=== PATIENT | female | born 1995 | race Caucasian/White ===

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

== ENCOUNTER 2018-08-04 12:29 | Emergency (ER) | payer SELFPAY ==
[2018-08-04] MEDS ORDERED: BENZONATATE 100 MG CAPSULE PO ONE (13:11)
[2018-08-04] MEDS: NORMAL SALINE 1000 ML 1,000 ML IV PRN ×2 (13:46→13:48)
--- NOTE | 2018-08-04 13:54 | ER Document Report ---
Entered by ADRIÁN KERN SCRIBE 08/04/18 1339 Acting as scribe for:JANICE CHU DO ED Medical Screen (RME) - General Chief Complaint: Cough Stated Complaint: DIFFICULTY BREATHING/COUGH/DIABETIC Time Seen by Provider: 08/04/18 13:06 Notes: 23-year-old female who is a type I diabetic that presents to the emergency department today with complaints of a cough with nasal congestion for approximately 1 month. Patient was seen at [facility] 3 weeks ago for this and was started on Zyrtec which she states has not helped her symptoms. Patient admits an occasionally productive cough without any blood in the sputum. Patient states her blood sugars have been reading "high" a lot of the time recently. Patient has been in DKA in the past and she states it feels "a little like that". Patient states with her cough she sometimes gets associated chest pain that radiates to her back and she feels "tired all the time". Patient denies any vomiting or fevers. Admits intermittent abdominal pain. Admits nausea. I have greeted and performed a rapid initial assessment of this patient. A comprehensive ED assessment and evaluation of the patient, analysis of test results, and completion of the medical decision making process will be conducted by additional ED providers. Review of systems: Constitutional: Denies fevers. EENT: Nasal congestion. Cardiovascular: No symptoms reported Respiratory: Cough. Chest wall pain. Gastrointestinal: Denies vomiting. Genitourinary: No symptoms reported Musculoskeletal: Back pain. Skin: No symptoms reported Hematologic/Lymphatic: No symptoms reported Neurological/Psychological: No symptoms reported Yes All other systems reviewed and negative PHYSICAL EXAM GENERAL: Alert, interacts well. Congested sounding voice. Appears fatigued. HEAD: Normocephalic, atraumatic. EYES: Pupils equal, round, and reactive to light. Extraocular movements intact. ENT: Oral mucosa dry, tongue midline. NECK: Full range of motion. Supple. Trachea midline. LUNGS: Clear to auscultation bilaterally, no wheezes, rales, or rhonchi. No respiratory distress. HEART: Tachycardic, regular rhythm. No murmurs, gallops, or rubs. EXTREMITIES: Moves all 4 extremities spontaneously. NEUROLOGICAL: Alert and oriented x3. Normal speech. PSYCH: Normal affect, normal mood. SKIN: Warm and dry. TRAVEL OUTSIDE OF THE [place] IN LAST 30 DAYS: No - Related Data Allergies/Adverse Reactions: tramadol Allergy (Verified 08/04/18 12:32) Past Medical History Renal/ Medical History: Denies: Hx Peritoneal Dialysis Psychiatric Medical History: Reports: Hx Depression - Immunizations Hx Diphtheria, Pertussis, Tetanus Vaccination: Yes Physical Exam - Vital signs Vitals: Temp Pulse Resp BP Pulse Ox 99.0 F 122 H 20 130/79 H 99 08/04/18 12:48 08/04/18 12:48 08/04/18 12:48 08/04/18 12:48 08/04/18 12:48 Course - Vital Signs Vital signs: Temp Pulse Resp BP Pulse Ox 99.0 F 122 H 20 130/79 H 99 08/04/18 12:48 08/04/18 12:48 08/04/18 12:48 08/04/18 12:48 08/04/18 12:48 I personally performed the services described in the documentation, reviewed and edited the documentation which was dictated to the scribe in my presence, and it accurately records my words and actions.
[2018-08-04 14:10] LABS: VENOUS BLOOD BASE EXCESS -15.7 mmol/L; VENOUS BLOOD HCO3 10.8 mmol/L (20-32); VENOUS BLOOD PCO2 28.3 mmHg (35-63); VENOUS BLOOD PH 7.2 (7.30-7.42)
[2018-08-04 14:12] LABS: APPEARANCE,URINE CLOUDY; BILIRUBIN,URINE NEGATIVE (NEGATIVE); COLOR,URINE STRAW; GLUCOSE, URINE >=500 mg/dL (NEGATIVE); KETONES,URINE 80 mg/dL (NEGATIVE); LEUKOCYTE ESTERASE,URINE TRACE (NEGATIVE); NITRITE,URINE NEGATIVE (NEGATIVE); PROTEIN,URINE NEGATIVE (NEGATIVE); URINE SPECIFIC GRAVITY 1.024; UROBILINOGEN,URINE NEGATIVE mg/dL (<2.0)
[2018-08-04 14:25] LABS: ABSOLUTE EOSINOPHILS # (AUTO) 0.1 10^3/uL (0.0-0.6); ABSOLUTE LYMPHOCYTES (AUTO) 1.4 10^3/uL (0.5-4.7); ABSOLUTE MONOCYTES (AUTO) 0.9 10^3/uL (0.1-1.4); ABSOLUTE NEUT (AUTO) 8.8 10^3/uL (1.7-8.2); BASOPHILS % (AUTO) 0.4 % (0-2); EOSINOPHILS % (AUTO) 0.9 % (0-6); HEMATOCRIT 42.1 % (36.0-47.0); HEMOGLOBIN 13.8 g/dL (12.0-15.5); LYMPHOCYTES % (AUTO) 12.3 % (13-45); MEAN CORPUSCULAR HEMOGLOBIN 33.2 pg (27.0-33.4); MEAN CORPUSCULAR HGB CONC 32.8 g/dL (32.0-36.0); MEAN CORPUSCULAR VOLUME 101 fl (80-97); MONOCYTES % (AUTO) 8.4 % (3-13); PLATELET COUNT 342 10^3/uL (150-450); RED BLOOD COUNT 4.16 10^6/uL (3.72-5.28); RED CELL DISTRIBUTION WIDTH 14.3 % (11.5-14.0); TOTAL CELLS COUNTED % (AUTO) 100 %; WHITE BLOOD COUNT 11.3 10^3/uL (4.0-10.5)
[2018-08-04 14:26] LABS: ALANINE AMINOTRANSFERASE 202 U/L (9-52); ALBUMIN 4.4 g/dL (3.5-5.0); ALKALINE PHOSPHATASE 100 U/L (38-126); ASPARTATE AMINO TRANSFERASE 124 U/L (14-36); BILIRUBIN,DIRECT 0.4 mg/dL (0.0-0.4); CALCIUM 9.5 mg/dL (8.4-10.2); CARBON DIOXIDE 11 mmol/L (22-30); GLUCOSE 352 mg/dL (75-110); POTASSIUM 4.2 mmol/L (3.6-5.0); TOTAL PROTEIN 6.9 g/dL (6.3-8.2)
[2018-08-04 14:28] LABS: BLOOD UREA NITROGEN 11 mg/dL (7-20)
[2018-08-04 14:31] LABS: CHLORIDE 95 mmol/L (98-107); SODIUM 133.5 mmol/L (137-145)
[2018-08-04 14:32] LABS: ANION GAP 28 (5-19)
[2018-08-04] MEDS ORDERED: NORMAL SALINE 1000 ML 1,000 ML IV ONE ×2 (14:33→14:38)
[2018-08-04] MEDS ORDERED: RINGERS SOLUTION,LACTATED 1,000 ML IV PRN (14:37)
--- NOTE | 2018-08-04 14:41 | RADIOLOGY REPORT (SQ) ---
EXAM DESCRIPTION: CHEST 2 VIEWS COMPLETED DATE/TIME: 08/04/2018 2:26 pm REASON FOR STUDY: cough, chest pain COMPARISON: None. EXAM PARAMETERS: NUMBER OF VIEWS: two views TECHNIQUE: Digital Frontal and Lateral radiographic views of the chest acquired. RADIATION DOSE: NA LIMITATIONS: none FINDINGS: LUNGS AND PLEURA: No opacities, masses or pneumothorax. No pleural effusion. MEDIASTINUM AND HILAR STRUCTURES: No masses or contour abnormalities. HEART AND VASCULAR STRUCTURES: Heart normal size. No evidence for failure. BONES: No acute findings. HARDWARE: None in the chest. OTHER: No other significant finding. IMPRESSION: NO ACUTE RADIOGRAPHIC FINDING IN THE CHEST. TECHNICAL DOCUMENTATION: JOB ID: [id number] [employer]- All Rights Reserved Reading location - IP/workstation name: [email or web address]
[2018-08-04] MEDS ORDERED: LIDOCAINE 2% INJ-PF (20 MG/ML) 10 ML AMPUL NEB ONE (14:53)
[2018-08-04] MEDS ORDERED: ACETAMINOPHEN 325 MG TABLET PO ONE (14:53)
[2018-08-04] MEDS ORDERED: INSULIN REG, HUMAN 100 UNIT/ML 3 ML VIAL (PYX) IV ONE (14:59)
--- NOTE | 2018-08-04 15:12 | ER Document Report ---
ED General - General Chief Complaint: Cough Stated Complaint: DIFFICULTY BREATHING/COUGH/DIABETIC Time Seen by Provider: 08/04/18 13:06 Notes: Patient is a 23-year-old female presents to the emergency department for generalized cough, congestion, body aches for the last 3 weeks. Patient states 3 weeks ago she was seen at the [facility] diagnosed with a sinus infection and told to take ymyd-ydh-ilczcaa Zyrtec. Patient states since then her generalized sinus pain and pressure has gotten worse. Patient states she took her blood sugar around noon today and it read high. Patient states she took 15 units of her NovoLog and then presented to the emergency room. Patient states she is a type I diabetic and has been in DKA before. States she was worried that she was in DKA again. Patient states she recently lost her insurance And has been trying to space out her insulin doses. patient is denying any nausea, vomiting, diarrhea, is afebrile. Past medical history: type I diabetic Medications: Lantus, NovoLog Allergies: Tramadol TRAVEL OUTSIDE OF THE [place] IN LAST 30 DAYS: No - Related Data Allergies/Adverse Reactions: tramadol Allergy (Verified 08/04/18 12:32) Past Medical History - General Information source: Patient - Social History Smoking Status: Current Every Day Smoker Family History: Reviewed & Not Pertinent Patient has suicidal ideation: No Patient has homicidal ideation: No Renal/ Medical History: Denies: Hx Peritoneal Dialysis Psychiatric Medical History: Reports: Hx Depression - Immunizations Hx Diphtheria, Pertussis, Tetanus Vaccination: Yes Review of Systems - Review of Systems Constitutional: See HPI EENT: See HPI Cardiovascular: No symptoms reported Respiratory: See HPI Gastrointestinal: See HPI Genitourinary: No symptoms reported Female Genitourinary: No symptoms reported Musculoskeletal: No symptoms reported Skin: No symptoms reported Hematologic/Lymphatic: No symptoms reported Neurological/Psychological: No symptoms reported Physical Exam - Vital signs Vitals: Temp Pulse Resp BP Pulse Ox 99.0 F 122 H 20 130/79 H 99 08/04/18 12:48 08/04/18 12:48 08/04/18 12:48 08/04/18 12:48 08/04/18 12:48 - Notes Notes: GENERAL: Alert, interacts well. Dry cough noted on examination HEAD: Normocephalic, atraumatic. No frontal or maxillary sinus tenderness noted on palpation EYES: Pupils equal, round, and reactive to light. Extraocular movements intact. ENT: Oral mucosa dry, tongue midline. Nares patent, TM's intact, nonerythematous, nonbulging bilaterally. Pharynx within normal limits no palatal petechiae or exudate noted NECK: Full range of motion. Supple. Trachea midline. LUNGS: Clear to auscultation bilaterally, no wheezes, rales, or rhonchi. No respiratory distress. HEART: Tachycardic rate and rhythm. No murmur ABDOMEN: Soft, non-tender. Non-distended. Bowel sounds present in all 4 quadrants. EXTREMITIES: Moves all 4 extremities spontaneously. No edema, normal radial and dorsalis pedis pulses bilaterally. No cyanosis. BACK: no cervical, thoracic, lumbar midline tenderness. No saddle anesthesia, normal distal neurovascular exam. NEUROLOGICAL: Alert and oriented x3. Normal speech. cranial nerves II through XII grossly intact. PSYCH: Normal affect, normal mood. SKIN: Warm, dry, normal turgor. No rashes or lesions noted. Course - Re-evaluation Re-evalutation: Patient's labs do show a leukocytosis of 11.3. Patient's VBG pH is 7.20 with an anion gap of 28 and a CO2 of 11. Patient's blood sugar is 352. And she has 80 ketones on her urine. Patient's chest x-ray is negative for pneumonia, pneumothorax, rib fracture. Discussed this case with Dr. Orta who agrees patient is in DKA, Insulin drip started and patient admitted to the hospitalist. Dr. Munoz agrees with admission, obs, medical floor. - Vital Signs Vital signs: Temp Pulse Resp BP Pulse Ox 99.0 F 122 H 20 130/79 H 99 08/04/18 12:48 08/04/18 12:48 08/04/18 12:48 08/04/18 12:48 08/04/18 12:48 - Laboratory Result Diagrams: 08/04/18 13:42 08/04/18 13:42 Laboratory results interpreted by me: 08/04/18 08/04/18 08/04/18 13:23 13:42 13:42 WBC 11.3 H MCV 101 H RDW 14.3 H Lymphocytes % 12.3 L Absolute Neutrophils 8.8 H VBG pH VBG pCO2 VBG HCO3 Sodium 133.5 L Chloride 95 L Carbon Dioxide 11 L Anion Gap 28 H Glucose 352 H AST 124 H ALT 202 H Urine Glucose (UA) >=500 H Urine Ketones 80 H Ur Leukocyte Esterase TRACE H 08/04/18 13:42 WBC MCV RDW Lymphocytes % Absolute Neutrophils VBG pH 7.20 L VBG pCO2 28.3 L VBG HCO3 10.8 L Sodium Chloride Carbon Dioxide Anion Gap Glucose AST ALT Urine Glucose (UA) Urine Ketones Ur Leukocyte Esterase Discharge - Discharge Clinical Impression: Diabetic keto-acidosis Qualifiers: Diabetes mellitus type: type 1 Diabetes mellitus complication detail: without coma Qualified Code(s): E10.10 - Type 1 diabetes mellitus with ketoacidosis without coma Condition: Stable Disposition: ADMITTED INPATIENT Admitting Provider: Hospitalist - Dr. Munoz Unit Admitted: Medical Floor
[2018-08-04] MEDS ORDERED: POTASSI CL 20 MEQ/NS 1L 1,000 ML IV PRN (16:00)
[2018-08-04] MEDS ORDERED: ACETAMINOPHEN 650 MG SUPP.RECT PR PRN (16:00)
[2018-08-04] MEDS ORDERED: ONDANSETRON HCL INJ/PF 4 MG/2 ML SDV IV PRN (16:00)
[2018-08-04] MEDS ORDERED: DEXTROSE 40% GEL 15 GM TUBE PO PRN ×4 (16:10→20:07)
[2018-08-04] MEDS ORDERED: DEXTROSE 50%-WATER 25 GM/50 ML DISP.SYRIN IV PRN ×4 (16:10→20:07)
[2018-08-04] MEDS ORDERED: NORMAL SALINE 100 ML with INSULIN REGULAR, HUMAN 100 UNIT IV PRN ×2 (16:10)
[2018-08-04] MEDS ORDERED: GLUCAGON,HUMAN RECOMB 1 MG INJ IM PRN ×2 (16:10→20:07)
[2018-08-04] MEDS ORDERED: DEXTROSE 5%-WATER 1000 ML 1,000 ML IV PRN (17:15)
[2018-08-04] MEDS ORDERED: GUAIFENESIN 600 MG TABLET.SA PO SCH ×2 (17:15→22:00)
[2018-08-04 17:44] LABS: ANION GAP 12 (5-19); BLOOD UREA NITROGEN 9 mg/dL (7-20); CALCIUM 8.8 mg/dL (8.4-10.2); CHLORIDE 102 mmol/L (98-107); GLUCOSE 120 mg/dL (75-110); POTASSIUM 3.9 mmol/L (3.6-5.0); SODIUM 134.8 mmol/L (137-145)
[2018-08-04 17:56] LABS: CARBON DIOXIDE 21 mmol/L (22-30)
[2018-08-04] MEDS ORDERED: AZITHROMYCIN 250 MG TABLET PO SCH (18:00)
[2018-08-04] MEDS ORDERED: ENOXAPARIN SODIUM INJ 40 MG/0.4 ML DISP.SYRIN SUBCUT SCH (18:00)
[2018-08-04] MEDS ORDERED: INSULIN GLARGINE,HUM.REC.ANLOG 300 UNIT/3 ML INSULN.PEN SUBCUT ONE (19:03)
[2018-08-04] MEDS ORDERED: GUAIFENESIN/D-METHORPHAN (200-20 MG) SYRUP 10 ML PO PRN (19:34)
--- NOTE | 2018-08-04 20:02 | PDOC H&P ---
History of Present Illness Admission Date/PCP: 08/04/18 16:13 History of Present Illness: AYAH CELAYA is a 23 year old female past medical history of type 1 diabetes presenting to ED complaining of persistent productive cough accompanied with generalized body aches and pleuritic chest pain for the last 3 weeks. Stating that she was seen at the [facility] 3 weeks ago and was diagnosed with sinus infection and was given [id number] Zyrtec but she did not improve and continued to have worsening productive cough with generalized body aches. She denies any fever, chills, shortness of breath, nausea, vomiting, abdominal pain, diarrhea, constipation or any urinary symptoms. Stating that she is compliant with her insulin. In ED she was found to have a blood sugar of 352 with anion gap of 28. On CBC mild leukocytosis with no bandemia. Hospitalist was consulted for DKA management. Past Medical History Psychiatric Medical History: Reports: Depression Social History Smoking Status: Current Every Day Smoker Family History Family History: Reviewed & Not Pertinent Parental Family History Reviewed: Yes Children Family History Reviewed: Yes Sibling(s) Family History Reviewed.: Yes Medication/Allergy Home Medications: Insulin Aspart [Novolog Flexpen] 0 unit SQ .SLIDING SCALE 11/10/16 Cetirizine HCl [Zyrtec 10 mg Tablet] 10 mg PO DAILY 08/04/18 Allergies/Adverse Reactions: tramadol Allergy (Verified 08/04/18 12:32) Review of Systems Review of Systems: As per HPI Physical Exam Vital Signs: Temp Pulse Resp BP Pulse Ox 99.0 F 122 H 16 124/79 100 08/04/18 12:48 08/04/18 12:48 08/04/18 18:01 08/04/18 18:01 08/04/18 18:01 Intake & Output 08/03/18 08/04/18 08/05/18 06:59 06:59 06:59 Intake Total 1999 Balance 1999 Weight 66.4 kg General appearance: PRESENT: no acute distress, well-developed, well-nourished Head exam: PRESENT: atraumatic, normocephalic Respiratory exam: PRESENT: clear to auscultation nahed. ABSENT: rales, rhonchi, wheezes Cardiovascular exam: PRESENT: RRR. ABSENT: diastolic murmur, rubs, systolic murmur GI/Abdominal exam: PRESENT: normal bowel sounds, soft. ABSENT: distended, guarding, mass, organolmegaly, rebound, tenderness Extremities exam: PRESENT: full ROM. ABSENT: calf tenderness, clubbing, pedal edema Neurological exam: PRESENT: alert, awake, oriented to person, oriented to place, oriented to time, oriented to situation, CN II-XII grossly intact. ABSENT: motor sensory deficit Skin exam: PRESENT: dry, intact, warm. ABSENT: cyanosis, rash Results Laboratory Results: 08/04/18 13:42 08/04/18 17:05 08/04/18 08/04/18 08/04/18 13:23 13:42 13:42 WBC 11.3 H RBC 4.16 Hgb 13.8 Hct 42.1 MCV 101 H MCH 33.2 MCHC 32.8 RDW 14.3 H Plt Count 342 Seg Neutrophils % 78.0 Lymphocytes % 12.3 L Monocytes % 8.4 Eosinophils % 0.9 Basophils % 0.4 Absolute Neutrophils 8.8 H Absolute Lymphocytes 1.4 Absolute Monocytes 0.9 Absolute Eosinophils 0.1 Absolute Basophils 0.0 VBG pH VBG pCO2 VBG HCO3 VBG Base Excess Sodium 133.5 L Potassium 4.2 Chloride 95 L Carbon Dioxide 11 L Anion Gap 28 H BUN 11 Creatinine 0.84 Est GFR ( Amer) > 60 Est GFR (Non-Af Amer) > 60 Glucose 352 H Calcium 9.5 Total Bilirubin 1.0 AST 124 H ALT 202 H Alkaline Phosphatase 100 Total Protein 6.9 Albumin 4.4 Serum HCG, Qual Urine Color STRAW Urine Appearance CLOUDY Urine pH 5.0 Ur Specific [place] 1.024 Urine Protein NEGATIVE Urine Glucose (UA) >=500 H Urine Ketones 80 H Urine Blood NEGATIVE Urine Nitrite NEGATIVE Ur Leukocyte Esterase TRACE H Urine WBC (Auto) 4 Urine RBC (Auto) 3 08/04/18 08/04/18 08/04/18 13:42 13:42 17:05 WBC RBC Hgb Hct MCV MCH MCHC RDW Plt Count Seg Neutrophils % Lymphocytes % Monocytes % Eosinophils % Basophils % Absolute Neutrophils Absolute Lymphocytes Absolute Monocytes Absolute Eosinophils Absolute Basophils VBG pH 7.20 L VBG pCO2 28.3 L VBG HCO3 10.8 L VBG Base Excess -15.7 Sodium 134.8 L Potassium 3.9 Chloride 102 Carbon Dioxide 21 L D Anion Gap 12 BUN 9 Creatinine 0.61 Est GFR ( Amer) > 60 Est GFR (Non-Af Amer) > 60 Glucose 120 H Calcium 8.8 Total Bilirubin AST ALT Alkaline Phosphatase Total Protein Albumin Serum HCG, Qual NEGATIVE Urine Color Urine Appearance Urine pH Ur Specific [place] Urine Protein Urine Glucose (UA) Urine Ketones Urine Blood Urine Nitrite Ur Leukocyte Esterase Urine WBC (Auto) Urine RBC (Auto) Impressions: Chest X-Ray 08/04/18 13:10 IMPRESSION: NO ACUTE RADIOGRAPHIC FINDING IN THE CHEST. Assessment & Plan - Diagnosis (1) Diabetic keto-acidosis Qualifiers: Diabetes mellitus type: type 1 Diabetes mellitus complication detail: without coma Qualified Code(s): E10.10 - Type 1 diabetes mellitus with ketoacidosis without coma Is this a current diagnosis for this admission?: Yes Plan: Started on DKA protocol. We will switch to subcutaneous insulin once anion gap is closed. (2) Bronchitis Is this a current diagnosis for this admission?: Yes Plan: Patient has chronic persistent bronchitis for the last 3 weeks which may have contributed to her DKA. She is also having mild leukocytosis. Will start empiric azithromycin for 4 days.
[2018-08-04] MEDS ORDERED: INSULIN REG, HUMAN 100 UNIT/ML 3 ML VIAL (PYX) SUBCUT PRN (20:07)
[2018-08-04 20:15] VITALS: BP 132/80
[2018-08-04 21:10] LABS: ANION GAP 10 (5-19); BLOOD UREA NITROGEN 7 mg/dL (7-20); CALCIUM 8.3 mg/dL (8.4-10.2); CARBON DIOXIDE 23 mmol/L (22-30); CHLORIDE 101 mmol/L (98-107); GLUCOSE 288 mg/dL (75-110); POTASSIUM 4.1 mmol/L (3.6-5.0); SODIUM 134.2 mmol/L (137-145)
[2018-08-04] MEDS ORDERED: FAMOTIDINE 20 MG TABLET PO SCH (22:00)
[2018-08-05] MEDS ORDERED: INSULIN GLARGINE,HUM.REC.ANLOG 300 UNIT/3 ML INSULN.PEN SUBCUT ONE (18:25)
== END 2018-08-04 21:34 | disposition other institution (70) ==
LOC: ER 12:29 → UNDOADMIN 16:13 → EH 16:13 → ER 21:34
DX: E10.10 Type 1 diabetes mellitus with ketoacidosis without coma (principal); R05 Cough; R09.81 Nasal congestion; M79.10 Myalgia, unspecified site; Z79.4 Long term (current) use of insulin; F17.200 Nicotine dependence, unspecified, uncomplicated
CPT/HCPCS: 94640; 99284; 96360; 96361; 36415; 82962; 84703; 85025; 80048; 80053; 81001; 82803; 71046; J1815; J7060; J7030; J3480; J3490

== ENCOUNTER 2018-08-06 12:56 | Inpatient (IN) | payer SELFPAY ==
[2018-08-06] MEDS ORDERED: NORMAL SALINE 1000 ML 1,000 ML IV ONE ×2 (13:12→14:07)
--- NOTE | 2018-08-06 13:14 | ER Document Report ---
ED Medical Screen (RME) - General Chief Complaint: High Blood Sugar Stated Complaint: COUGH Time Seen by Provider: 08/06/18 13:06 Notes: 23-year-old female patient with coughing, chest pain, blood sugars running high. She was admitted 2 days ago with same symptoms and DKA, she eloped later that evening. 2 days ago got admitted and she eloped after she got admitted I have greeted and performed a rapid initial assessment of this patient. A comprehensive ED assessment and evaluation of the patient, analysis of test results and completion of the medical decision making process will be conducted by additional ED providers. TRAVEL OUTSIDE OF THE [place] IN LAST 30 DAYS: No - Related Data Allergies/Adverse Reactions: tramadol Allergy (Verified 08/06/18 12:57) Past Medical History Renal/ Medical History: Denies: Hx Peritoneal Dialysis Psychiatric Medical History: Reports: Hx Depression - Immunizations Hx Diphtheria, Pertussis, Tetanus Vaccination: Yes Physical Exam - Vital signs Vitals: Temp Pulse Resp BP Pulse Ox 98.5 F 125 H 24 H 147/98 H 100 08/06/18 13:03 08/06/18 13:03 08/06/18 13:03 08/06/18 13:03 08/06/18 13:03 Course - Vital Signs Vital signs: Temp Pulse Resp BP Pulse Ox 98.5 F 125 H 24 H 147/98 H 100 08/06/18 13:03 08/06/18 13:03 08/06/18 13:03 08/06/18 13:03 08/06/18 13:03
[2018-08-06 13:43] LABS: ABSOLUTE BASOPHILS # (AUTO) 0.1 10^3/uL (0.0-0.2); ABSOLUTE EOSINOPHILS # (AUTO) 0.1 10^3/uL (0.0-0.6); ABSOLUTE LYMPHOCYTES (AUTO) 1.1 10^3/uL (0.5-4.7); ABSOLUTE MONOCYTES (AUTO) 0.8 10^3/uL (0.1-1.4); ABSOLUTE NEUT (AUTO) 4.6 10^3/uL (1.7-8.2); BASOPHILS % (AUTO) 0.8 % (0-2); EOSINOPHILS % (AUTO) 1.1 % (0-6); HEMATOCRIT 43.5 % (36.0-47.0); HEMOGLOBIN 14.4 g/dL (12.0-15.5); LYMPHOCYTES % (AUTO) 17.2 % (13-45); MEAN CORPUSCULAR HEMOGLOBIN 33.1 pg (27.0-33.4); MEAN CORPUSCULAR HGB CONC 33.2 g/dL (32.0-36.0); MEAN CORPUSCULAR VOLUME 100 fl (80-97); MONOCYTES % (AUTO) 11.5 % (3-13); PLATELET COUNT 352 10^3/uL (150-450); RED BLOOD COUNT 4.36 10^6/uL (3.72-5.28); RED CELL DISTRIBUTION WIDTH 13.8 % (11.5-14.0); SEGMENTED NEUTROPHILS % (AUTO) 69.4 % (42-78); TOTAL CELLS COUNTED % (AUTO) 100 %; WHITE BLOOD COUNT 6.7 10^3/uL (4.0-10.5)
[2018-08-06 13:47] LABS: APPEARANCE,URINE SLIGHTLY-CLOUDY; BILIRUBIN,URINE NEGATIVE (NEGATIVE); COLOR,URINE STRAW; GLUCOSE, URINE >=500 mg/dL (NEGATIVE); KETONES,URINE 80 mg/dL (NEGATIVE); LEUKOCYTE ESTERASE,URINE NEGATIVE (NEGATIVE); NITRITE,URINE NEGATIVE (NEGATIVE); PROTEIN,URINE NEGATIVE (NEGATIVE); UROBILINOGEN,URINE NEGATIVE mg/dL (<2.0)
[2018-08-06 14:02] LABS: BLOOD UREA NITROGEN 10 mg/dL (7-20); CALCIUM 9.4 mg/dL (8.4-10.2); GLUCOSE 394 mg/dL (75-110)
[2018-08-06 14:03] LABS: ALANINE AMINOTRANSFERASE 136 U/L (9-52); ALBUMIN 4.6 g/dL (3.5-5.0); ALKALINE PHOSPHATASE 121 U/L (38-126); ASPARTATE AMINO TRANSFERASE 102 U/L (14-36); BILIRUBIN,DIRECT 0.3 mg/dL (0.0-0.4); BILIRUBIN,TOTAL 0.8 mg/dL (0.2-1.3); POTASSIUM 4.3 mmol/L (3.6-5.0); TOTAL PROTEIN 7.1 g/dL (6.3-8.2)
--- NOTE | 2018-08-06 14:04 | ER Document Report ---
ED General - General Chief Complaint: High Blood Sugar Stated Complaint: COUGH Time Seen by Provider: 08/06/18 13:06 TRAVEL OUTSIDE OF THE [place] IN LAST 30 DAYS: No - HPI Notes: Patient is a 23-year-old female with a history of insulin-dependent diabetes who presents to the emergency department complaining of continued cough ejection, body aches which she has had for about 3 weeks. Patient was seen at [facility] and was given Zyrtec at that time. Patient states that she started having high sugars a couple days ago and was evaluated here in the emergency department. She was found to be in DKA and was admitted. Patient states that she did elope later that evening for unknown reasons, but wanted to leave. She was started on Zithromax at that time as well for bronchitis which she only got 1 dose of. Patient states that since she has left she has had continued high glucose readings, body aching, and cough. Patient states her symptoms are the same as when she was admitted previously. She is still able to eat and drink without difficulty. She is urinating normally and having normal bowel movements. Pt is on lantus/novolog with sliding scale and reports taking her insulin as prescribed. She does not have a PCM. Denies any headache, fever, neck pain, changes in vision/speech/mentation/hearing, sore throat, chest pain, palpitations, syncope, shortness of breath, wheeze, dyspnea, abdominal pain, nausea/vomiting/diarrhea, urinary retention, dysuria, hematuria, loss of control of bowel or bladder, numbness/tingling, saddle anesthesia, muscle paralysis/weakness, or rash. - Related Data Allergies/Adverse Reactions: tramadol Allergy (Verified 08/06/18 12:57) Past Medical History - Social History Smoking Status: Current Every Day Smoker Frequency of alcohol use: None Drug Abuse: None Family History: Reviewed & Not Pertinent Patient has suicidal ideation: No Patient has homicidal ideation: No Neurological Medical History: Reports: Hx Migraine Endocrine Medical History: Reports: Hx Diabetes Mellitus Type 1 Renal/ Medical History: Denies: Hx Peritoneal Dialysis Psychiatric Medical History: Reports: Hx Bipolar Disorder, Hx Depression - Immunizations Hx Diphtheria, Pertussis, Tetanus Vaccination: Yes Review of Systems - Review of Systems -: Yes All other systems reviewed and negative Physical Exam - Vital signs Vitals: Pulse 125 H 08/06/18 13:00 - Notes Notes: PHYSICAL EXAMINATION: GENERAL: no acute resp distress. Laying comfortably on the bed. HEAD: Atraumatic, normocephalic. EYES: Pupils equal round and reactive to light, extraocular movements intact, sclera anicteric, conjunctiva are normal. ENT: Nares patent and with clear discharge. oropharynx clear without exudates. No tonsilar hypertrophy or erythema. Moist mucous membranes. NECK: Normal range of motion, supple without lymphadenopathy LUNGS: Breath sounds clear to auscultation bilaterally and equal. No wheezes rales or rhonchi. HEART: Tachycardic otherwise Regular rate and rhythm without murmurs, rubs, gallops. ABDOMEN: Soft, nontender, nondistended abdomen. No guarding, no rebound. No masses appreciated. Normal bowel sounds present. No CVA tenderness bilaterally. Musculoskeletal: FROM to passive/active. Strength 5+/5. Extremities: No cyanosis, clubbing, or edema b/l. Peripheral pulses 2+. Capillary refill less than 3 seconds. NEUROLOGICAL: Cranial nerves grossly intact. Normal speech, normal gait. Normal sensory, motor exams PSYCH: flat SKIN: Warm, Dry, normal turgor, no rashes or lesions noted. Course - Re-evaluation Re-evalutation: 08/06/18 14:25 Patient is an afebrile, well-hydrated 23-year-old female who presents emergency department still in DKA from when she eloped 2 days ago. Vitals are currently acceptable. Patient will be admitted for DKA to the hospital. Insulin infusion order set ordered as well as an amp of bicarb. Patient has been receiving fluids. She is not having any episodes of emesis. Call placed to the hospitalist who will call me back. 08/06/18 14:39 Dr. Mullins called me back and would like Dr. Munoz to admit as he admitted her [address] Munoz accepted pt for admit. - Vital Signs Vital signs: Temp Pulse Resp BP Pulse Ox 98.5 F 125 H 24 H 147/98 H 100 08/06/18 13:03 08/06/18 13:03 08/06/18 13:03 08/06/18 13:03 08/06/18 13:03 - Laboratory Result Diagrams: 08/06/18 13:26 08/06/18 13:26 Laboratory results interpreted by me: 08/06/18 08/06/18 08/06/18 13:26 13:26 13:26 MCV 100 H VBG pH VBG pCO2 VBG HCO3 Sodium 132.3 L Chloride 95 L Carbon Dioxide 13 L Anion Gap 24 H Glucose 394 H POC Glucose AST 102 H ALT 136 H Urine Glucose (UA) >=500 H Urine Ketones 80 H 08/06/18 08/06/18 13:26 13:37 MCV VBG pH 7.26 L VBG pCO2 21.3 L VBG HCO3 9.4 L Sodium Chloride Carbon Dioxide Anion Gap Glucose POC Glucose 337 H AST ALT Urine Glucose (UA) Urine Ketones Critical Care Note - Critical Care Note Total time excluding time spent on procedures (mins): 35 Discharge - Discharge Clinical Impression: DKA (diabetic ketoacidoses) Condition: Stable Disposition: ADMITTED INPATIENT Admitting Provider: Hospitalist Unit Admitted: [facility]
[2018-08-06 14:08] LABS: CARBON DIOXIDE 13 mmol/L (22-30); CHLORIDE 95 mmol/L (98-107); SODIUM 132.3 mmol/L (137-145)
[2018-08-06 14:10] LABS: ANION GAP 24 (5-19)
[2018-08-06 14:14] LABS: VENOUS BLOOD BASE EXCESS -15.2 mmol/L; VENOUS BLOOD HCO3 9.4 mmol/L (20-32); VENOUS BLOOD PCO2 21.3 mmHg (35-63); VENOUS BLOOD PH 7.26 (7.30-7.42)
[2018-08-06] MEDS ORDERED: DEXTROSE 50%-WATER 25 GM/50 ML DISP.SYRIN IV PRN ×4 (14:24→15:07)
[2018-08-06] MEDS ORDERED: NORMAL SALINE 100 ML with INSULIN REGULAR, HUMAN 100 UNIT IV PRN ×2 (14:24)
[2018-08-06] MEDS ORDERED: DEXTROSE 40% GEL 15 GM TUBE PO PRN ×4 (14:24→15:07)
[2018-08-06] MEDS ORDERED: GLUCAGON,HUMAN RECOMB 1 MG INJ IM PRN ×2 (14:24→15:07)
[2018-08-06] MEDS ORDERED: SODIUM BICARBONATE 8.4% INJ 50 MEQ/50 ML DISP.SYRIN IV ONE (14:25)
--- NOTE | 2018-08-06 14:44 | RADIOLOGY REPORT (SQ) ---
EXAM DESCRIPTION: CHEST SINGLE VIEW COMPLETED DATE/TIME: 08/06/2018 2:29 pm REASON FOR STUDY: cough COMPARISON: AP chest 08/04/2018 EXAM PARAMETERS: NUMBER OF VIEWS: One view. TECHNIQUE: Single frontal radiographic view of the chest acquired. RADIATION DOSE: NA LIMITATIONS: None. FINDINGS: LUNGS AND PLEURA: No opacities, masses or pneumothorax. No pleural effusion. MEDIASTINUM AND HILAR STRUCTURES: No masses. Contour normal. HEART AND VASCULAR STRUCTURES: Heart normal in size. Normal vasculature. BONES: No acute findings. HARDWARE: None in the chest. OTHER: No other significant finding. IMPRESSION: NO ACUTE RADIOGRAPHIC FINDING IN THE CHEST. TECHNICAL DOCUMENTATION: JOB ID: [id number] [email or web address] All Rights Reserved Reading location - IP/workstation name: [email or web address]
[2018-08-06] MEDS ORDERED: INSULIN REG, HUMAN 100 UNIT/ML 3 ML VIAL (PYX) ONE (14:45)
[2018-08-06] MEDS ORDERED: POTASSI CL 20 MEQ/D5NS 1L 20 MEQ/1,000 ML RTUINJ IV PRN (15:07)
[2018-08-06] MEDS: GUAIFENESIN/CODEINE PHOS 100-10 MG/ 5 ML UDC PO SCH (16:07)
[2018-08-06] MEDS ORDERED: AZITHROMYCIN 250 MG TABLET PO ONE (16:30)
[2018-08-06] MEDS ORDERED: ACETAMINOPHEN 325 MG TABLET PO PRN (16:31)
[2018-08-06] MEDS ORDERED: IPRATROPIUM/ALBUTEROL 0.5-2.5 MG/3 ML AMPUL NEB PRN (16:31)
[2018-08-06] MEDS ORDERED: ONDANSETRON HCL INJ/PF 4 MG/2 ML SDV IV PRN (16:31)
--- NOTE | 2018-08-06 16:41 | PDOC H&P ---
History of Present Illness Admission Date/PCP: 08/06/18 15:17 History of Present Illness: AYAH CELAYA is a 23 year old female past medical history of type 1 diabetes presenting to ED complaining of persistent productive cough accompanied with generalized body aches and pleuritic chest pain for the last 3 weeks. Stating that she was seen at the [facility] 3 weeks ago and was diagnosed with sinus infection and was given inqo-rrv-asmesct Zyrtec but she did not improve and continued to have worsening productive cough with generalized body aches. On 08/04/2018 she was admitted for DKA and anion gap of of 28, CBC mild leukocytosis with no bandemia. Patient was admited for DKA management unfortunately she eloped hospital without finishing her treatment. She was started on Zithromax at that time as well for bronchitis which she only got 1 dose of. Since she has left she has had continued high glucose readings, body aching, and cough. She is having same symptoms like when she was admitted previously. She is PO tolerant and having normal bowel and bladder movements. Denies any headache, fever, neck pain, changes in vision/speech/mentation/hearing, sore throat, chest pain, palpitations, syncope, shortness of breath, wheeze, dyspnea, abdominal pain, nausea/vomiting/diarrhea, urinary retention, dysuria, hematuria Past Medical History Neurological Medical History: Reports: Migraine Endocrine Medical History: Reports: Diabetes Mellitus Type 1 Psychiatric Medical History: Reports: Bipolar Disorder, Depression Social History Smoking Status: Current Every Day Smoker Family History Family History: Reviewed & Not Pertinent Parental Family History Reviewed: Yes Children Family History Reviewed: Yes Sibling(s) Family History Reviewed.: Yes Medication/Allergy Home Medications: Insulin Aspart [Novolog Flexpen] 0 unit SQ .SLIDING SCALE 11/10/16 Cetirizine HCl [Zyrtec 10 mg Tablet] 10 mg PO DAILY 08/04/18 Azithromycin [Zithromax 250 mg Tablet] 250 mg PO DAILY 3 Days #3 tablet 08/07/18 Guaifenesin/D-Methorphan Hb [Robitussin-Dm Syrup 10 Ml Udcup] 10 ml PO QID 4 Days #14 syrup 08/07/18 Insulin Aspart [Novolog Flexpen] 5 unit SUBCUT AC 30 Days #3 pen 08/07/18 Insulin Glargine,Hum.rec.anlog [Lantus Insulin 100 Unit/mL] 18 unit SUBCUT QHS 30 Days #3 insuln.pen 08/07/18 Allergies/Adverse Reactions: tramadol Allergy (Verified 08/06/18 12:57) Review of Systems Review of Systems: As per HPI. Physical Exam Vital Signs: Temp Pulse Resp BP Pulse Ox 98.5 F 125 H 24 H 147/98 H 100 08/06/18 13:03 08/06/18 13:03 08/06/18 13:03 08/06/18 13:03 08/06/18 13:03 Intake & Output 08/05/18 08/06/18 08/07/18 06:59 06:59 06:59 Intake Total 1000 Balance 1000 Weight 65 kg General appearance: PRESENT: mild distress Head exam: PRESENT: atraumatic, normocephalic Throat exam: ABSENT: post pharyngeal erythema, tonsillar erythema, tonsillar exudate, tonsillogmegaly, other Neck exam: ABSENT: carotid bruit, JVD, lymphadenopathy, thyromegaly Respiratory exam: PRESENT: clear to auscultation nahed. ABSENT: rales, rhonchi, wheezes Cardiovascular exam: PRESENT: RRR. ABSENT: diastolic murmur, rubs, systolic murmur GI/Abdominal exam: PRESENT: normal bowel sounds, soft. ABSENT: distended, guarding, mass, organolmegaly, rebound, tenderness Neurological exam: PRESENT: alert, awake, oriented to person, oriented to place, oriented to time, oriented to situation, CN II-XII grossly intact. ABSENT: motor sensory deficit Results Laboratory Results: 08/06/18 13:26 08/06/18 13:26 08/06/18 08/06/18 08/06/18 13:26 13:26 13:26 WBC 6.7 RBC 4.36 Hgb 14.4 Hct 43.5 MCV 100 H MCH 33.1 MCHC 33.2 RDW 13.8 Plt Count 352 Seg Neutrophils % 69.4 Lymphocytes % 17.2 Monocytes % 11.5 Eosinophils % 1.1 Basophils % 0.8 Absolute Neutrophils 4.6 Absolute Lymphocytes 1.1 Absolute Monocytes 0.8 Absolute Eosinophils 0.1 Absolute Basophils 0.1 VBG pH VBG pCO2 VBG HCO3 VBG Base Excess Sodium 132.3 L Potassium 4.3 Chloride 95 L Carbon Dioxide 13 L Anion Gap 24 H BUN 10 Creatinine 0.77 Est GFR ( Amer) > 60 Est GFR (Non-Af Amer) > 60 Glucose 394 H Calcium 9.4 Magnesium 1.8 Total Bilirubin 0.8 AST 102 H ALT 136 H Alkaline Phosphatase 121 Total Protein 7.1 Albumin 4.6 Urine Color STRAW Urine Appearance SLIGHTLY-CLOUDY Urine pH 5.0 Ur Specific [place] 1.020 Urine Protein NEGATIVE Urine Glucose (UA) >=500 H Urine Ketones 80 H Urine Blood NEGATIVE Urine Nitrite NEGATIVE Ur Leukocyte Esterase NEGATIVE Urine WBC (Auto) 2 Urine RBC (Auto) 1 08/06/18 13:26 WBC RBC Hgb Hct MCV MCH MCHC RDW Plt Count Seg Neutrophils % Lymphocytes % Monocytes % Eosinophils % Basophils % Absolute Neutrophils Absolute Lymphocytes Absolute Monocytes Absolute Eosinophils Absolute Basophils VBG pH 7.26 L VBG pCO2 21.3 L VBG HCO3 9.4 L VBG Base Excess -15.2 Sodium Potassium Chloride Carbon Dioxide Anion Gap BUN Creatinine Est GFR ( Amer) Est GFR (Non-Af Amer) Glucose Calcium Magnesium Total Bilirubin AST ALT Alkaline Phosphatase Total Protein Albumin Urine Color Urine Appearance Urine pH Ur Specific [place] Urine Protein Urine Glucose (UA) Urine Ketones Urine Blood Urine Nitrite Ur Leukocyte Esterase Urine WBC (Auto) Urine RBC (Auto) Impressions: Chest X-Ray 08/06/18 14:00 IMPRESSION: NO ACUTE RADIOGRAPHIC FINDING IN THE CHEST. Assessment & Plan - Diagnosis (1) Diabetic keto-acidosis Qualifiers: Diabetes mellitus type: type 1 Diabetes mellitus complication detail: without coma Qualified Code(s): E10.10 - Type 1 diabetes mellitus with ke toacidosis without coma Is this a current diagnosis for this admission?: Yes Plan: Started on DKA protocol. (2) Bronchitis Is this a current diagnosis for this admission?: Yes Plan: Will start on azithromycin. Sputum culture.
[2018-08-07 01:03] LABS: ANION GAP 10 (5-19); BLOOD UREA NITROGEN 9 mg/dL (7-20); CALCIUM 8.1 mg/dL (8.4-10.2); CARBON DIOXIDE 20 mmol/L (22-30); CHLORIDE 107 mmol/L (98-107); GLUCOSE 274 mg/dL (75-110); POTASSIUM 4.6 mmol/L (3.6-5.0); SODIUM 137.2 mmol/L (137-145)
[2018-08-07] MEDS: FAMOTIDINE 20 MG TABLET PO SCH ×2 (02:40→10:45)
[2018-08-07] MEDS: HEPARIN SOD (PORCINE) 5,000 UNIT/ML 1 ML SYRINGE SUBCUT SCH ×3 (02:40→14:31)
[2018-08-07] MEDS: GUAIFENESIN/CODEINE PHOS 100-10 MG/ 5 ML UDC PO SCH ×3 (02:40→14:23)
[2018-08-07] MEDS ORDERED: INSULIN GLARGINE,HUM.REC.ANLOG 300 UNIT/3 ML INSULN.PEN SUBCUT ONE (03:29)
[2018-08-07] MEDS: INSULIN REG, HUMAN 100 UNIT/ML 3 ML VIAL (PYX) SUBCUT PRN ×2 (04:16→08:03)
[2018-08-07 07:00] LABS: ABSOLUTE EOSINOPHILS # (AUTO) 0.2 10^3/uL (0.0-0.6); ABSOLUTE LYMPHOCYTES (AUTO) 2.2 10^3/uL (0.5-4.7); ABSOLUTE MONOCYTES (AUTO) 0.6 10^3/uL (0.1-1.4); ABSOLUTE NEUT (AUTO) 1.6 10^3/uL (1.7-8.2); BASOPHILS % (AUTO) 1.1 % (0-2); EOSINOPHILS % (AUTO) 3.8 % (0-6); LYMPHOCYTES % (AUTO) 47.2 % (13-45); MEAN CORPUSCULAR HEMOGLOBIN 33.5 pg (27.0-33.4); MEAN CORPUSCULAR HGB CONC 34.1 g/dL (32.0-36.0); MEAN CORPUSCULAR VOLUME 98 fl (80-97); MONOCYTES % (AUTO) 14.1 % (3-13); PLATELET COUNT 265 10^3/uL (150-450); RED BLOOD COUNT 3.56 10^6/uL (3.72-5.28); SEGMENTED NEUTROPHILS % (AUTO) 33.8 % (42-78); TOTAL CELLS COUNTED % (AUTO) 100 %; WHITE BLOOD COUNT 4.6 10^3/uL (4.0-10.5)
[2018-08-07 07:10] LABS: ANION GAP 15 (5-19); BLOOD UREA NITROGEN 13 mg/dL (7-20); CALCIUM 8.1 mg/dL (8.4-10.2); CARBON DIOXIDE 18 mmol/L (22-30); CHLORIDE 104 mmol/L (98-107); GLUCOSE 281 mg/dL (75-110); POTASSIUM 4.3 mmol/L (3.6-5.0); SODIUM 136.8 mmol/L (137-145)
[2018-08-07 07:11] LABS: HEMOGLOBIN 11.9 g/dL (12.0-15.5)
[2018-08-07] MEDS ORDERED: AZITHROMYCIN 250 MG TABLET PO SCH (10:00)
[2018-08-07 12:41] LABS: ANION GAP 5 (5-19); BLOOD UREA NITROGEN 11 mg/dL (7-20); CALCIUM 8.6 mg/dL (8.4-10.2); CARBON DIOXIDE 24 mmol/L (22-30); CHLORIDE 104 mmol/L (98-107); GLUCOSE 377 mg/dL (75-110); POTASSIUM 4.6 mmol/L (3.6-5.0); SODIUM 133.1 mmol/L (137-145)
[2018-08-07] MEDS ORDERED: GLUCAGON,HUMAN RECOMB 1 MG INJ IM PRN ×2 (13:59→14:06)
[2018-08-07] MEDS ORDERED: DEXTROSE 40% GEL 15 GM TUBE PO PRN ×4 (13:59→14:06)
[2018-08-07] MEDS ORDERED: DEXTROSE 50%-WATER 25 GM/50 ML DISP.SYRIN IV PRN ×4 (13:59→14:06)
[2018-08-07] MEDS ORDERED: INSULIN LISPRO 100 UNIT/ML 3 ML VIAL SUBCUT PRN (14:06)
[2018-08-07] MEDS: INSULIN LISPRO 100 UNIT/ML 3 ML VIAL SUBCUT PRN ×2 (14:25→16:19)
[2018-08-07 18:00] VITALS: BP 136/96
[2018-08-07] MEDS ORDERED: INSULIN GLARGINE,HUM.REC.ANLOG 300 UNIT/3 ML INSULN.PEN SUBCUT SCH (22:00)
--- NOTE | 2018-08-12 13:10 | PDOC DISCHARGE SUMMARY ---
General - Admit/Disc Date/PCP Admission Date/Primary Care Provider: 08/06/18 15:17 Discharge Date: 08/07/18 - Discharge Diagnosis (1) Diabetic keto-acidosis Is this a current diagnosis for this admission?: Yes (2) Bronchitis Is this a current diagnosis for this admission?: Yes - Additional Information Discharge Diet: As Tolerated Discharge Activity: Activity As Tolerated Prescriptions: Azithromycin [Zithromax 250 mg Tablet] 250 mg PO DAILY 3 Days #3 tablet Guaifenesin/D-Methorphan Hb [Robitussin-Dm Syrup 10 Ml Udcup] 10 ml PO QID 4 Days #14 syrup Insulin Glargine,Hum.rec.anlog [Lantus Insulin 100 Unit/mL] 18 unit SUBCUT QHS 30 Days #3 insuln.pen Insulin Aspart [Novolog Flexpen] 5 unit SUBCUT AC 30 Days #3 pen Home Medications: Insulin Aspart [Novolog Flexpen] 0 unit SQ .SLIDING SCALE 11/10/16 Cetirizine HCl [Zyrtec 10 mg Tablet] 10 mg PO DAILY 08/04/18 Azithromycin [Zithromax 250 mg Tablet] 250 mg PO DAILY 3 Days #3 tablet 08/07/18 Guaifenesin/D-Methorphan Hb [Robitussin-Dm Syrup 10 Ml Udcup] 10 ml PO QID 4 Days #14 syrup 08/07/18 Insulin Aspart [Novolog Flexpen] 5 unit SUBCUT AC 30 Days #3 pen 08/07/18 Insulin Glargine,Hum.rec.anlog [Lantus Insulin 100 Unit/mL] 18 unit SUBCUT QHS 30 Days #3 insuln.pen 08/07/18 History of Present Illness History of Present Illness: AYAH CELAYA is a 23 year old female past medical history of type 1 diabetes presenting to ED complaining of persistent productive cough accompanied with generalized body aches and pleuritic chest pain for the last 3 weeks. Stating that she was seen at the [facility] 3 weeks ago and was diagnosed wi th sinus infection and was given [id number] Zyrtec but she did not improve and continued to have worsening productive cough with generalized body aches. On 08/04/2018 she was admitted for DKA and anion gap of of 28, CBC mild leukocytosis with no bandemia. Patient was admited for DKA management unfortunately she eloped hospital without finishing her treatment. She was started on Zithromax at that time as well for bronchitis which she only got 1 dose of. Since she has left she has had continued high glucose readings, body aching, and cough. She is having same symptoms like when she was admitted previously. She is PO tolerant and having normal bowel and bladder movements. Denies any headache, fever, neck pain, changes in vision/speech/mentation/hearing, sore throat, chest pain, palpitations, syncope, shortness of breath, wheeze, dyspnea, abdominal pain, nausea/vomiting/diarrhea, urinary retention, dysuria, hematuria. Hospital Course Hospital Course: (1) Diabetic keto-acidosis Started on DKA protocol. AG closed , switched to SC insulin and pt was discharged to follow up at the [facility] on Tuesday. (2) Bronchitis Improved. Started on on azithromycin to complete 4 days. Physical Exam Vital Signs: Temp Pulse Resp BP Pulse Ox 98.1 F 110 H 15 136/96 H 100 08/07/18 17:59 08/07/18 16:48 08/07/18 18:00 08/07/18 18:00 08/07/18 18:00 General appearance: PRESENT: no acute distress, well-developed, well-nourished Head exam: PRESENT: atraumatic, normocephalic Eye exam: PRESENT: conjunctiva pink, EOMI, PERRLA. ABSENT: scleral icterus Ear exam: PRESENT: normal external ear exam Mouth exam: PRESENT: moist, tongue midline Neck exam: ABSENT: carotid bruit, JVD, lymphadenopathy, thyromegaly Respiratory exam: PRESENT: clear to auscultation nahed. ABSENT: rales, rhonchi, wheezes Cardiovascular exam: PRESENT: RRR. ABSENT: diastolic murmur, rubs, systolic murmur Pulses: PRESENT: normal dorsalis pedis pul Vascular exam: PRESENT: normal capillary refill GI/Abdominal exam: PRESENT: normal bowel sounds, soft. ABSENT: distended, guarding, mass, organolmegaly, rebound, tenderness Rectal exam: PRESENT: deferred Extremities exam: PRESENT: full ROM. ABSENT: calf tenderness, clubbing, pedal e ki Neurological exam: PRESENT: alert, awake, oriented to person, oriented to place, oriented to time, oriented to situation, CN II-XII grossly intact. ABSENT: motor sensory deficit Psychiatric exam: PRESENT: appropriate affect, normal mood. ABSENT: homicidal ideation, suicidal ideation Skin exam: PRESENT: dry, intact, warm. ABSENT: cyanosis, rash Results Laboratory Results: 08/07/18 06:19 08/07/18 12:07 Impressions: Chest X-Ray 08/06/18 14:00 IMPRESSION: NO ACUTE RADIOGRAPHIC FINDING IN THE CHEST. Qualifiers - * PATIENT BEING DISCHARGED WITH ANY OF THE FOLLOWING DIAGNOSIS: No VTE patient discharged on overlapping Therapy?: Yes
== END 2018-08-07 18:21 | disposition home or self-care (01) | DRG 639 ==
LOC: ER 12:56 → EH 15:17
PROVIDERS: ADMIT Family Medicine; ATTEND Family Medicine
DX: E10.10 Type 1 diabetes mellitus with ketoacidosis without coma (principal); Z79.4 Long term (current) use of insulin; J40 Bronchitis, not specified as acute or chronic; F31.9 Bipolar disorder, unspecified; Z79.899 Other long term (current) drug therapy; F17.200 Nicotine dependence, unspecified, uncomplicated; Z88.8 Allergy status to other drugs, medicaments and biological substances
CPT/HCPCS: 36415; 71045; 80048; 80053; 81001; 81025; 82803; 82962; 83735; 85025; 96360; 96361; 99291; J1644; J1815; J3480; J3490; J7030

== ENCOUNTER 2018-08-20 12:15 | Observation (INO) | payer SELFPAY ==
[2018-08-20] MEDS ORDERED: NORMAL SALINE 1000 ML 1,000 ML IV ONE ×2 (12:37→12:38)
[2018-08-20 13:28] LABS: VENOUS BLOOD HCO3 8.5 mmol/L (20-32); VENOUS BLOOD PCO2 21.1 mmHg (35-63); VENOUS BLOOD PH 7.22 (7.30-7.42)
--- NOTE | 2018-08-20 13:29 | RADIOLOGY REPORT (SQ) ---
EXAM DESCRIPTION: CHEST SINGLE VIEW COMPLETED DATE/TIME: 08/20/2018 1:12 pm REASON FOR STUDY: shortness of breath COMPARISON: 08/06/2018 TECHNIQUE: Single frontal radiographic view of the chest acquired. NUMBER OF VIEWS: One view. LIMITATIONS: None. FINDINGS: LUNGS AND PLEURA: No pneumothorax. No consolidation or pleural effusion. MEDIASTINUM AND HILAR STRUCTURES: Stable. HEART AND VASCULAR STRUCTURES: Stable. BONES: No acute findings. HARDWARE: None in the chest. OTHER: No other significant finding. IMPRESSION: NO ACUTE FINDINGS. TECHNICAL DOCUMENTATION: JOB ID: [id number] [id number] [employer]- All Rights Reserved Reading location - IP/workstation name: [email or web address]
[2018-08-20 13:33] LABS: ABSOLUTE BASOPHILS # (AUTO) 0.1 10^3/uL (0.0-0.2); ABSOLUTE LYMPHOCYTES (AUTO) 1.3 10^3/uL (0.5-4.7); ABSOLUTE MONOCYTES (AUTO) 0.5 10^3/uL (0.1-1.4); ABSOLUTE NEUT (AUTO) 6.5 10^3/uL (1.7-8.2); BASOPHILS % (AUTO) 0.6 % (0-2); EOSINOPHILS % (AUTO) 0.5 % (0-6); HEMATOCRIT 41.2 % (36.0-47.0); HEMOGLOBIN 13.9 g/dL (12.0-15.5); LYMPHOCYTES % (AUTO) 15.9 % (13-45); MEAN CORPUSCULAR HEMOGLOBIN 33.8 pg (27.0-33.4); MEAN CORPUSCULAR HGB CONC 33.7 g/dL (32.0-36.0); MEAN CORPUSCULAR VOLUME 100 fl (80-97); MONOCYTES % (AUTO) 5.7 % (3-13); PLATELET COUNT 405 10^3/uL (150-450); RED BLOOD COUNT 4.11 10^6/uL (3.72-5.28); RED CELL DISTRIBUTION WIDTH 14.2 % (11.5-14.0); SEGMENTED NEUTROPHILS % (AUTO) 77.3 % (42-78); TOTAL CELLS COUNTED % (AUTO) 100 %; WHITE BLOOD COUNT 8.5 10^3/uL (4.0-10.5)
[2018-08-20 13:43] LABS: APPEARANCE,URINE SLIGHTLY-CLOUDY; BILIRUBIN,URINE NEGATIVE (NEGATIVE); COLOR,URINE STRAW; GLUCOSE, URINE >=500 mg/dL (NEGATIVE); KETONES,URINE 80 mg/dL (NEGATIVE); LEUKOCYTE ESTERASE,URINE LARGE (NEGATIVE); NITRITE,URINE NEGATIVE (NEGATIVE); PROTEIN,URINE NEGATIVE (NEGATIVE); URINE SPECIFIC GRAVITY 1.021; UROBILINOGEN,URINE NEGATIVE mg/dL (<2.0)
[2018-08-20 13:46] LABS: ALANINE AMINOTRANSFERASE 60 U/L (9-52); ALBUMIN 4.6 g/dL (3.5-5.0); ALKALINE PHOSPHATASE 90 U/L (38-126); ASPARTATE AMINO TRANSFERASE 140 U/L (14-36); BILIRUBIN,DIRECT 0.5 mg/dL (0.0-0.4); BILIRUBIN,TOTAL 0.8 mg/dL (0.2-1.3); BLOOD UREA NITROGEN 10 mg/dL (7-20); CALCIUM 9.7 mg/dL (8.4-10.2); CARBON DIOXIDE 11 mmol/L (22-30); CHLORIDE 99 mmol/L (98-107); POTASSIUM 4.1 mmol/L (3.6-5.0); SODIUM 138.2 mmol/L (137-145); TOTAL PROTEIN 7.3 g/dL (6.3-8.2)
[2018-08-20 13:54] LABS: ANION GAP 28 (5-19); GLUCOSE 403 mg/dL (75-110)
[2018-08-20] MEDS ORDERED: GLUCAGON,HUMAN RECOMB 1 MG INJ IM PRN ×3 (14:00→15:43)
[2018-08-20] MEDS ORDERED: DEXTROSE 40% GEL 15 GM TUBE PO PRN ×6 (14:00→15:43)
[2018-08-20] MEDS ORDERED: NORMAL SALINE 100 ML with INSULIN REGULAR, HUMAN 100 UNIT IV PRN ×4 (14:00→15:25)
[2018-08-20] MEDS ORDERED: DEXTROSE 50%-WATER 25 GM/50 ML DISP.SYRIN IV PRN ×6 (14:00→15:43)
--- NOTE | 2018-08-20 14:12 | ER Document Report ---
ED General - General Chief Complaint: High Blood Sugar Stated Complaint: ELEVATED BLOOD SUGAR, BODY PAIN Time Seen by Provider: 08/20/18 12:37 Notes: Patient is a 23-year-old female with type 1 diabetes mellitus that presents to the emergency department for chief complaint of nausea, vomiting and abdominal pain. Patient states she has not been feeling well the last several days, and her blood glucose levels have been reading high over the past 3 days. She has had cough, congestion, nausea and vomiting, she only had one episode of vomiting today. She states she was around a friend that had the flu and is concerned that that is possible for her as well. She also frequently goes into DKA, she has not been as compliant with her insulin most recently either. She is been admitted several times for DKA and has been leaving AMA at times as well. She denies any any fevers, chills, night sweats, chest pain, shortness of breath or difficulty breathing, she denies having any dysuria or hematuria, but does admit to having urinary frequency. Past Medical History: Type 1 diabetes mellitus, migraines Past Surgical History: Pilonidal cyst removal Social History: Admits to smoking cigarettes, and rare alcohol use, denies illicit drug use. Family History: Reviewed and noncontributory for presenting illness Allergies: Reviewed, see documented allergy list. REVIEW OF SYSTEMS: Other than noted above, the 12 point review of systems was reviewed with the patient and were negative, all pertinent findings are included in the HPI. PHYSICAL EXAMINATION: Vital signs reviewed, nursing noted reviewed. GENERAL: Ill-appearing female, but in no immediate or acute distress HEAD: Atraumatic, normocephalic. EYES: Eyes appear normal, extraocular movements intact, sclera anicteric, conjunctiva are normal. ENT: nares patent, oropharynx clear without exudates. Moist mucous membranes. NECK: Normal range of motion, supple without lymphadenopathy LUNGS: Breath sounds clear to auscultation bilaterally and equal. No wheezes rales or rhonchi. HEART: Heart rate tachycardic, regular rhythm ABDOMEN: Soft, nontender, normoactive bowel sounds. No rebound, guarding, or rigidity. No masses appreciated. EXTREMITIES: Nontender, good range of motion, no pitting or edema. NEUROLOGICAL: No focal neurological deficits. Moves all extremities spontaneously Motor and sensory grossly intact on exam. PSYCH: Normal mood, normal affect. SKIN: Warm, Dry, normal turgor, no rashes or lesions noted on exposed skin TRAVEL OUTSIDE OF THE [place] IN LAST 30 DAYS: No - Related Data Allergies/Adverse Reactions: tramadol Allergy (Verified 08/20/18 12:16) Past Medical History - Social History Smoking Status: Current Every Day Smoker Chew tobacco use (# tins/day): No Frequency of alcohol use: Rare Drug Abuse: None Family History: Reviewed & Not Pertinent Patient has suicidal ideation: No Patient has homicidal ideation: No - Past Medical History Cardiac Medical History: Denies: Hx Atrial Fibrillation, Hx Congestive Heart Failure, Hx Heart Attack, Hx Hypercholesterolemia, Hx Hypertension Pulmonary Medical History: Denies: Hx Asthma, Hx Bronchitis, Hx COPD, Hx Pneumonia, Hx Tuberculosis Neurological Medical History: Reports: Hx Migraine. Denies: Hx Seizures Endocrine Medical History: Reports: Hx Diabetes Mellitus Type 1, Hx Diabetes Mellitus Type 2 Renal/ Medical History: Denies: Hx End Stage Renal Disease, Hx Kidney Stones, Hx Peritoneal Dialysis GI Medical History: Denies: Hx Gastroesophageal Reflux Disease, Hx Hiatal Hernia, Hx Ulcer Musculoskeletal Medical History: Denies Hx Arthritis Psychiatric Medical History: Reports: Hx Bipolar Disorder, Hx Depression Denies: Hx Attention Deficit Hyperactivity Disorder, Hx Schizophrenia - Immunizations Hx Diphtheria, Pertussis, Tetanus Vaccination: Yes Physical Exam - Vital signs Vitals: Temp 97.8 F 08/20/18 12:18 Course - Re-evaluation Re-evalutation: Patient seen and examined vital signs reviewed. Laboratory data and imaging were ordered as appropriate for the patient's presenting symptoms and complaint, with consideration of any critical or life threatening conditions that may be associated with their obtained history and exam as noted above. Patient was treated with IV fluid bolusing and resuscitation, and started on insulin infusion Results were reviewed when available and demonstrated anion gap of 28, consistent with diabetic ketoacidosis, her blood glucose was greater than 400, patient's UA was positive for leukocyte esterase, bacteria and white blood cells, will treat for urinary tract infection as well with a dose of IV Rocephin 1 g. The patient was re-evaluated and was improving symptomatically, heart rate was coming down Evaluation was most consistent with diabetic ketoacidosis, UTI, hyperglycemia Results were discussed with the patient at this point after careful consideration I feel that that patient should be admitted to the hospital. This was discussed with the patient that it is in the best interest for their care to be admitted for further evaluation and management. Patient agreed with this plan of care. A call was placed to the admitted physician, Dr. Dr. Munoz who graciously accepted the patient onto their service. *Note is created using voice recognition software and may contain spelling, syntax or grammatical errors. Laboratory 08/20/18 08/20/18 08/20/18 12:40 12:40 12:40 WBC 8.5 RBC 4.11 Hgb 13.9 Hct 41.2 MCV 100 H MCH 33.8 H MCHC 33.7 RDW 14.2 H Plt Count 405 Seg Neutrophils % 77.3 Lymphocytes % 15.9 Monocytes % 5.7 Eosinophils % 0.5 Basophils % 0.6 Absolute Neutrophils 6.5 Absolute Lymphocytes 1.3 Absolute Monocytes 0.5 Absolute Eosinophils 0.0 Absolute Basophils 0.1 VBG pH 7.22 L VBG pCO2 21.1 L VBG HCO3 8.5 L VBG Base Excess -17.0 Sodium 138.2 Potassium 4.1 Chloride 99 Carbon Dioxide 11 L Anion Gap 28 H BUN 10 Creatinine 0.91 Est GFR ( Amer) > 60 Est GFR (Non-Af Amer) > 60 Glucose 403 H* Lactic Acid Calcium 9.7 Total Bilirubin 0.8 Direct Bilirubin 0.5 H Neonat Total Bilirubin Not Reportable Neonat Direct Bilirubin Not Reportable Neonat Indirect Bili Not Reportable AST 140 H ALT 60 H Alkaline Phosphatase 90 Total Protein 7.3 Albumin 4.6 Urine Color Urine Appearance Urine pH Ur Specific Post Urine Protein Urine Glucose (UA) Urine Ketones Urine Blood Urine Nitrite Urine Bilirubin Urine Urobilinogen Ur Leukocyte Esterase Urine WBC (Auto) Urine RBC (Auto) Urine Bacteria (Auto) Squamous Epi Cells Auto Urine Mucus (Auto) Urine Ascorbic Acid 08/20/18 08/20/18 13:14 13:14 WBC RBC Hgb Hct MCV MCH MCHC RDW Plt Count Seg Neutrophils % Lymphocytes % Monocytes % Eosinophils % Basophils % Absolute Neutrophils Absolute Lymphocytes Absolute Monocytes Absolute Eosinophils Absolute Basophils VBG pH VBG pCO2 VBG HCO3 VBG Base Excess Sodium Potassium Chloride Carbon Dioxide Anion Gap BUN Creatinine Est GFR ( Amer) Est GFR (Non-Af Amer) Glucose Lactic Acid 10.1 H Calcium Total Bilirubin Direct Bilirubin Neonat Total Bilirubin Neonat Direct Bilirubin Neonat Indirect Bili AST ALT Alkaline Phosphatase Total Protein Albumin Urine Color STRAW Urine Appearance SLIGHTLY-CLOUDY Urine pH 5.0 Ur Specific [place] 1.021 Urine Protein NEGATIVE Urine Glucose (UA) >=500 H Urine Ketones 80 H Urine Blood SMALL H Urine Nitrite NEGATIVE Urine Bilirubin NEGATIVE Urine Urobilinogen NEGATIVE Ur Leukocyte Esterase LARGE H Urine WBC (Auto) 13 Urine RBC (Auto) 5 Urine Bacteria (Auto) TRACE Squamous Epi Cells Auto 4 Urine Mucus (Auto) OCC Urine Ascorbic Acid NEGATIVE Chest X-Ray 08/20/18 12:38 IMPRESSION: NO ACUTE FINDINGS. - Vital Signs Vital signs: Temp Pulse Resp BP Pulse Ox 97.8 F 110 H 20 120/99 H 100 08/20/18 12:26 08/20/18 14:33 08/20/18 14:01 08/20/18 14:33 08/20/18 14:01 - Laboratory Result Diagrams: 08/20/18 12:40 08/20/18 12:40 Laboratory results interpreted by me: 08/20/18 08/20/18 08/20/18 12:40 12:40 12:40 MCV 100 H MCH 33.8 H RDW 14.2 H VBG pH 7.22 L VBG pCO2 21.1 L VBG HCO3 8.5 L Carbon Dioxide 11 L Anion Gap 28 H Glucose 403 H* Lactic Acid Direct Bilirubin 0.5 H AST 140 H ALT 60 H Urine Glucose (UA) Urine Ketones Urine Blood Ur Leukocyte Esterase 08/20/18 08/20/18 13:14 13:14 MCV MCH RDW VBG pH VBG pCO2 VBG HCO3 Carbon Dioxide Anion Gap Glucose Lactic Acid 10.1 H Direct Bilirubin AST ALT Urine Glucose (UA) >=500 H Urine Ketones 80 H Urine Blood SMALL H Ur Leukocyte Esterase LARGE H - EKG Interpretation by Me Additional EKG results interpreted by me: EKG demonstrates sinus tachycardia with a ventricular rate of 103 bpm, borderline right axis deviation, normal intervals, no evidence of acute ischemia in this EKG, compared to prior EKG from 11/10/2016, no significant change with exception of tachycardia on today's EKG. Critical Care Note - Critical Care Note Total time excluding time spent on procedures (mins): 35 Comments: Critical care time 35 minutes exclusive from separate billable procedures for a patient requiring complex medical decision making, and high potential for c linical deterioration. In a patient with diabetic ketoacidosis, requiring admission to the hospital, close monitoring, and IV insulin infusion. Time spent obtaining history from patient or surrogate, discussions with consultants, development of treatment plan with patient or surrogate, evaluation of patient's response to treatment, examination of patient, ordering and performing treatments and interventions, ordering and review of laboratory studies, re- evaluation of patient's condition, ordering and review of radiographic studies and review of old charts Discharge - Discharge Clinical Impression: Lactic acid acidosis DKA (diabetic ketoacidoses) Qualifiers: Diabetes mellitus type: type 1 Diabetes mellitus complication detail: without coma Qualified Code(s): E10.10 - Type 1 diabetes mellitus with ketoacidosis without coma UTI (urinary tract infection) Qualifiers: Urinary tract infection type: site unspecified Hematuria presence: without he maturia Qualified Code(s): N39.0 - Urinary tract infection, site not specified Disposition: ADMITTED INPATIENT Admitting Provider: Hospitalist - Dr. Munoz Unit Admitted: [facility]
[2018-08-20] MEDS ORDERED: INSULIN REG, HUMAN 100 UNIT/ML 3 ML VIAL (PYX) ONE (14:20)
[2018-08-20] MEDS ORDERED: ACETAMINOPHEN 325 MG TABLET PO PRN (15:20)
[2018-08-20] MEDS ORDERED: IPRATROPIUM/ALBUTEROL 0.5-2.5 MG/3 ML AMPUL NEB PRN (15:20)
[2018-08-20] MEDS ORDERED: ONDANSETRON HCL INJ/PF 4 MG/2 ML SDV IV PRN (15:23)
[2018-08-20] MEDS ORDERED: OXYCODONE-ACETAMINOPHEN 5-325 MG TABLET PO PRN (15:24)
[2018-08-20] MEDS ORDERED: POTASSI CL 20 MEQ/1/2NS 1L 20 MEQ/1,000 ML RTUINJ IV PRN (15:25)
[2018-08-20] MEDS ORDERED: CEFTRIAXONE 1 GM/D5W RTU 1 GM/50 ML RTUPB IV ONE (15:30)
--- NOTE | 2018-08-20 15:43 | PDOC H&P ---
History of Present Illness Admission Date/PCP: 08/20/18 14:15 History of Present Illness: AYAH CELAYA is a 23 year old female with type 1 diabetes mellitus that presents to the emergency department for chief complaint of nausea, anorexia, odynophagia, generalized fatigue, dysuria for the last 6 days. She stating that she may have caught the flu because everybody in the family has it. Also also has noticed that she is having high blood glucose reading at home monitoring. S he stating that she has been compliant with her insulin regimen. Her cough and congestion has improved since last admission. She is been admitted several times for DKA and has been leaving AMA at times as well. She denies any any fevers, chills, night sweats, chest pain, shortness of breath or difficulty breathing, Past Medical History Cardiac Medical History: Denies: Atrial Fibrillation, Congestive Heart Failure, Myocardial Infarction, Hyperlipidema, Hypertension Pulmonary Medical History: Denies: Asthma, Bronchitis, Chronic Obstructive Pulmonary Disease (COPD), Pneumonia, Tuberculosis Neurological Medical History: Reports: Migraine Denies: Seizures Endocrine Medical History: Reports: Diabetes Mellitus Type 1, Diabetes Mellitus Type 2 Renal/ Medical History: Denies: End Stage Renal Disease GI Medical History: Denies: Gastroesophageal Reflux Disease, Hiatal Hernia Musculoskeltal Medical History: Denies: Arthritis Psychiatric Medical History: Reports: Bipolar Disorder, Depression Denies: Attention Deficit Hyperactivity Disorder Hematology: Denies: Anemia, Sickle Cell Disease Social History Smoking Status: Current Every Day Smoker Family History Family History: Reviewed & Not Pertinent Parental Family History Reviewed: Yes Children Family History Reviewed: Yes Sibling(s) Family History Reviewed.: Yes Medication/Allergy Home Medications: Insulin Aspart [Novolog Flexpen] 0 unit SQ .SLIDING SCALE 11/10/16 Insulin Glargine,Hum.rec.anlog [Lantus Insulin 100 Unit/mL] 18 unit SUBCUT QHS 30 Days #3 insuln.pen 08/07/18 Allergies/Adverse Reactions: tramadol Allergy (Verified 08/20/18 12:16) Review of Systems Review of Systems: Per HPI Constitutional: PRESENT: anorexia, fatigue, weakness Cardiovascular: ABSENT: chest pain, dyspnea on exertion, edema, orthropnea, palpitations Respiratory: ABSENT: cough, hemoptysis Genitourinary: PRESENT: dysuria. ABSENT: hematuria Musculoskeletal: ABSENT: joint swelling Integumentary: ABSENT: rash, wounds Neurological: ABSENT: abnormal gait, abnormal speech, confusion, dizziness, focal weakness, syncope Psychiatric: ABSENT: anxiety, depression, homidical ideation, suicidal ideation Hematologic/Lymphatic: ABSENT: easy bleeding, easy bruising Physical Exam Vital Signs: Temp Pulse Resp BP Pulse Ox 97.8 F 110 H 20 120/99 H 100 08/20/18 12:26 08/20/18 14:33 08/20/18 14:01 08/20/18 14:33 08/20/18 14:01 Intake & Output 08/19/18 08/20/18 08/21/18 06:59 06:59 06:59 Intake Total 2000 Balance 2000 Weight 61.4 kg General appearance: PRESENT: no acute distress, well-developed, well-nourished Head exam: PRESENT: atraumatic, normocephalic Eye exam: PRESENT: conjunctiva pink, EOMI, PERRLA. ABSENT: scleral icterus Mouth exam: PRESENT: moist, tongue midline Throat exam: ABSENT: post pharyngeal erythema, tonsillar erythema, tonsillar exudate, tonsillogmegaly, other Respiratory exam: PRESENT: clear to auscultation nahed. ABSENT: rales, rhonchi, wheezes Cardiovascular exam: PRESENT: RRR. ABSENT: diastolic murmur, rubs, systolic murmur GI/Abdominal exam: PRESENT: normal bowel sounds, soft. ABSENT: distended, guarding, mass, organolmegaly, rebound, tenderness Extremities exam: PRESENT: full ROM. ABSENT: calf tenderness, clubbing, pedal edema Neurological exam: PRESENT: alert, awake, oriented to person, oriented to place, oriented to time, oriented to situation, CN II-XII grossly intact. ABSENT: motor sensory deficit Skin exam: PRESENT: dry, intact, warm. ABSENT: cyanosis, rash Results Laboratory Results: 08/20/18 12:40 08/20/18 12:40 08/20/18 08/20/18 08/20/18 12:40 12:40 12:40 WBC 8.5 RBC 4.11 Hgb 13.9 Hct 41.2 MCV 100 H MCH 33.8 H MCHC 33.7 RDW 14.2 H Plt Count 405 Seg Neutrophils % 77.3 Lymphocytes % 15.9 Monocytes % 5.7 Eosinophils % 0.5 Basophils % 0.6 Absolute Neutrophils 6.5 Absolute Lymphocytes 1.3 Absolute Monocytes 0.5 Absolute Eosinophils 0.0 Absolute Basophils 0.1 VBG pH 7.22 L VBG pCO2 21.1 L VBG HCO3 8.5 L VBG Base Excess -17.0 Sodium 138.2 Potassium 4.1 Chloride 99 Carbon Dioxide 11 L Anion Gap 28 H BUN 10 Creatinine 0.91 Est GFR ( Amer) > 60 Est GFR (Non-Af Amer) > 60 Glucose 403 H* Lactic Acid Calcium 9.7 Total Bilirubin 0.8 AST 140 H ALT 60 H Alkaline Phosphatase 90 Total Protein 7.3 Albumin 4.6 Urine Color Urine Appearance Urine pH Ur Specific [place] Urine Protein Urine Glucose (UA) Urine Ketones Urine Blood Urine Nitrite Ur Leukocyte Esterase Urine WBC (Auto) Urine RBC (Auto) 08/20/18 08/20/18 13:14 13:14 WBC RBC Hgb Hct MCV MCH MCHC RDW Plt Count Seg Neutrophils % Lymphocytes % Monocytes % Eosinophils % Basophils % Absolute Neutrophils Absolute Lymphocytes Absolute Monocytes Absolute Eosinophils Absolute Basophils VBG pH VBG pCO2 VBG HCO3 VBG Base Excess Sodium Potassium Chloride Carbon Dioxide Anion Gap BUN Creatinine Est GFR ( Amer) Est GFR (Non-Af Amer) Glucose Lactic Acid 10.1 H Calcium Total Bilirubin AST ALT Alkaline Phosphatase Total Protein Albumin Urine Color STRAW Urine Appearance SLIGHTLY-CLOUDY Urine pH 5.0 Ur Specific [place] 1.021 Urine Protein NEGATIVE Urine Glucose (UA) >=500 H Urine Ketones 80 H Urine Blood SMALL H Urine Nitrite NEGATIVE Ur Leukocyte Esterase LARGE H Urine WBC (Auto) 13 Urine RBC (Auto) 5 Impressions: Chest X-Ray 08/20/18 12:38 IMPRESSION: NO ACUTE FINDINGS. Assessment & Plan - Diagnosis (1) Diabetic keto-acidosis Qualifiers: Diabetes mellitus type: type 1 Diabetes mellitus complication detail: without coma Qualified Code(s): E10.10 - Type 1 diabetes mellitus with ketoacidosis without coma Is this a current diagnosis for this admission?: Yes Plan: Start on DKA protocol. Switch to subcutaneous insulin once anion gap is close. BMP every 4 hours. Replace electrolytes as needed. (2) Odynophagia Is this a current diagnosis for this admission?: Yes Plan: Likely candidal esophagitis. Patient endorses recurrent history of oral candidiasis. At high risk for candidiasis due to underlying uncontrolled diabetes. Unknown HIV status. Will check for HIV Unfortunately started switch and swallow unavailable due to nationwide shortage at this point. Will use clotrimazole instead. Follow-up with PCP. It does not affect the patient could be considered for fluconazole oral therapy. (3) UTI (urinary tract infection) Qualifiers: Urinary tract infection type: site unspecified Hematuria presence: without hematuria Qualified Code(s): N39.0 - Urinary tract infection, site not specified Is this a current diagnosis for this admission?: Yes Plan: Likely E. coli. Patient was given 1 dose of ceftriaxone in ED. Follow-up urine culture. Continue empiric antibiotics.
[2018-08-20] MEDS ORDERED: POTASSI CL 20 MEQ/D5-1/2NS 1L 1,000 ML IV ONE (15:50)
[2018-08-20] MEDS: POTASSI CL 20 MEQ/D5-1/2NS 1L 1,000 ML IV PRN (17:00)
[2018-08-20] MEDS ORDERED: LEVOFLOXACIN 500 MG TABLET PO SCH (18:00)
[2018-08-20] MEDS ORDERED: NYSTATIN 500000 UNIT/5 ML UDCUP PO SCH (18:00)
[2018-08-20] MEDS: LANSOPRAZOLE 30 MG TAB.RAP.DR PO SCH (18:18)
[2018-08-20] MEDS: GUAIFENESIN 600 MG TABLET.SA PO SCH (21:29)
[2018-08-20] MEDS ORDERED: CLOTRIMAZOLE 10 MG TROCHE ONE (21:31)
[2018-08-20] MEDS: CLOTRIMAZOLE 10 MG TROCHE PO SCH ×2 (21:41→22:18)
--- NOTE | 2018-08-20 23:58 | EKG REPORT ---
SEVERITY:- OTHERWISE NORMAL ECG - SINUS TACHYCARDIA BORDERLINE RIGHT AXIS DEVIATION : Confirmed by: Guillaume Valentine 20-Aug-2018 23:57:14
[2018-08-21] MEDS: POTASSI CL 20 MEQ/D5-1/2NS 1L 1,000 ML IV PRN (05:13)
[2018-08-21] MEDS: LANSOPRAZOLE 30 MG TAB.RAP.DR PO SCH (05:16)
[2018-08-21 05:55] LABS: ANION GAP 10 (5-19); BLOOD UREA NITROGEN 12 mg/dL (7-20); CALCIUM 8.5 mg/dL (8.4-10.2); CARBON DIOXIDE 20 mmol/L (22-30); CHLORIDE 107 mmol/L (98-107); POTASSIUM 4.9 mmol/L (3.6-5.0); SODIUM 136.6 mmol/L (137-145)
[2018-08-21] MEDS: CLOTRIMAZOLE 10 MG TROCHE PO SCH ×2 (06:02→10:05)
[2018-08-21 06:07] LABS: GLUCOSE 403 mg/dL (75-110)
[2018-08-21] MEDS ORDERED: INSULIN GLARGINE,HUM.REC.ANLOG 1,000 UNIT/10 ML UNIT SUBCUT ONE (09:00)
[2018-08-21] MEDS: GUAIFENESIN 600 MG TABLET.SA PO SCH (09:05)
[2018-08-21] MEDS ORDERED: ENOXAPARIN SODIUM INJ 40 MG/0.4 ML DISP.SYRIN SUBCUT SCH (10:00)
[2018-08-21 11:17] LABS: ANION GAP 14 (5-19); BLOOD UREA NITROGEN 9 mg/dL (7-20); CALCIUM 9.1 mg/dL (8.4-10.2); CARBON DIOXIDE 19 mmol/L (22-30); CHLORIDE 105 mmol/L (98-107); GLUCOSE 127 mg/dL (75-110); SODIUM 138.2 mmol/L (137-145)
[2018-08-21 11:22] LABS: POTASSIUM 3.7 mmol/L (3.6-5.0)
[2018-08-21 12:04] VITALS: BP 150/83
--- NOTE | 2018-08-21 12:46 | PDOC DISCHARGE SUMMARY ---
General - Admit/Disc Date/PCP Admission Date/Primary Care Provider: 08/20/18 14:15 Discharge Date: 08/21/18 - Discharge Diagnosis (1) Diabetic keto-acidosis Is this a current diagnosis for this admission?: Yes (2) Odynophagia Is this a current diagnosis for this admission?: Yes (3) UTI (urinary tract infection) Is this a current diagnosis for this admission?: Yes - Additional Information Resuscitation Status: Full Code Discharge Diet: As Tolerated Discharge Activity: Activity As Tolerated Prescriptions: Clotrimazole [Mycelex 10 mg Carlene] 10 mg PO 5XDA 7 Days #35 carlene Levofloxacin [Levaquin 500 mg Tablet] 500 mg PO QPM 3 Days #3 tablet Home Medications: Insulin Aspart [Novolog Flexpen] 0 unit SQ .SLIDING SCALE 11/10/16 Insulin Glargine,Hum.rec.anlog [Lantus Insulin 100 Unit/mL] 18 unit SUBCUT QHS 30 Days #3 insuln.pen 08/07/18 Clotrimazole [Mycelex 10 mg Carlene] 10 mg PO 5XDA 7 Days #35 carlene 08/21/18 Levofloxacin [Levaquin 500 mg Tablet] 500 mg PO QPM 3 Days #3 tablet 08/21/18 History of Present Illness History of Present Illness: AYAH CELAYA is a 23 year old female with type 1 diabetes mellitus that presents to the emergency department for chief complaint of nausea, anorexia, odynophagia, generalized fatigue, dysuria for the last 6 days. She stating that she may have caught the flu because everybody in the family has it. Also also has noticed that she is having high blood glucose reading at home monitoring. She stating that she has been compliant with her insulin regimen. Her cough and congestion has improved since last admission. She is been admitted several times for DKA and has been leaving AMA at times as well. She denies any any fevers, chills, night sweats, chest pain, shortness of breath or difficulty breathing, Hospital Course Hospital Course: (1) Diabetic keto-acidosis Start on DKA protocol. And switched to switch to subcutaneous insulin once anion gap closed. BMP every 4 hours. Patient was restarted on her home insulin regimen and a follow-up appointment with her PCP Dr. Mehta on 08/28/2018. (2) Odynophagia Likely candidal esophagitis. Patient endorses recurrent history of oral candidiasis. At high risk for candidiasis due to underlying uncontrolled diabetes. HIV negative. Unfortunately started switch and swallow unavailable due to nationwide shortage at this point. Started on clotrimazole adjust 5 times a day for 7 days. Follow-up with PCP. It does not affect the patient could be considered for fluconazole oral therapy. (3) UTI (urinary tract infection) Likely E. coli. Given 1 dose of ceftriaxone IV in ED switch to p.o. levo floxacin to complete 4 days. Physical Exam Vital Signs: Temp Pulse Resp BP Pulse Ox 98.8 F 108 H 16 150/83 H 97 08/21/18 11:48 08/21/18 11:48 08/21/18 11:48 08/21/18 11:48 08/21/18 11:48 Intake & Output 08/20/18 08/21/18 08/22/18 06:59 06:59 06:59 Intake Total 3052 427 Balance 3052 427 Weight 64.9 kg General appearance: PRESENT: no acute distress, well-developed, well-nourished Head exam: PRESENT: atraumatic, normocephalic Eye exam: PRESENT: conjunctiva pink, EOMI, PERRLA. ABSENT: scleral icterus Ear exam: PRESENT: normal external ear exam Mouth exam: PRESENT: moist, tongue midline Neck exam: ABSENT: carotid bruit, JVD, lymphadenopathy, thyromegaly Respiratory exam: PRESENT: clear to auscultation nahed. ABSENT: rales, rhonchi, wheezes Cardiovascular exam: PRESENT: RRR. ABSENT: diastolic murmur, rubs, systolic murmur Pulses: PRESENT: normal dorsalis pedis pul Vascular exam: PRESENT: normal capillary refill GI/Abdominal exam: PRESENT: normal bowel sounds, soft. ABSENT: distended, guarding, mass, organolmegaly, rebound, tenderness Rectal exam: PRESENT: deferred Extremities exam: PRESENT: full ROM. ABSENT: calf tenderness, clubbing, pedal edema Neurological exam: PRESENT: alert, awake, oriented to person, oriented to place, oriented to time, oriented to situation, CN II-XII grossly intact. ABSENT: motor sensory deficit Psychiatric exam: PRESENT: appropriate affect, normal mood. ABSENT: homicidal ideation, suicidal ideation Skin exam: PRESENT: dry, intact, warm. ABSENT: cyanosis, rash Results Laboratory Results: 08/20/18 12:40 08/21/18 10:36 08/20/18 08/20/18 08/20/18 12:40 12:40 12:40 WBC 8.5 RBC 4.11 Hgb 13.9 Hct 41.2 MCV 100 H MCH 33.8 H MCHC 33.7 RDW 14.2 H Plt Count 405 Seg Neutrophils % 77.3 Lymphocytes % 15.9 Monocytes % 5.7 Eosinophils % 0.5 Basophils % 0.6 Absolute Neutrophils 6.5 Absolute Lymphocytes 1.3 Absolute Monocytes 0.5 Absolute Eosinophils 0.0 Absolute Basophils 0.1 VBG pH 7.22 L VBG pCO2 21.1 L VBG HCO3 8.5 L VBG Base Excess -17.0 Sodium 138.2 Potassium 4.1 Chloride 99 Carbon Dioxide 11 L Anion Gap 28 H BUN 10 Creatinine 0.91 Est GFR ( Amer) > 60 Est GFR (Non-Af Amer) > 60 Glucose 403 H* Lactic Acid Calcium 9.7 Total Bilirubin 0.8 AST 140 H ALT 60 H Alkaline Phosphatase 90 Total Protein 7.3 Albumin 4.6 Urine Color Urine Appearance Urine pH Ur Specific [place] Urine Protein Urine Glucose (UA) Urine Ketones Urine Blood Urine Nitrite Ur Leukocyte Esterase Urine WBC (Auto) Urine RBC (Auto) 08/20/18 08/20/18 08/20/18 13:14 13:14 17:05 WBC RBC Hgb Hct MCV MCH MCHC RDW Plt Count Seg Neutrophils % Lymphocytes % Monocytes % Eosinophils % Basophils % Absolute Neutrophils Absolute Lymphocytes Absolute Monocytes Absolute Eosinophils Absolute Basophils VBG pH VBG pCO2 VBG HCO3 VBG Base Excess Sodium Potassium Chloride Carbon Dioxide Anion Gap BUN Creatinine Est GFR ( Amer) Est GFR (Non-Af Amer) Glucose Lactic Acid 10.1 H 1.8 Calcium Total Bilirubin AST ALT Alkaline Phosphatase Total Protein Albumin Urine Color STRAW Urine Appearance SLIGHTLY-CLOUDY Urine pH 5.0 Ur Specific [place] 1.021 Urine Protein NEGATIVE Urine Glucose (UA) >=500 H Urine Ketones 80 H Urine Blood SMALL H Urine Nitrite NEGATIVE Ur Leukocyte Esterase LARGE H Urine WBC (Auto) 13 Urine RBC (Auto) 5 08/21/18 08/21/18 05:02 10:36 WBC RBC Hgb Hct MCV MCH MCHC RDW Plt Count Seg Neutrophils % Lymphocytes % Monocytes % Eosinophils % Basophils % Absolute Neutrophils Absolute Lymphocytes Absolute Monocytes Absolute Eosinophils Absolute Basophils VBG pH VBG pCO2 VBG HCO3 VBG Base Excess Sodium 136.6 L 138.2 Potassium 4.9 3.7 D Chloride 107 105 Carbon Dioxide 20 L 19 L Anion Gap 10 14 BUN 12 9 Creatinine 0.75 0.68 Est GFR ( Amer) > 60 > 60 Est GFR (Non-Af Amer) > 60 > 60 Glucose 403 H* 127 H Lactic Acid Calcium 8.5 9.1 Total Bilirubin AST ALT Alkaline Phosphatase Total Protein Albumin Urine Color Urine Appearance Urine pH Ur Specific [place] Urine Protein Urine Glucose (UA) Urine Ketones Urine Blood Urine Nitrite Ur Leukocyte Esterase Urine WBC (Auto) Urine RBC (Auto) 08/20/18 13:14 Clean Catch Midstream Urine Culture - Final Group B Beta Streptococcus Impressions: Chest X-Ray 08/20/18 12:38 IMPRESSION: NO ACUTE FINDINGS. Qualifiers - * PATIENT BEING DISCHARGED WITH ANY OF THE FOLLOWING DIAGNOSIS: No VTE patient discharged on overlapping Therapy?: Yes
== END 2018-08-21 13:00 | disposition home or self-care (01) ==
LOC: ER 12:15 → INTOOBSV 14:15 → EH 14:15 → 3S 19:20
PROVIDERS: ADMIT Internal Medicine; ATTEND Internal Medicine
DX: E10.10 Type 1 diabetes mellitus with ketoacidosis without coma (principal); R13.10 Dysphagia, unspecified; N39.0 Urinary tract infection, site not specified; R05 Cough; F17.210 Nicotine dependence, cigarettes, uncomplicated; R63.0 Anorexia; R00.0 Tachycardia, unspecified; Z79.899 Other long term (current) drug therapy; Z86.19 Personal history of other infectious and parasitic diseases
CPT/HCPCS: 93005; 99291; 96360; 36415 ×2; 87086; 82962 ×2; 84702; 85025; 87088; 80048; 80053; 81001; 86701; 82803; 83605; 71045; 93010; J1815 ×2; J3490 ×2; J1650; J3480 ×2; J7030; J0696; G0378

== ENCOUNTER 2018-08-26 04:17 | Inpatient (IN) | payer SELFPAY ==
[2018-08-26] MEDS ORDERED: NORMAL SALINE 1000 ML 1,000 ML IV ONE ×2 (04:34→04:42)
[2018-08-26] MEDS ORDERED: ONDANSETRON HCL INJ/PF 4 MG/2 ML SDV IV ONE (04:35)
[2018-08-26 05:02] LABS: VENOUS BLOOD BASE EXCESS -19.3 mmol/L; VENOUS BLOOD PH 7.2 (7.30-7.42)
[2018-08-26 05:05] LABS: VENOUS BLOOD PCO2 15.6 mmHg (35-63)
[2018-08-26 05:10] LABS: HEMATOCRIT 46.5 % (36.0-47.0); MEAN CORPUSCULAR HEMOGLOBIN 33.4 pg (27.0-33.4); MEAN CORPUSCULAR HGB CONC 32.4 g/dL (32.0-36.0); MEAN CORPUSCULAR VOLUME 103 fl (80-97); PLATELET COUNT 360 10^3/uL (150-450); RED CELL DISTRIBUTION WIDTH 14.6 % (11.5-14.0)
[2018-08-26] MEDS ORDERED: FENTANYL CITRATE INJ/PF 100 MCG/2 ML AMPUL IV ONE (05:27)
[2018-08-26 05:30] LABS: ABSOLUTE LYMPHOCYTES# (MANUAL) 0.6 10^3/uL (0.5-4.7); ABSOLUTE MONOCYTES # (MANUAL) 0.7 10^3/uL (0.1-1.4); ABSOLUTE NEUTROPHILS# (MANUAL) 5.7 10^3/uL (1.7-8.2); BASOPHILS % (MANUAL) 0 % (0-2); EOSINOPHILS % (MANUAL) 0 % (0-6); LYMPHOCYTES % (MANUAL) 9 % (13-45); MONOCYTES % (MANUAL) 10 % (3-13); PLATELET COMMENT ADEQUATE; RBC MORPHOLOGY COMMENT NORMO-CYTIC/CHROMIC; SEGMENTED NEUTROPHILS % (MAN) 81 % (42-78); TOTAL CELLS COUNTED 100
[2018-08-26 05:31] LABS: APPEARANCE,URINE CLEAR; BILIRUBIN,URINE NEGATIVE (NEGATIVE); COLOR,URINE STRAW; GLUCOSE, URINE >=500 mg/dL (NEGATIVE); KETONES,URINE 80 mg/dL (NEGATIVE); LEUKOCYTE ESTERASE,URINE NEGATIVE (NEGATIVE); NITRITE,URINE NEGATIVE (NEGATIVE); PROTEIN,URINE NEGATIVE (NEGATIVE); URINE SPECIFIC GRAVITY 1.021; UROBILINOGEN,URINE NEGATIVE mg/dL (<2.0)
[2018-08-26 05:42] LABS: ALANINE AMINOTRANSFERASE 110 U/L (9-52); ALBUMIN 4.4 g/dL (3.5-5.0); ALKALINE PHOSPHATASE 116 U/L (38-126); ASPARTATE AMINO TRANSFERASE 102 U/L (14-36); BILIRUBIN,DIRECT 0.3 mg/dL (0.0-0.4); BILIRUBIN,TOTAL 0.6 mg/dL (0.2-1.3); BLOOD UREA NITROGEN 15 mg/dL (7-20); CALCIUM 9.2 mg/dL (8.4-10.2); POTASSIUM 4.2 mmol/L (3.6-5.0); TOTAL PROTEIN 7.1 g/dL (6.3-8.2)
[2018-08-26 05:47] LABS: CHLORIDE 95 mmol/L (98-107); SODIUM 135.7 mmol/L (137-145)
[2018-08-26 06:01] LABS: ANION GAP 35 (5-19)
[2018-08-26 06:03] LABS: CARBON DIOXIDE 6 mmol/L (22-30); GLUCOSE 578 mg/dL (75-110)
[2018-08-26] MEDS ORDERED: GLUCAGON,HUMAN RECOMB 1 MG INJ IM PRN ×2 (06:11→14:22)
[2018-08-26] MEDS ORDERED: DEXTROSE 40% GEL 15 GM TUBE PO PRN ×6 (06:11→14:22)
[2018-08-26] MEDS ORDERED: NORMAL SALINE 100 ML with INSULIN REGULAR, HUMAN 100 UNIT IV PRN ×4 (06:11→08:09)
[2018-08-26] MEDS ORDERED: DEXTROSE 50%-WATER 25 GM/50 ML DISP.SYRIN IV PRN ×6 (06:11→14:22)
[2018-08-26] MEDS ORDERED: RINGERS SOLUTION,LACTATED 1,000 ML IV ONE (06:15)
[2018-08-26] MEDS ORDERED: INSULIN REG, HUMAN 100 UNIT/ML 3 ML VIAL (PYX) ONE (06:20)
--- NOTE | 2018-08-26 06:27 | ER Document Report ---
ED Blood Sugar Problem - General Chief Complaint: High Blood Sugar Stated Complaint: SUGAR LEVELS Time Seen by Provider: 08/26/18 04:33 Notes: Patient is a 23-year-old female presents to the emergency department for generalized nausea, vomiting, diarrhea for the last 24 hours. Patient states she took her at home blood sugar and it read high. States she did take 20 units of NovoLog prior to arrival to the emergency room. Patient states she has been taking her NovoLog and Lantus as prescribed. Patient has been admitted to this facility multiple times recently for DKA. Patient states she has generalized body pain more so in her lower back. Patient is denying any blood in her vomit or diarrhea Past medical history: Type I diabetic Medications: Lantus, NovoLog Allergies: Tramadol TRAVEL OUTSIDE OF THE [place] IN LAST 30 DAYS: No - Related Data Allergies/Adverse Reactions: tramadol Allergy (Verified 08/20/18 12:16) Past Medical History - General Information source: Patient - Social History Smoking Status: Current Every Day Smoker Family History: Reviewed & Not Pertinent Patient has suicidal ideation: No Patient has homicidal ideation: No - Past Medical History Cardiac Medical History: Denies: Hx Atrial Fibrillation, Hx Congestive Heart Failure, Hx Heart Attack, Hx Hypercholesterolemia, Hx Hypertension Pulmonary Medical History: Denies: Hx Asthma, Hx Bronchitis, Hx COPD, Hx Pneumonia, Hx Tuberculosis Neurological Medical History: Reports: Hx Migraine. Denies: Hx Seizures Endocrine Medical History: Reports: Hx Diabetes Mellitus Type 1, Hx Diabetes Me llitus Type 2 Renal/ Medical History: Denies: Hx End Stage Renal Disease, Hx Kidney Stones, Hx Peritoneal Dialysis GI Medical History: Denies: Hx Gastroesophageal Reflux Disease, Hx Hiatal Hernia, Hx Ulcer Musculoskeletal Medical History: Denies Hx Arthritis Psychiatric Medical History: Reports: Hx Bipolar Disorder, Hx Depression Denies: Hx Attention Deficit Hyperactivity Disorder, Hx Schizophrenia - Immunizations Hx Diphtheria, Pertussis, Tetanus Vaccination: Yes Review of Systems - Review of Systems Constitutional: Weakness. denies: Fever EENT: No symptoms reported Cardiovascular: No symptoms reported Respiratory: No symptoms reported Gastrointestinal: See HPI Genitourinary: denies: Burning, Dysuria Female Genitourinary: No symptoms reported Musculoskeletal: No symptoms reported Skin: No symptoms reported Hematologic/Lymphatic: No symptoms reported Neurological/Psychological: Anxiety, Weakness Physical Exam - Vital signs Vitals: Temp Pulse Resp BP Pulse Ox 99.4 F 133 H 26 H 140/84 H 99 08/26/18 04:23 08/26/18 04:23 08/26/18 04:23 08/26/18 04:23 08/26/18 04:23 - Notes Notes: GENERAL: Alert, tachycardic and tachypneic HEAD: Normocephalic, atraumatic. EYES: Pupils equal, round, and reactive to light. Extraocular movements intact. ENT: Oral mucosa dry, tongue midline. NECK: Full range of motion. Supple. Trachea midline. LUNGS: Clear to auscultation bilaterally, no wheezes, rales, or rhonchi. No respiratory distress. Tachypneic HEART: Regular rate and rhythm. No murmur ABDOMEN: Soft, non-tender. Non-distended. Bowel sounds present in all 4 quadrants. No McBurney's point tenderness, no Gross sign noted. EXTREMITIES: Moves all 4 extremities spontaneously. No edema, normal radial and dorsalis pedis pulses bilaterally. No cyanosis. BACK: no cervical, thoracic, lumbar midline tenderness. No saddle anesthesia, normal distal neurovascular exam. NEUROLOGICAL: Alert and oriented x3. Normal speech. cranial nerves II through XII grossly intact. PSYCH: Normal affect, normal mood. SKIN: Warm, dry, normal turgor. No rashes or lesions noted. Course - Re-evaluation Re-evalutation: 08/26/18 06:25 Patient's labs showed no signs of leukocytosis, no signs of anemia. Patient's initial blood sugar glucose was 578. With 2 L of IV fluids and the 20 units of NovoLog the patient took prior to arrival to the emergency room her sugar is now 275. Patient's pH is 7.20 with an anion gap of 35, potassium 4.2. Patient's urine shows no signs of infection but is positive for glucose and ketones. Patient was started on insulin drip and maintenance fluids, will call hospitalist for admission. 08/26/18 06:53 Discussed case with hospitalist Dr. Aquino who will admit the patient to the ICU. Patient's heart rate is 112, blood pressure 119/73, pulse ox 99% with no respiratory distress at this time respiratory rate of 18 - Vital Signs Vital signs: Temp Pulse Resp BP Pulse Ox 99.4 F 133 H 17 119/73 100 08/26/18 04:23 08/26/18 04:23 08/26/18 06:01 08/26/18 06:01 08/26/18 06:01 - Laboratory Result Diagrams: 08/26/18 04:45 08/26/18 04:45 Laboratory results interpreted by me: 08/26/18 08/26/18 08/26/18 04:45 04:45 04:45 MCV 103 H RDW 14.6 H Seg Neuts % (Manual) 81 H Lymphocytes % (Manual) 9 L VBG pH 7.20 L VBG pCO2 15.6 L* VBG HCO3 6.0 L Sodium 135.7 L Chloride 95 L Carbon Dioxide 6 L* Anion Gap 35 H Est GFR (Non-Af Amer) 55 L Glucose 578 H* POC Glucose AST 102 H ALT 110 H Urine Glucose (UA) Urine Ketones Urine Blood 08/26/18 08/26/18 05:14 05:46 MCV RDW Seg Neuts % (Manual) Lymphocytes % (Manual) VBG pH VBG pCO2 VBG HCO3 Sodium Chloride Carbon Dioxide Anion Gap Est GFR (Non-Af Amer) Glucose POC Glucose 275 H AST ALT Urine Glucose (UA) >=500 H Urine Ketones 80 H Urine Blood SMALL H Discharge - Discharge Clinical Impression: Diabetic keto-acidosis Qualifiers: Diabetes mellitus type: type 1 Diabetes mellitus complication detail: without coma Qualified Code(s): E10.10 - Type 1 diabetes mellitus with ketoacidosis without coma Condition: Fair Disposition: ADMITTED OBSERVATION Admitting Provider: Hospitalist - Dr. Aquino Unit Admitted: ICU
[2018-08-26] MEDS ORDERED: GLUCAGON,HUMAN RECOMB 1 MG INJ SUBCUT PRN (08:00)
[2018-08-26] MEDS ORDERED: ACETAMINOPHEN 325 MG TABLET PO PRN (08:00)
[2018-08-26] MEDS ORDERED: DEXTROSE 5%-NORMAL SALINE 1,000 ML IV PRN ×2 (08:00→11:24)
[2018-08-26] MEDS ORDERED: PROMETHAZINE HCL INJ 25 MG/1 ML VIAL IV PRN (08:00)
[2018-08-26] MEDS ORDERED: ACETAMINOPHEN 650 MG SUPP.RECT PR PRN (08:00)
[2018-08-26] MEDS ORDERED: IPRATROPIUM/ALBUTEROL 0.5-2.5 MG/3 ML AMPUL NEB PRN (08:00)
[2018-08-26] MEDS ORDERED: ONDANSETRON HCL INJ/PF 4 MG/2 ML SDV IV PRN (08:00)
[2018-08-26] MEDS ORDERED: KETOROLAC TROMETHAMINE INJ/PF 30 MG/1 ML SDV IV PRN (08:09)
--- NOTE | 2018-08-26 08:37 | EKG REPORT ---
SEVERITY:- ABNORMAL ECG - SINUS TACHYCARDIA LILY, CONSIDER BIATRIAL ABNORMALITIES BORDERLINE T ABNORMALITIES, DIFFUSE LEADS : Confirmed by: Pina Snider MD 26-Aug-2018 08:37:14
[2018-08-26 08:59] LABS: URINE AMPHETAMINES SCREEN NEGATIVE; URINE BARBITURATES SCREEN NEGATIVE; URINE BENZODIAZEPINES SCREEN NEGATIVE; URINE COCAINE SCREEN UNCONFIRMED POSITIVE; URINE MARIJUANA (THC) SCREEN NEGATIVE; URINE METHADONE SCREEN NEGATIVE; URINE PHENCYCLIDINE SCREEN NEGATIVE
[2018-08-26 10:04] LABS: ANION GAP 14 (5-19); BLOOD UREA NITROGEN 10 mg/dL (7-20); CALCIUM 7.6 mg/dL (8.4-10.2); CHLORIDE 106 mmol/L (98-107); GLUCOSE 118 mg/dL (75-110); SODIUM 135.7 mmol/L (137-145)
[2018-08-26 10:14] LABS: CARBON DIOXIDE 16 mmol/L (22-30)
[2018-08-26] MEDS: FAMOTIDINE INJ/PF 20 MG/2 ML SDV IV SCH ×2 (10:14→22:26)
--- NOTE | 2018-08-26 13:01 | PDOC H&P ---
History of Present Illness Admission Date/PCP: 08/26/18 08:00 Patient complains of: high blood sugar History of Present Illness: AYAH CELAYA is a 23 year old female with a past medical history significant for insulin-dependent diabetes, bipolar disorder with depression, and tobacco dependence. She presents to the emergency department today with complaints of high blood sugar, fatigue, body aches, nausea and vomiting that have progressively worsened times 2 days. She reports compliance with diet and medication regiment. She is unable to identify any precipitating events leading to her DKA. Evaluation in the emergency department revealed unremarkable CBC, DKA with associated derangements (mild hyponatremia, bicarb of 6, anion gap 35, glucose 5 78), and EKG demonstrating sinus tachycardia. She was provided an insulin bolus, placed on aggressive IV fluids, and started on an insulin drip. She has been referred to the hospitalist service for admission and management of DKA. Past Medical History Cardiac Medical History: Reports: None Pulmonary Medical History: Reports: None EENT Medical History: Reports: None Neurological Medical History: Reports: Migraine Denies: Seizures Endocrine Medical History: Reports: Diabetes Mellitus Type 1 Renal/ Medical History: Reports: None Malignancy Medical History: Reports: None GI Medical History: Reports: None Musculoskeltal Medical History: Reports: None Psychiatric Medical History: Reports: Bipolar Disorder, Depression Denies: Attention Deficit Hyperactivity Disorder Traumatic Medical History: Reports: None Hematology: Reports: None Infectious Medical History: Reports: None Past Surgical History Past Surgical History: Reports: None Social History Information Source: Patient Smoking Status: Current Every Day Smoker Cigarettes Packs Per Day: 0.5 Frequency of Alcohol Use: Social Hx Recreational Drug Use: No Drugs: None Hx Prescription Drug Abuse: No - Advance Directive Resuscitation Status: Full Code Surrogate healthcare decision maker:: The patient's mother, Misty Levin Family History Family History: Reviewed & Not Pertinent Parental Family History Reviewed: Yes Children Family History Reviewed: Yes Sibling(s) Family History Reviewed.: Yes Medication/Allergy Home Medications: Insulin Aspart [Novolog Insulin 100 Unit/1 ml 10 ml] 0 unit SUBCUT .SLD SCALE 08/26/18 Insulin Glargine,Hum.rec.anlog [Lantus Insulin 100 Unit/1 ml 10 ml] 18 unit SUBCUT QHS 08/26/18 Allergies/Adverse Reactions: tramadol Allergy (Verified 08/20/18 12:16) Review of Systems Constitutional: PRESENT: fatigue. ABSENT: chills, fever(s), headache(s), weight gain, weight loss Eyes: ABSENT: visual disturbances Ears: ABSENT: hearing changes Cardiovascular: ABSENT: chest pain, dyspnea on exertion, edema, orthropnea, palpitations Respiratory: ABSENT: cough, hemoptysis Gastrointestinal: PRESENT: nausea, vomiting. ABSENT: abdominal pain, constipation, diarrhea, hematemesis, hematochezia Genitourinary: ABSENT: dysuria, hematuria Musculoskeletal: ABSENT: joint swelling Integumentary: ABSENT: rash, wounds Neurological: ABSENT: abnormal gait, abnormal speech, confusion, dizziness, focal weakness, syncope Psychiatric: ABSENT: anxiety, depression, homidical ideation, suicidal ideation Endocrine: PRESENT: polydipsia, polyuria. ABSENT: cold intolerance, heat i ntolerance Hematologic/Lymphatic: ABSENT: easy bleeding, easy bruising Physical Exam Vital Signs: Temp Pulse Resp BP Pulse Ox 98.3 F 133 H 16 113/63 98 08/26/18 08:28 08/26/18 04:23 08/26/18 09:00 08/26/18 09:00 08/26/18 09:00 Intake & Output 08/25/18 08/26/18 08/27/18 06:59 06:59 06:59 Intake Total 1999 Balance 1999 Weight 60.9 kg General appearance: PRESENT: no acute distress, disheveled, well-developed, well-nourished - Overweight Head exam: PRESENT: atraumatic, normocephalic Eye exam: PRESENT: conjunctiva pink, EOMI, PERRLA. ABSENT: scleral icterus Ear exam: PRESENT: normal external ear exam Mouth exam: PRESENT: dry mucosa, tongue midline Neck exam: ABSENT: carotid bruit, JVD, lymphadenopathy, thyromegaly Respiratory exam: PRESENT: clear to auscultation nahed, symmetrical, unlabored. ABSENT: rales, rhonchi, wheezes Cardiovascular exam: PRESENT: +S1, +S2, tachycardia. ABSENT: diastolic murmur, rubs, systolic murmur Pulses: PRESENT: normal dorsalis pedis pul Vascular exam: PRESENT: normal capillary refill GI/Abdominal exam: PRESENT: normal bowel sounds, soft. ABSENT: distended, guarding, mass, organolmegaly, rebound, tenderness Rectal exam: PRESENT: deferred Extremities exam: PRESENT: full ROM. ABSENT: calf tenderness, clubbing, pedal edema Neurological exam: PRESENT: alert, awake, oriented to person, oriented to place, oriented to time, oriented to situation, CN II-XII grossly intact. ABSENT: motor sensory deficit Psychiatric exam: PRESENT: agitated, appropriate affect. ABSENT: homicidal ideation, suicidal ideation Skin exam: PRESENT: dry, intact, warm. ABSENT: cyanosis, rash Results Laboratory Results: 08/26/18 04:45 08/26/18 09:10 08/26/18 08/26/18 08/26/18 04:45 04:45 04:45 WBC 7.0 RBC 4.50 Hgb 15.0 Hct 46.5 MCV 103 H MCH 33.4 MCHC 32.4 RDW 14.6 H Plt Count 360 Seg Neutrophils % Not Reportable Lymphocytes % Not Reportable Monocytes % Not Reportable Eosinophils % Not Reportable Basophils % Not Reportable Absolute Neutrophils Not Reportable Absolute Lymphocytes Not Reportable Absolute Monocytes Not Reportable Absolute Eosinophils Not Reportable Absolute Basophils Not Reportable VBG pH 7.20 L VBG pCO2 15.6 L* VBG HCO3 6.0 L VBG Base Excess -19.3 Sodium Cancelled Potassium Cancelled Chloride Cancelled Carbon Dioxide Cancelled Anion Gap Cancelled BUN Cancelled Creatinine Cancelled Est GFR ( Amer) Cancelled Est GFR (Non-Af Amer) Cancelled Glucose Cancelled Calcium Cancelled Total Bilirubin Cancelled AST Cancelled ALT Cancelled Alkaline Phosphatase Cancelled Total Protein Cancelled Albumin Cancelled TSH Urine Color Urine Appearance Urine pH Ur Specific [place] Urine Protein Urine Glucose (UA) Urine Ketones Urine Blood Urine Nitrite Ur Leukocyte Esterase Urine WBC (Auto) Urine RBC (Auto) 08/26/18 08/26/18 08/26/18 04:45 04:45 05:14 WBC RBC Hgb Hct MCV MCH MCHC RDW Plt Count Seg Neutrophils % Lymphocytes % Monocytes % Eosinophils % Basophils % Absolute Neutrophils Absolute Lymphocytes Absolute Monocytes Absolute Eosinophils Absolute Basophils VBG pH VBG pCO2 VBG HCO3 VBG Base Excess Sodium 135.7 L Potassium 4.2 Chloride 95 L Carbon Dioxide 6 L* Anion Gap 35 H BUN 15 Creatinine 1.23 Est GFR ( Amer) > 60 Est GFR (Non-Af Amer) 55 L Glucose 578 H* Calcium 9.2 Total Bilirubin 0.6 AST 102 H ALT 110 H Alkaline Phosphatase 116 Total Protein 7.1 Albumin 4.4 TSH 0.63 Urine Color STRAW Urine Appearance CLEAR Urine pH 5.0 Ur Specific [place] 1.021 Urine Protein NEGATIVE Urine Glucose (UA) >=500 H Urine Ketones 80 H Urine Blood SMALL H Urine Nitrite NEGATIVE Ur Leukocyte Esterase NEGATIVE Urine WBC (Auto) 1 Urine RBC (Auto) 0 08/26/18 09:10 WBC RBC Hgb Hct MCV MCH MCHC RDW Plt Count Seg Neutrophils % Lymphocytes % Monocytes % Eosinophils % Basophils % Absolute Neutrophils Absolute Lymphocytes Absolute Monocytes Absolute Eosinophils Absolute Basophils VBG pH VBG pCO2 VBG HCO3 VBG Base Excess Sodium 135.7 L Potassium 4.0 Chloride 106 Carbon Dioxide 16 L D Anion Gap 14 BUN 10 Creatinine 0.69 Est GFR ( Amer) > 60 Est GFR (Non-Af Amer) > 60 Glucose 118 H Calcium 7.6 L Total Bilirubin AST ALT Alkaline Phosphatase Total Protein Albumin TSH Urine Color Urine Appearance Urine pH Ur Specific [place] Urine Protein Urine Glucose (UA) Urine Ketones Urine Blood Urine Nitrite Ur Leukocyte Esterase Urine WBC (Auto) Urine RBC (Auto) Assessment & Plan - Diagnosis (1) Diabetic keto-acidosis Qualifiers: Diabetes mellitus type: type 1 Diabetes mellitus complication detail: without coma Qualified Code(s): E10.10 - Type 1 diabetes mellitus with ketoacidosis without coma Is this a current diagnosis for this admission?: Yes Plan: Patient was admitted with DKA; reported 2 days of progressively worsening nausea and vomiting without precipitating illness. Patient reports compliance with dietary medication recommendations. A1c 9.7%. Urinalysis negative for UTI, UDS is positive for cocaine. Patient is admitted to [facility] on continuous cardiac telemetry. We will continue aggressive IV fluid resuscitation. Insulin drip; titrate per protocol. N.p.o.; will advance to clears/consistent carb once gap is closed. The registered dietitian, breastfeeding educator, and order planner are consulted. (2) Nausea & vomiting Qualifiers: Vomiting Intractability: non-intractable Is this a current diagnosis for this admission?: Yes Plan: Secondary to DKA. IV fluids as above. Antiemetics as needed. N.p.o.; cautiously advance to clears once gap is closed. (3) Cocaine abuse Is this a current diagnosis for this admission?: Yes Plan: UDS is positive for cocaine (unconfirmed). Movements discussed with patient the risks of continued illicit drug use (4) Tobacco use Is this a current diagnosis for this admission?: Yes Plan: Smoking cessation is encouraged, nicotine replacement therapies are provided. - Time Time Spent: 50 to 70 Minutes Medications reviewed and adjusted accordingly: Yes Anticipated discharge: Home Within: within 48 hours - Inpatient Certification Based on my medical assessment, after consideration of the patient's comorbidities, presenting symptoms, or acuity I expect that the services needed warrant INPATIENT care.: Yes I certify that my determination is in accordance with my understanding of Medicare's requirements for reasonable and necessary INPATIENT services [42 CFR 412.3e].: Yes Medical Necessity: Need Close Monitoring Due to Risk of Patient Decompensation, Need For IV Fluids, Risk of Complication if Not Cared For in Hospital
[2018-08-26] MEDS: NICOTINE 14 MG/24 HR PATCH.TD24 TD SCH (13:34)
[2018-08-26] MEDS: HEPARIN SOD (PORCINE) 5,000 UNIT/ML 1 ML SYRINGE SUBCUT SCH ×2 (13:35→22:25)
[2018-08-26 14:13] LABS: ANION GAP 6 (5-19); BLOOD UREA NITROGEN 8 mg/dL (7-20); CALCIUM 7.5 mg/dL (8.4-10.2); CARBON DIOXIDE 22 mmol/L (22-30); CHLORIDE 109 mmol/L (98-107); GLUCOSE 77 mg/dL (75-110); POTASSIUM 3.5 mmol/L (3.6-5.0); SODIUM 136.8 mmol/L (137-145)
[2018-08-26] MEDS ORDERED: INSULIN GLARGINE,HUM.REC.ANLOG 1,000 UNIT/10 ML UNIT SUBCUT ONE ×2 (15:37→15:45)
[2018-08-26] MEDS: INSULIN LISPRO 100 UNIT/ML 3 ML VIAL SUBCUT SCH ×2 (17:21→22:26)
[2018-08-26] MEDS: NORMAL SALINE 1000 ML 1,000 ML IV PRN (17:47)
[2018-08-26 18:57] LABS: ANION GAP 15 (5-19); BLOOD UREA NITROGEN 8 mg/dL (7-20); CARBON DIOXIDE 14 mmol/L (22-30); CHLORIDE 106 mmol/L (98-107); GLUCOSE 253 mg/dL (75-110); POTASSIUM 3.9 mmol/L (3.6-5.0); SODIUM 134.9 mmol/L (137-145)
[2018-08-26 20:34] LABS: ANION GAP 13 (5-19); BLOOD UREA NITROGEN 7 mg/dL (7-20); CALCIUM 7.8 mg/dL (8.4-10.2); CARBON DIOXIDE 15 mmol/L (22-30); CHLORIDE 107 mmol/L (98-107); GLUCOSE 133 mg/dL (75-110); SODIUM 134.5 mmol/L (137-145)
[2018-08-27 00:41] LABS: ANION GAP 13 (5-19); BLOOD UREA NITROGEN 7 mg/dL (7-20); CALCIUM 8.1 mg/dL (8.4-10.2); CARBON DIOXIDE 14 mmol/L (22-30); CHLORIDE 108 mmol/L (98-107); GLUCOSE 155 mg/dL (75-110); SODIUM 135.1 mmol/L (137-145)
[2018-08-27] MEDS: NORMAL SALINE 1000 ML 1,000 ML IV PRN (04:26)
[2018-08-27 05:21] LABS: ANION GAP 12 (5-19); BLOOD UREA NITROGEN 7 mg/dL (7-20); CALCIUM 7.9 mg/dL (8.4-10.2); CARBON DIOXIDE 15 mmol/L (22-30); CHLORIDE 109 mmol/L (98-107); GLUCOSE 202 mg/dL (75-110); HEMATOCRIT 31.9 % (36.0-47.0); MEAN CORPUSCULAR HEMOGLOBIN 33.8 pg (27.0-33.4); MEAN CORPUSCULAR HGB CONC 34.5 g/dL (32.0-36.0); PLATELET COUNT 251 10^3/uL (150-450); POTASSIUM 3.6 mmol/L (3.6-5.0); RED BLOOD COUNT 3.26 10^6/uL (3.72-5.28); RED CELL DISTRIBUTION WIDTH 13.7 % (11.5-14.0); SODIUM 136.2 mmol/L (137-145)
[2018-08-27 05:29] LABS: MEAN CORPUSCULAR VOLUME 98 fl (80-97)
[2018-08-27] MEDS: HEPARIN SOD (PORCINE) 5,000 UNIT/ML 1 ML SYRINGE SUBCUT SCH (06:27)
[2018-08-27] MEDS: INSULIN LISPRO 100 UNIT/ML 3 ML VIAL SUBCUT SCH ×2 (07:59→11:40)
[2018-08-27 09:08] LABS: ANION GAP 8 (5-19); BLOOD UREA NITROGEN 7 mg/dL (7-20); CALCIUM 8.5 mg/dL (8.4-10.2); CARBON DIOXIDE 22 mmol/L (22-30); CHLORIDE 109 mmol/L (98-107); GLUCOSE 76 mg/dL (75-110); POTASSIUM 4.2 mmol/L (3.6-5.0); SODIUM 138.9 mmol/L (137-145)
[2018-08-27] MEDS: NICOTINE 14 MG/24 HR PATCH.TD24 TD SCH (09:29)
[2018-08-27] MEDS: FAMOTIDINE INJ/PF 20 MG/2 ML SDV IV SCH (09:29)
--- NOTE | 2018-08-27 11:33 | PDOC DISCHARGE SUMMARY ---
General - Admit/Disc Date/PCP Admission Date/Primary Care Provider: 08/26/18 08:00 Discharge Date: 08/27/18 - Discharge Diagnosis (1) Diabetic keto-acidosis Is this a current diagnosis for this admission?: Yes Summary: Resolved. Patient is discharged on her home medication regiment; she declines the need for prescription refills. She is encouraged to drink plenty of water and follow a consistent carb diet. (2) Nausea & vomiting Is this a current diagnosis for this admission?: Yes Summary: Resolved; secondary to DKA. (3) Cocaine abuse Is this a current diagnosis for this admission?: Yes Summary: Unconfirmed positive; patient denies use. She is encouraged to avoid illicit drug use. (4) Tobacco use Is this a current diagnosis for this admission?: Yes Summary: Smoking cessation is encouraged; prescription for NicoDerm patches is provided. - Additional Information Resuscitation Status: Full Code Discharge Diet: Diabetic Discharge Activity: Activity As Tolerated, Balance Activity w/Rest Prescriptions: Nicotine [Nicoderm 14 mg/24 Hr Transdermal Patch] 1 each TD DAILY #30 patch.td24 Home Medications: Insulin Aspart [Novolog Insulin (Aspart) 100 unit/mL] 0 unit SUBCUT .SLD SCALE 08/26/18 Insulin Glargine,Hum.rec.anlog [Lantus Insulin 100 Unit/1 ml 10 ml] 18 unit SUBCUT QHS 08/26/18 Acetaminophen [Tylenol 325 mg Tablet] 650 mg PO Q4HP PRN tablet 08/27/18 Famotidine/Pf [Pepcid Inj/Pf 20 mg/2 ml Sdv] 20 mg IV Q12 vial 08/27/18 Nicotine [Nicoderm 14 mg/24 Hr Transdermal Patch] 1 each TD DAILY #30 patch.td24 08/27/18 History of Present Illness History of Present Illness: AYAH CELAYA is a 23 year old female with a past medical history significant for insulin-dependent diabetes, bipolar disorder with depression, and tobacco dependence. She presents to the emergency department today with complaints of high blood sugar, fatigue, body aches, nausea and vomiting that have progressively worsened times 2 days. She reports compliance with diet and medication regiment. She is unable to identify any precipitating events leading to her DKA. Evaluation in the emergency department revealed unremarkable CBC, DKA with associated derangements (mild hyponatremia, bicarb of 6, anion gap 35, glucose 578), and EKG demonstrating sinus tachycardia. She was provided an insulin bolus, placed on aggressive IV fluids, and started on an insulin drip. She has been referred to the hospitalist service for admission and management of DKA. Hospital Course Hospital Course: The patient was admitted to [facility] on continuous cardiac telemetry. She was provided aggressive IV fluid resuscitation and initially placed on an insulin dr ip. Her anion gap closed quickly; she remained on insulin drip until she was tolerating a clear liquid diet. At that time she was transitioned to subcutaneous Lantus and Humalog for sliding scale coverage. IV fluids were continued until her bicarb was greater than 18. Her diet was advanced and at time of discharge she is tolerating a consistent carb diet without nausea or vomiting with adequately controlled blood sugars. She is discharged home in stable conditions and advised to follow-up with her primary care provider within 1 week. Physical Exam Vital Signs: Temp Pulse Resp BP Pulse Ox 97.8 F 92 18 121/81 100 08/27/18 07:56 08/27/18 07:56 08/27/18 07:56 08/27/18 07:56 08/27/18 07:56 Intake & Output 08/26/18 08/27/18 08/28/18 06:59 06:59 06:59 Intake Total 1999 4123 Output Total 0 Balance 1999 4123 Weight 60.9 kg 65 kg General appearance: PRESENT: no acute distress, disheveled, well-developed, well-nourished - Overweight Head exam: PRESENT: atraumatic, normocephalic Eye exam: PRESENT: conjunctiva pink, EOMI, PERRLA. ABSENT: scleral icterus Ear exam: PRESENT: normal external ear exam Mouth exam: PRESENT: moist, tongue midline Neck exam: ABSENT: carotid bruit, JVD, lymphadenopathy, thyromegaly Respiratory exam: PRESENT: clear to auscultation nahed, symmetrical, unlabored. ABSENT: rales, rhonchi, wheezes Cardiovascular exam: PRESENT: RRR. ABSENT: diastolic murmur, rubs, systolic murmur Pulses: PRESENT: normal dorsalis pedis pul Vascular exam: PRESENT: normal capillary refill GI/Abdominal exam: PRESENT: normal bowel sounds, soft. ABSENT: distended, guarding, mass, organolmegaly, rebound, tenderness Rectal exam: PRESENT: deferred Extremities exam: PRESENT: full ROM. ABSENT: calf tenderness, clubbing, pedal edema Neurological exam: PRESENT: alert, awake, oriented to person, oriented to place, oriented to time, oriented to situation, CN II-XII grossly intact. ABSENT: motor sensory deficit Psychiatric exam: PRESENT: appropriate affect, normal mood. ABSENT: homicidal ideation, suicidal ideation Skin exam: PRESENT: dry, intact, warm. ABSENT: cyanosis, rash Results Laboratory Results: 08/27/18 04:02 08/27/18 08:27 08/26/18 08/26/18 08/26/18 13:07 14:15 20:00 WBC RBC Hgb Hct MCV MCH MCHC RDW Plt Count Sodium 136.8 L 134.9 L 134.5 L Potassium 3.5 L 3.9 4.0 Chloride 109 H 106 107 Carbon Dioxide 22 14 L 15 L Anion Gap 6 15 13 BUN 8 8 7 Creatinine 0.64 0.68 0.65 Est GFR ( Amer) > 60 > 60 > 60 Est GFR (Non-Af Amer) > 60 > 60 > 60 Glucose 77 253 H 133 H Calcium 7.5 L 8.0 L 7.8 L 08/27/18 08/27/18 08/27/18 00:15 04:02 04:02 WBC 4.0 RBC 3.26 L Hgb 11.0 L D Hct 31.9 L MCV 98 H D MCH 33.8 H MCHC 34.5 RDW 13.7 Plt Count 251 Sodium 135.1 L 136.2 L Potassium 4.0 3.6 Chloride 108 H 109 H Carbon Dioxide 14 L 15 L Anion Gap 13 12 BUN 7 7 Creatinine 0.61 0.63 Est GFR ( Amer) > 60 > 60 Est GFR (Non-Af Amer) > 60 > 60 Glucose 155 H 202 H Calcium 8.1 L 7.9 L 08/27/18 08:27 WBC RBC Hgb Hct MCV MCH MCHC RDW Plt Count Sodium 138.9 Potassium 4.2 Chloride 109 H Carbon Dioxide 22 Anion Gap 8 BUN 7 Creatinine 0.73 Est GFR ( Amer) > 60 Est GFR (Non-Af Amer) > 60 Glucose 76 Calcium 8.5 Qualifiers - * PATIENT BEING DISCHARGED WITH ANY OF THE FOLLOWING DIAGNOSIS: No Plan Discharge Plan: Discharge to home with self care. Follow up with Primary Care Provider within 1 week. Drink plenty of water, eat a consistent carb diet. Take insulin as prescribed. Return to the Emergency Room as needed for concerning symptoms. Time Spent: Less than 30 Minutes
[2018-08-27 11:50] VITALS: BP 140/84
[2018-08-27 12:45] LABS: ANION GAP 9 (5-19); BLOOD UREA NITROGEN 7 mg/dL (7-20); CALCIUM 8.4 mg/dL (8.4-10.2); CARBON DIOXIDE 20 mmol/L (22-30); CHLORIDE 106 mmol/L (98-107); GLUCOSE 317 mg/dL (75-110); POTASSIUM 4.8 mmol/L (3.6-5.0); SODIUM 134.8 mmol/L (137-145)
[2018-08-27] MEDS ORDERED: INSULIN GLARGINE,HUM.REC.ANLOG 300 UNIT/3 ML INSULN.PEN SUBCUT ONE (14:22)
== END 2018-08-27 12:15 | disposition home or self-care (01) | DRG 638 ==
LOC: ER 04:17 → EH 07:01 → OBSVTOIN 08:00 → 3S 09:29
PROVIDERS: ADMIT Internal Medicine; ATTEND Internal Medicine
DX: E10.10 Type 1 diabetes mellitus with ketoacidosis without coma (principal); E87.1 Hypo-osmolality and hyponatremia; F31.9 Bipolar disorder, unspecified; F14.10 Cocaine abuse, uncomplicated; Z79.4 Long term (current) use of insulin; F17.210 Nicotine dependence, cigarettes, uncomplicated; Z88.8 Allergy status to other drugs, medicaments and biological substances; G43.909 Migraine, unspecified, not intractable, without status migrainosus
CPT/HCPCS: 36415; 80048; 80053; 80307; 81001; 81025; 82803; 82962; 83036; 84443; 85025; 85027; 93005; 93010; 96361; 96374; 96375; 99285; J1644; J1815; J1885; J2405; J3010; J3490; J7030; J7120; S0028

== ENCOUNTER 2018-11-16 23:40 | Inpatient (IN) | payer OTHER ==
[2018-11-17] MEDS ORDERED: RINGERS SOLUTION,LACTATED 2,000 ML IV ONE (00:23)
[2018-11-17 00:33] LABS: VENOUS BLOOD BASE EXCESS -16.1 mmol/L; VENOUS BLOOD HCO3 9.2 mmol/L (20-32); VENOUS BLOOD PCO2 22.4 mmHg (35-63); VENOUS BLOOD PH 7.23 (7.30-7.42)
[2018-11-17 00:37] LABS: APPEARANCE,URINE SLIGHTLY-CLOUDY; BILIRUBIN,URINE NEGATIVE (NEGATIVE); COLOR,URINE STRAW; GLUCOSE, URINE >=500 mg/dL (NEGATIVE); KETONES,URINE 80 mg/dL (NEGATIVE); LEUKOCYTE ESTERASE,URINE NEGATIVE (NEGATIVE); NITRITE,URINE NEGATIVE (NEGATIVE); PROTEIN,URINE NEGATIVE (NEGATIVE); UROBILINOGEN,URINE NEGATIVE mg/dL (<2.0)
[2018-11-17 00:38] LABS: ABSOLUTE EOSINOPHILS # (AUTO) 0.1 10^3/uL (0.0-0.6); ABSOLUTE LYMPHOCYTES (AUTO) 1.3 10^3/uL (0.5-4.7); ABSOLUTE MONOCYTES (AUTO) 0.4 10^3/uL (0.1-1.4); ABSOLUTE NEUT (AUTO) 2.5 10^3/uL (1.7-8.2); BASOPHILS % (AUTO) 0.8 % (0-2); EOSINOPHILS % (AUTO) 1.7 % (0-6); HEMATOCRIT 44.5 % (36.0-47.0); HEMOGLOBIN 14.9 g/dL (12.0-15.5); MEAN CORPUSCULAR HEMOGLOBIN 32.3 pg (27.0-33.4); MEAN CORPUSCULAR HGB CONC 33.5 g/dL (32.0-36.0); MEAN CORPUSCULAR VOLUME 96 fl (80-97); MONOCYTES % (AUTO) 9.1 % (3-13); PLATELET COUNT 389 10^3/uL (150-450); RED BLOOD COUNT 4.62 10^6/uL (3.72-5.28); RED CELL DISTRIBUTION WIDTH 13.1 % (11.5-14.0); SEGMENTED NEUTROPHILS % (AUTO) 57.4 % (42-78); TOTAL CELLS COUNTED % (AUTO) 100 %; WHITE BLOOD COUNT 4.3 10^3/uL (4.0-10.5)
[2018-11-17 00:57] LABS: ALANINE AMINOTRANSFERASE 65 U/L (9-52); ALBUMIN 4.7 g/dL (3.5-5.0); ALKALINE PHOSPHATASE 92 U/L (38-126); ASPARTATE AMINO TRANSFERASE 108 U/L (14-36); BILIRUBIN,DIRECT 0.4 mg/dL (0.0-0.4); BILIRUBIN,TOTAL 0.6 mg/dL (0.2-1.3); BLOOD UREA NITROGEN 7 mg/dL (7-20); CALCIUM 10.1 mg/dL (8.4-10.2); GLUCOSE 339 mg/dL (75-110); POTASSIUM 3.6 mmol/L (3.6-5.0); SODIUM 137.4 mmol/L (137-145)
[2018-11-17 01:02] LABS: CHLORIDE 96 mmol/L (98-107)
[2018-11-17 01:08] LABS: ANION GAP 30 (5-19); CARBON DIOXIDE 11 mmol/L (22-30)
[2018-11-17] MEDS ORDERED: INSULIN REG, HUMAN 100 UNIT/ML 3 ML VIAL (PYX) IV ONE (01:20)
--- NOTE | 2018-11-17 01:36 | ER Document Report ---
ED General - General Chief Complaint: High Blood Sugar Stated Complaint: BLOOD SUGAR ISSUE Time Seen by Provider: 11/17/18 00:23 Notes: Patient is a 23-year-old female history of insulin-dependent type 1 diabetes with a history of noncompliance, has had 3 hospitalizations for diabetic ketoacidosis in 2019, presents today with concerns of feeling generally unwell. States that she has felt fatigued, overall poor for the last 36 hours. Symptoms started gradually, are regarded as being moderate in nature, constant since onset. Nothing improves or worsens her symptoms. States that she has been checking her blood sugars at home and that they have been very elevated and she is concerned that she may be back in DKA. She also notes that she is had some generalized abdominal cramping with associated nausea. Has not seen her primary care physician regarding today's concerns. States her symptoms do feel very similar to when she is had DKA in the past. TRAVEL OUTSIDE OF THE [place] IN LAST 30 DAYS: No - Related Data Allergies/Adverse Reactions: tramadol Allergy (Verified 08/20/18 12:16) Past Medical History - General Information source: Patient - Social History Smoking Status: Never Smoker Frequency of alcohol use: None Drug Abuse: Cocaine Family History: Reviewed & Not Pertinent - Past Medical History Cardiac Medical History: Denies: Hx Atrial Fibrillation, Hx Congestive Heart Failure, Hx Heart Attack, Hx Hypercholesterolemia, Hx Hypertension Pulmonary Medical History: Denies: Hx Asthma, Hx Bronchitis, Hx COPD, Hx Pneumonia, Hx Tuberculosis Neurological Medical History: Reports: Hx Migraine. Denies: Hx Seizures Endocrine Medical History: Reports: Hx Diabetes Mellitus Type 1, Hx Diabetes Mellitus Type 2 Renal/ Medical History: Denies: Hx End Stage Renal Disease, Hx Kidney Stones, Hx Peritoneal Dialysis GI Medical History: Denies: Hx Gastroesophageal Reflux Disease, Hx Hiatal Hernia, Hx Ulcer Musculoskeletal Medical History: Denies Hx Arthritis Psychiatric Medical History: Reports: Hx Bipolar Disorder, Hx Depression Denies: Hx Attention Deficit Hyperactivity Disorder, Hx Schizophrenia - Immunizations Hx Diphtheria, Pertussis, Tetanus Vaccination: Yes Review of Systems - Review of Systems Notes: Constitutional: Negative for fever. Positive for fatigue HENT: Negative for sore throat. Eyes: Negative for visual changes. Cardiovascular: Negative for chest pain. Respiratory: Negative for shortness of breath. Gastrointestinal: Positive for abdominal pain and nausea Genitourinary: Negative for dysuria. Musculoskeletal: Negative for back pain. Skin: Negative for rash. Neurological: Negative for headaches, weakness or numbness. 10 point ROS negative except as marked above and in HPI. Physical Exam - Vital signs Vitals: Temp Pulse Resp BP Pulse Ox 98.1 F 131 H 18 149/107 H 100 11/16/18 23:43 11/16/18 23:43 11/16/18 23:43 11/16/18 23:43 11/16/18 23:43 Interpretation: Hypertensive, Tachycardic Notes: PHYSICAL EXAMINATION: GENERAL: Appears moderately unwell but in no acute distress HEAD: Atraumatic, normocephalic. EYES: Pupils equal round and reactive to light, extraocular movements intact, sclera anicteric, conjunctiva are normal. ENT: nares patent, oropharynx clear without exudates. Moderately dry mucous membranes. NECK: Normal range of motion, supple without lymphadenopathy LUNGS: Breath sounds clear to auscultation bilaterally and equal. No wheezes rales or rhonchi. HEART: Regular rate and rhythm without murmurs ABDOMEN: Soft, nontender, normoactive bowel sounds. No guarding, no rebound. No masses appreciated. EXTREMITIES: Normal range of motion, no pitting or edema. No cyanosis. NEUROLOGICAL: No focal neurological deficits. Moves all extremities spontan eously and on command. PSYCH: Normal mood, normal affect. SKIN: Warm, Dry, normal turgor, no rashes or lesions noted. Course - Re-evaluation Re-evalutation: 11/17/18 01:34 Patient presents in mild diabetic ketoacidosis with hyperglycemia, pH at 7.23 anion gap expansion and bicarb at 11 with ketones in the urine. Patient has a h istory of noncompliance, frequent visits for DKA and hospitalizations. She is awake, alert, oriented no focal findings or symptoms on exam. Did complain of some generalized abdominal cramping but has no focal tenderness on exam itself. Patient was given 2 L of lactated Ringer's, third liter has been ordered. 2 points of IV access established. Patient has been placed on insulin infusion at 0.12 units per kilo per hour. I discussed with Dr. Aquino who has accepted the patient for admission. 11/17/18 02:55 - Vital Signs Vital signs: Temp Pulse Resp BP Pulse Ox 98.1 F 131 H 19 150/98 H 99 11/16/18 23:43 11/16/18 23:43 11/17/18 02:00 11/17/18 02:33 11/17/18 02:00 - Laboratory Result Diagrams: 11/17/18 00:22 11/17/18 00:22 Laboratory results interpreted by me: 11/17/18 11/17/18 11/17/18 00:22 00:22 00:22 VBG pH 7.23 L VBG pCO2 22.4 L VBG HCO3 9.2 L Chloride 96 L Carbon Dioxide 11 L Anion Gap 30 H Glucose 339 H POC Glucose AST 108 H ALT 65 H Urine Glucose (UA) >=500 H Urine Ketones 80 H Urine Blood LARGE H 11/17/18 00:22 VBG pH VBG pCO2 VBG HCO3 Chloride Carbon Dioxide Anion Gap Glucose POC Glucose 308 H AST ALT Urine Glucose (UA) Urine Ketones Urine Blood Discharge - Discharge Clinical Impression: Dehydration Diabetic keto-acidosis Qualifiers: Diabetes mellitus type: type 1 Diabetes mellitus complication detail: without coma Qualified Code(s): E10.10 - Type 1 diabetes mellitus with ketoacidosis without coma Condition: Fair Disposition: ADMITTED INPATIENT Admitting Provider: Miles (Hospitalist) Unit Admitted: [facility]
[2018-11-17] MEDS ORDERED: POTASSI CL 20 MEQ/50 ML RIDER 20 MEQ/50 ML RTUPB IV ONE (01:45)
[2018-11-17] MEDS ORDERED: DEXTROSE 40% GEL 15 GM TUBE PO PRN ×5 (02:13→16:41)
[2018-11-17] MEDS ORDERED: DEXTROSE 50%-WATER 25 GM/50 ML DISP.SYRIN IV PRN ×4 (02:13→16:41)
[2018-11-17] MEDS ORDERED: GLUCAGON,HUMAN RECOMB 1 MG INJ IM PRN ×3 (02:13→16:41)
[2018-11-17] MEDS ORDERED: MAG HYDROX/AL HYDROX/SIMETH SUSP 30 ML UDCUP PO PRN (02:14)
[2018-11-17] MEDS ORDERED: IPRATROPIUM/ALBUTEROL 0.5-2.5 MG/3 ML AMPUL NEB PRN (02:14)
[2018-11-17] MEDS ORDERED: MAGNESIUM HYDROXIDE SUSP 30 ML UDCUP PO PRN (02:14)
[2018-11-17] MEDS ORDERED: POTASSI CL 20 MEQ/D5-1/2NS 1L 1,000 ML IV PRN (02:15)
[2018-11-17 03:01] LABS: URINE AMPHETAMINES SCREEN NEGATIVE; URINE BARBITURATES SCREEN NEGATIVE; URINE BENZODIAZEPINES SCREEN NEGATIVE; URINE COCAINE SCREEN UNCONFIRMED POSITIVE; URINE MARIJUANA (THC) SCREEN NEGATIVE; URINE METHADONE SCREEN NEGATIVE; URINE PHENCYCLIDINE SCREEN NEGATIVE
[2018-11-17 03:12] LABS: ANION GAP 17 (5-19); BLOOD UREA NITROGEN 5 mg/dL (7-20); CALCIUM 9.2 mg/dL (8.4-10.2); CARBON DIOXIDE 15 mmol/L (22-30); CHLORIDE 104 mmol/L (98-107); GLUCOSE 126 mg/dL (75-110); POTASSIUM 4.1 mmol/L (3.6-5.0); SODIUM 135.9 mmol/L (137-145)
[2018-11-17] MEDS: ACETAMINOPHEN 325 MG TABLET PO PRN ×2 (03:18→17:46)
--- NOTE | 2018-11-17 04:21 | RADIOLOGY REPORT (SQ) ---
EXAM DESCRIPTION: US RETROPERITONEUM LIMITED COMPLETED DATE/TME: 11/17/2018 01:44 CLINICAL HISTORY: 23 years, Female, flank pain COMPARISON: None. TECHNIQUE: Grayscale and color images of the retroperitoneum. LIMITATIONS: None. FINDINGS: The visualized portions of the abdominal aorta appear unremarkable. Both kidneys appear normal in size, shape, and echotexture. There is no evidence of hydronephrosis bilaterally. The right kidney measures 10.5 x 6.7 x 4.0 cm the left kidney measures 11.3 x 5.4 x 5.5 cm. There is mild thickening of the daniel of the urinary bladder. No intraluminal filling defect is identified. IMPRESSION: No hydronephrosis. Mild thickening of the urinary bladder, which may be due to cystitis. copyright 2010 [employer]- All Rights Reserved
[2018-11-17] MEDS: HEPARIN SOD (PORCINE) 5,000 UNIT/ML 1 ML SYRINGE SUBCUT SCH ×3 (05:00→21:22)
--- NOTE | 2018-11-17 05:03 | PDOC H&P ---
History of Present Illness Admission Date/PCP: 11/17/18 01:43 Patient complains of: Abdominal pain History of Present Illness: AYAH CELAYA is a 23 year old female with a past medical history of insulin-dependent diabetes, nephrolithiasis and cocaine abuse who presents with 24 hours of abdominal pain nausea polyuria polydipsia and uncontrolled blood sug ar. Recognizing the symptoms she is prompted to seek evaluation emergency room where she is found to be in diabetic keto acidosis. She started on IV insulin, saline and referred to the hospitalist for admission. Patient complains of left-sided flank pain and ultrasound is negative for hydronephrosis. Rocephin is added. Past Medical History Cardiac Medical History: Denies: Atrial Fibrillation, Congestive Heart Failure, Myocardial Infarction, Hyperlipidema, Hypertension Pulmonary Medical History: Denies: Asthma, Bronchitis, Chronic Obstructive Pulmonary Disease (COPD), Pneumonia, Tuberculosis Neurological Medical History: Reports: Migraine Denies: Seizures Endocrine Medical History: Reports: Diabetes Mellitus Type 1, Diabetes Mellitus Type 2 Renal/ Medical History: Denies: End Stage Renal Disease GI Medical History: Denies: Gastroesophageal Reflux Disease, Hiatal Hernia Musculoskeltal Medical History: Denies: Arthritis Psychiatric Medical History: Reports: Bipolar Disorder, Depression Denies: Attention Deficit Hyperactivity Disorder Hematology: Denies: Anemia, Sickle Cell Disease Social History Information Source: Patient Smoking Status: Unknown if Ever Smoked Frequency of Alcohol Use: Social Hx Recreational Drug Use: No Drugs: Cocaine Hx Prescription Drug Abuse: No - Advance Directive Resuscitation Status: Full Code Family History Family History: Hypertension Parental Family History Reviewed: Yes Children Family History Reviewed: Yes Sibling(s) Family History Reviewed.: Yes Medication/Allergy Home Medications: Insulin Aspart [Novolog Insulin (Aspart) 100 unit/mL] 0 unit SUBCUT .SLD SCALE 08/26/18 Insulin Glargine,Hum.rec.anlog [Lantus (Pyxis) Insulin 100 Unit/1 ml 10 ml] 18 unit SUBCUT QHS 08/26/18 Acetaminophen [Tylenol 325 mg Tablet] 650 mg PO Q4HP PRN tablet 08/27/18 Famotidine/Pf [Pepcid Inj/Pf 20 mg/2 ml Sdv] 20 mg IV Q12 vial 08/27/18 Nicotine [Nicoderm 14 mg/24 Hr Transdermal Patch] 1 each TD DAILY #30 patch.td24 08/27/18 Allergies/Adverse Reactions: tramadol Allergy (Verified 08/20/18 12:16) Review of Systems Constitutional: PRESENT: as per HPI, anorexia, fatigue. ABSENT: chills, fever(s) Eyes: ABSENT: visual disturbances Ears: ABSENT: hearing changes Cardiovascular: ABSENT: chest pain, dyspnea on exertion, edema, orthropnea, palpitations Respiratory: ABSENT: cough, hemoptysis Gastrointestinal: PRESENT: as per HPI, abdominal pain, bloating, nausea, vomiting. ABSENT: constipation, diarrhea, hematemesis, hematochezia Genitourinary: ABSENT: dysuria, hematuria Musculoskeletal: ABSENT: joint swelling Integumentary: ABSENT: rash, wounds Neurological: ABSENT: abnormal gait, abnormal speech, confusion, dizziness, focal weakness, syncope Psychiatric: ABSENT: anxiety, depression, homidical ideation, suicidal ideation Endocrine: ABSENT: cold intolerance, heat intolerance, polydipsia, polyuria Physical Exam Vital Signs: Temp Pulse Resp BP Pulse Ox 97.4 F 118 H 16 149/90 H 99 11/17/18 04:41 11/17/18 04:41 11/17/18 04:41 11/17/18 04:41 11/17/18 04:41 Intake & Output 11/15/18 11/16/18 11/17/18 11:59 11:59 11:59 Intake Total 1999 Balance 1999 Weight 63.5 kg General appearance: PRESENT: cooperative, mild distress. ABSENT: hard of he aring Head exam: PRESENT: atraumatic, normocephalic Eye exam: PRESENT: conjunctiva pink, EOMI, PERRLA. ABSENT: scleral icterus Ear exam: PRESENT: normal external ear exam Mouth exam: PRESENT: dry mucosa. ABSENT: laceration, moist Neck exam: ABSENT: carotid bruit, JVD, lymphadenopathy, thyromegaly Respiratory exam: PRESENT: clear to auscultation nahed, tachypnea. ABSENT: rales, rhonchi, wheezes Cardiovascular exam: PRESENT: tachycardia. ABSENT: diastolic murmur, rubs, systolic murmur Pulses: PRESENT: normal dorsalis pedis pul Vascular exam: PRESENT: normal capillary refill GI/Abdominal exam: PRESENT: normal bowel sounds, soft, tenderness - Left-sided flank pain to percussion, other. ABSENT: distended, guarding, mass, organolmegaly, rebound Rectal exam: PRESENT: deferred Extremities exam: PRESENT: full ROM. ABSENT: calf tenderness, clubbing, pedal edema Neurological exam: PRESENT: alert, awake, oriented to person, oriented to place, oriented to time, oriented to situation, CN II-XII grossly intact. ABSENT: motor sensory deficit Psychiatric exam: PRESENT: appropriate affect, normal mood. ABSENT: homicidal ideation, suicidal ideation Skin exam: PRESENT: dry, intact, warm. ABSENT: cyanosis, rash Results Laboratory Results: 11/17/18 00:22 11/17/18 02:25 11/17/18 11/17/18 11/17/18 00:22 00:22 00:22 WBC 4.3 RBC 4.62 Hgb 14.9 Hct 44.5 MCV 96 MCH 32.3 MCHC 33.5 RDW 13.1 Plt Count 389 Seg Neutrophils % 57.4 Lymphocytes % 31.0 Monocytes % 9.1 Eosinophils % 1.7 Basophils % 0.8 Absolute Neutrophils 2.5 Absolute Lymphocytes 1.3 Absolute Monocytes 0.4 Absolute Eosinophils 0.1 Absolute Basophils 0.0 VBG pH 7.23 L VBG pCO2 22.4 L VBG HCO3 9.2 L VBG Base Excess -16.1 Sodium 137.4 Potassium 3.6 Chloride 96 L Carbon Dioxide 11 L Anion Gap 30 H BUN 7 Creatinine 0.88 Est GFR ( Amer) > 60 Est GFR (Non-Af Amer) > 60 Glucose 339 H Calcium 10.1 Total Bilirubin 0.6 AST 108 H ALT 65 H Alkaline Phosphatase 92 Total Protein 8.0 Albumin 4.7 Urine Color Urine Appearance Urine pH Ur Specific [place] Urine Protein Urine Glucose (UA) Urine Ketones Urine Blood Urine Nitrite Ur Leukocyte Esterase Urine WBC (Auto) Urine RBC (Auto) 11/17/18 11/17/18 00:22 02:25 WBC RBC Hgb Hct MCV MCH MCHC RDW Plt Count Seg Neutrophils % Lymphocytes % Monocytes % Eosinophils % Basophils % Absolute Neutrophils Absolute Lymphocytes Absolute Monocytes Absolute Eosinophils Absolute Basophils VBG pH VBG pCO2 VBG HCO3 VBG Base Excess Sodium 135.9 L Potassium 4.1 Chloride 104 Carbon Dioxide 15 L Anion Gap 17 BUN 5 L Creatinine 0.60 Est GFR ( Amer) > 60 Est GFR (Non-Af Amer) > 60 Glucose 126 H Calcium 9.2 Total Bilirubin AST ALT Alkaline Phosphatase Total Protein Albumin Urine Color STRAW Urine Appearance SLIGHTLY-CLOUDY Urine pH 6.0 Ur Specific [place] 1.020 Urine Protein NEGATIVE Urine Glucose (UA) >=500 H Urine Ketones 80 H Urine Blood LARGE H Urine Nitrite NEGATIVE Ur Leukocyte Esterase NEGATIVE Urine WBC (Auto) 1 Urine RBC (Auto) 27 Impressions: Renal Ultrasound 11/17/18 01:44 IMPRESSION: No hydronephrosis. Mild thickening of the urinary bladder, which may be due to cystitis. copyright 2010 [employer]- All Rights Reserved Assessment and Plan - Diagnosis (1) Diabetic keto-acidosis Qualifiers: Diabetes mellitus type: type 1 Diabetes mellitus complication detail: without coma Qualified Code(s): E10.10 - Type 1 diabetes mellitus with ketoacidosis without coma Is this a current diagnosis for this admission?: Yes Plan: Diabetic ketoacidosis patient has had some degree of polyuria polydipsia with nausea and uncontrolled hyperglycemia with supporting labs. Patient will receive IV fluids IV insulin serial chemistries every 6 hours for evaluation for electrolyte repletion. Continued evaluation for underlying cause if not found Patient will require diabetic education and consideration of mental health evaluation. (2) Cocaine abuse Is this a current diagnosis for this admission?: Yes Plan: Valium as needed, consider mental health consult (3) UTI (urinary tract infection) Qualifiers: Is this a current diagnosis for this admission?: Yes Plan: Cystitis complicated by nephrolithiasis, suggested by ultrasound. No hydronephrosis, Rocephin follow-up blood and urine culture - Time Time Spent with patient: 35 or more minutes - Inpatient Certification Medical Necessity: Need Close Monitoring Due to Risk of Patient Decompensation
[2018-11-17] MEDS ORDERED: INSULIN, REGULAR 100 UNIT/100 ML NORMAL SALINE IV PRN ×4 (07:30→14:00)
[2018-11-17] MEDS ORDERED: DEXTROSE 50%-WATER SYRINGE 25 GM/50 ML DOSE IV PRN (07:30)
[2018-11-17] MEDS ORDERED: DEXTROSE 40% GEL 15 GM TUBE X 2 PO PRN (07:30)
[2018-11-17] MEDS ORDERED: DEXTROSE 50%-WATER SYRINGE 12.5 GM/25 ML DOSE IV PRN (07:30)
[2018-11-17 07:35] LABS: BLOOD UREA NITROGEN 5 mg/dL (7-20); CALCIUM 9.1 mg/dL (8.4-10.2); GLUCOSE 387 mg/dL (75-110); POTASSIUM 4.1 mmol/L (3.6-5.0)
[2018-11-17 07:40] LABS: CHLORIDE 102 mmol/L (98-107); SODIUM 135.6 mmol/L (137-145)
[2018-11-17 07:44] LABS: ANION GAP 24 (5-19)
[2018-11-17 07:47] LABS: CARBON DIOXIDE 10 mmol/L (22-30)
[2018-11-17] MEDS ORDERED: POTASSI CL 20 MEQ/NS 1L 1,000 ML IV PRN (09:30)
[2018-11-17] MEDS: DOCUSATE SODIUM 100 MG CAPSULE PO SCH ×2 (09:40→17:47)
[2018-11-17] MEDS ORDERED: POTASSI CL 20 MEQ/D5-1/2NS 1L 1,000 ML IV ONE (11:14)
[2018-11-17 11:46] LABS: ANION GAP 14 (5-19); BLOOD UREA NITROGEN 4 mg/dL (7-20); CALCIUM 8.5 mg/dL (8.4-10.2); CARBON DIOXIDE 17 mmol/L (22-30); CHLORIDE 105 mmol/L (98-107); GLUCOSE 155 mg/dL (75-110); POTASSIUM 4.2 mmol/L (3.6-5.0); SODIUM 136.3 mmol/L (137-145)
[2018-11-17] MEDS ORDERED: POTASSI CL 20 MEQ/D5-1/2NS 1L 1000 ML IV PRN (11:53)
--- NOTE | 2018-11-17 12:47 | RADIOLOGY REPORT (SQ) ---
EXAM DESCRIPTION: CT ABD/PELVIS NO ORAL OR IV COMPLETED DATE/TIME: 11/17/2018 12:29 pm REASON FOR STUDY: persistent LLQ pain and tenderness COMPARISON: Bilateral renal ultrasound 11/17/2018 TECHNIQUE: CT scan of the abdomen and pelvis performed without intravenous or oral contrast. Images reviewed with lung, soft tissue, and bone windows. Reconstructed coronal and sagittal MPR images revi ewed. All images stored on PACS. All CT scanners at this facility use dose modulation, iterative reconstruction, and/or weight based d osing when appropriate to reduce radiation dose to as low as reasonably achievable (ALARA). [facility]: Dose Right [facility]: CareDose [facility]: Dose Right [facility]: Teradose 4D [facility]: Smart TOSA (Tests On Software Applications) RADIATION DOSE: CT Rad equipment meets quality standard of care and radiation dose reduction techniq ues were employed. CTDIvol: 3.7 mGy. DLP: 207 mGy-cm.mGy. LIMITATIONS: None. FINDINGS: LOWER CHEST: No significant findings. No nodules or infiltrates. NON-CONTRASTED LIVER, SPLEEN, ADRENALS: Evaluation limited by lack of IV contrast. No identified sign ificant masses. PANCREAS: No masses. No peripancreatic inflammatory changes. GALLBLADDER: No identified stones by CT criteria. No inflammatory changes to suggest cholecystitis. RIGHT KIDNEY AND URETER: No suspicious masses. Assessment limited by lack of IV contrast. On bocanegra l reconstruction image 51, a 2 mm upper pole intrarenal calculus is present. No right ureteral stone s are identified. No hydronephrosis or hydroureter. LEFT KIDNEY AND URETER: No suspicious masses. Assessment limited by lack of IV contrast. No signifi cant calcifications. No hydronephrosis or hydroureter. AORTA AND RETROPERITONEUM: No aneurysm. No retroperitoneal masses or adenopathy. BOWEL AND PERITONEAL CAVITY: No obvious masses or inflammatory changes. No free fluid. APPENDIX: Normal. PELVIS, BLADDER, AND ABDOMINAL WALL:No abnormal masses. No free fluid. Bladder normal. BONES: No significant findings. OTHER: No other significant finding. IMPRESSION: NO SIGNIFICANT OR ACUTE PROCESS IN THE ABDOMEN OR PELVIS. COMMENT: Quality ID # [id number]: Final reports with documentation of one or more dose reduction techniques (e.g., Automated exposure control, adjustment of the mA and/or kV according to patient size, use of iterative reconstruction technique) TECHNICAL DOCUMENTATION: JOB ID: [id number] [employer]- All Rights Reserved Reading location - IP/workstation name: [email or web address]
--- NOTE | 2018-11-17 13:46 | PDOC PROGRESS REPORT ---
Subjective Progress Note for:: 11/17/18 Subjective:: This is a 23 year old female with a past medical history of insulin-dependent diabetes, nephrolithiasis and cocaine abuse who presents with 24 hours of abdominal pain nausea polyuria polydipsia and uncontrolled blood sugar. She was noted to be in DKA. This morning, she says she feels better but still has some nausea and LLQ pain. She had one hypoglycemic episode last night and insulin drip was held. Reason For Visit: DKA LEFT FLANK PAIN Physical Exam Vital Signs: Temp Pulse Resp BP Pulse Ox 97.9 F 122 H 16 157/75 H 98 11/17/18 11:10 11/17/18 11:10 11/17/18 11:10 11/17/18 11:10 11/17/18 11:10 Intake & Output 11/16/18 11/17/18 11/18/18 06:59 06:59 06:59 Intake Total 2240 Output Total 800 Balance 1440 Weight 139 lb 15.896 oz General appearance: PRESENT: no acute distress, well-developed, well-nourished Head exam: PRESENT: atraumatic, normocephalic Eye exam: PRESENT: conjunctiva pink, EOMI, PERRLA. ABSENT: scleral icterus Ear exam: PRESENT: normal external ear exam Mouth exam: PRESENT: moist, tongue midline Neck exam: ABSENT: carotid bruit, JVD, lymphadenopathy, thyromegaly Respiratory exam: PRESENT: clear to auscultation nahed. ABSENT: rales, rhonchi, wheezes Cardiovascular exam: PRESENT: RRR. ABSENT: diastolic murmur, rubs, systolic murmur Pulses: PRESENT: normal dorsalis pedis pul GI/Abdominal exam: PRESENT: normal bowel sounds, soft. ABSENT: distended, guarding, mass, organolmegaly, rebound, tenderness Rectal exam: PRESENT: deferred Neurological exam: PRESENT: alert, awake, oriented to person, oriented to place, oriented to time, oriented to situation, CN II-XII grossly intact. ABSENT: motor sensory deficit Results Laboratory Results: 11/17/18 00:22 11/17/18 10:58 11/17/18 11/17/18 11/17/18 00:22 00:22 00:22 WBC 4.3 RBC 4.62 Hgb 14.9 Hct 44.5 MCV 96 MCH 32.3 MCHC 33.5 RDW 13.1 Plt Count 389 Seg Neutrophils % 57.4 Lymphocytes % 31.0 Monocytes % 9.1 Eosinophils % 1.7 Basophils % 0.8 Absolute Neutrophils 2.5 Absolute Lymphocytes 1.3 Absolute Monocytes 0.4 Absolute Eosinophils 0.1 Absolute Basophils 0.0 VBG pH 7.23 L VBG pCO2 22.4 L VBG HCO3 9.2 L VBG Base Excess -16.1 Sodium 137.4 Potassium 3.6 Chloride 96 L Carbon Dioxide 11 L Anion Gap 30 H BUN 7 Creatinine 0.88 Est GFR ( Amer) > 60 Est GFR (Non-Af Amer) > 60 Glucose 339 H Calcium 10.1 Total Bilirubin 0.6 AST 108 H ALT 65 H Alkaline Phosphatase 92 Total Protein 8.0 Albumin 4.7 Urine Color Urine Appearance Urine pH Ur Specific [place] Urine Protein Urine Glucose (UA) Urine Ketones Urine Blood Urine Nitrite Ur Leukocyte Esterase Urine WBC (Auto) Urine RBC (Auto) 11/17/18 11/17/18 11/17/18 00:22 02:25 06:20 WBC RBC Hgb Hct MCV MCH MCHC RDW Plt Count Seg Neutrophils % Lymphocytes % Monocytes % Eosinophils % Basophils % Absolute Neutrophils Absolute Lymphocytes Absolute Monocytes Absolute Eosinophils Absolute Basophils VBG pH VBG pCO2 VBG HCO3 VBG Base Excess Sodium 135.9 L 135.6 L Potassium 4.1 4.1 Chloride 104 102 Carbon Dioxide 15 L 10 L* Anion Gap 17 24 H BUN 5 L 5 L Creatinine 0.60 0.61 Est GFR ( Amer) > 60 > 60 Est GFR (Non-Af Amer) > 60 > 60 Glucose 126 H 387 H Calcium 9.2 9.1 Total Bilirubin AST ALT Alkaline Phosphatase Total Protein Albumin Urine Color STRAW Urine Appearance SLIGHTLY-CLOUDY Urine pH 6.0 Ur Specific [place] 1.020 Urine Protein NEGATIVE Urine Glucose (UA) >=500 H Urine Ketones 80 H Urine Blood LARGE H Urine Nitrite NEGATIVE Ur Leukocyte Esterase NEGATIVE Urine WBC (Auto) 1 Urine RBC (Auto) 27 11/17/18 10:58 WBC RBC Hgb Hct MCV MCH MCHC RDW Plt Count Seg Neutrophils % Lymphocytes % Monocytes % Eosinophils % Basophils % Absolute Neutrophils Absolute Lymphocytes Absolute Monocytes Absolute Eosinophils Absolute Basophils VBG pH VBG pCO2 VBG HCO3 VBG Base Excess Sodium 136.3 L Potassium 4.2 Chloride 105 Carbon Dioxide 17 L Anion Gap 14 BUN 4 L Creatinine 0.45 L Est GFR ( Amer) > 60 Est GFR (Non-Af Amer) > 60 Glucose 155 H Calcium 8.5 Total Bilirubin AST ALT Alkaline Phosphatase Total Protein Albumin Urine Color Urine Appearance Urine pH Ur Specific [place] Urine Protein Urine Glucose (UA) Urine Ketones Urine Blood Urine Nitrite Ur Leukocyte Esterase Urine WBC (Auto) Urine RBC (Auto) Impressions: Abdomen/Pelvis CT 11/17/18 00:00 IMPRESSION: NO SIGNIFICANT OR ACUTE PROCESS IN THE ABDOMEN OR PELVIS. Renal Ultrasound 11/17/18 01:44 IMPRESSION: No hydronephrosis. Mild thickening of the urinary bladder, which may be due to cystitis. copyright 2010 [employer]- All Rights Reserved Assessment and Plan - Diagnosis (1) Diabetic keto-acidosis Qualifiers: Diabetes mellitus type: type 1 Diabetes mellitus complication detail: without coma Qualified Code(s): E10.10 - Type 1 diabetes mellitus with ketoacidosis without coma Is this a current diagnosis for this admission?: Yes Plan: Repeat BMP. Resumed on insulin drip at 2 units/hr and D5 0.45 NS. Repeat BMP. (2) Cocaine abuse Is this a current diagnosis for this admission?: Yes Plan: Counseled on substance abuse cessation. - Time Time Spent with patient: 15-24 minutes
[2018-11-17 15:29] LABS: ANION GAP 10 (5-19); BLOOD UREA NITROGEN 4 mg/dL (7-20); CALCIUM 8.8 mg/dL (8.4-10.2); CARBON DIOXIDE 21 mmol/L (22-30); CHLORIDE 104 mmol/L (98-107); GLUCOSE 134 mg/dL (75-110); POTASSIUM 4.2 mmol/L (3.6-5.0); SODIUM 135.3 mmol/L (137-145)
[2018-11-17] MEDS ORDERED: PROMETHAZINE HCL INJ 25 MG/1 ML VIAL ONE (17:28)
[2018-11-17] MEDS ORDERED: NORMAL SALINE 1000 ML 1,000 ML IV PRN (17:37)
[2018-11-17] MEDS ORDERED: INSULIN GLARGINE,HUM.REC.ANLOG 1,000 UNIT/10 ML VIAL SUBCUT SCH ×2 (18:00→22:00)
[2018-11-17] MEDS ORDERED: INSULIN REG, HUMAN 100 UNIT/ML 3 ML VIAL (PYX) ONE (18:08)
[2018-11-17 19:43] LABS: ANION GAP 9 (5-19); BLOOD UREA NITROGEN 6 mg/dL (7-20); CALCIUM 8.7 mg/dL (8.4-10.2); CARBON DIOXIDE 27 mmol/L (22-30); CHLORIDE 107 mmol/L (98-107); GLUCOSE 90 mg/dL (75-110); POTASSIUM 3.7 mmol/L (3.6-5.0); SODIUM 142.6 mmol/L (137-145)
[2018-11-17] MEDS: INSULIN LISPRO 100 UNIT/ML 3 ML VIAL SUBCUT SCH (21:24)
--- NOTE | 2018-11-17 22:35 | EKG REPORT ---
SEVERITY:- OTHERWISE NORMAL ECG - SINUS TACHYCARDIA : Confirmed by: Pina Sinder MD 17-Nov-2018 22:35:22
[2018-11-17 23:28] LABS: ANION GAP 16 (5-19); BLOOD UREA NITROGEN 12 mg/dL (7-20); CALCIUM 9.1 mg/dL (8.4-10.2); CARBON DIOXIDE 18 mmol/L (22-30); CHLORIDE 102 mmol/L (98-107); GLUCOSE 258 mg/dL (75-110); POTASSIUM 3.8 mmol/L (3.6-5.0); SODIUM 135.6 mmol/L (137-145)
[2018-11-18] MEDS: ACETAMINOPHEN 325 MG TABLET PO PRN (02:31)
[2018-11-18 02:51] LABS: ANION GAP 10 (5-19); BLOOD UREA NITROGEN 14 mg/dL (7-20); CALCIUM 8.8 mg/dL (8.4-10.2); CARBON DIOXIDE 23 mmol/L (22-30); CHLORIDE 106 mmol/L (98-107); GLUCOSE 146 mg/dL (75-110); SODIUM 138.6 mmol/L (137-145)
[2018-11-18] MEDS: HEPARIN SOD (PORCINE) 5,000 UNIT/ML 1 ML SYRINGE SUBCUT SCH ×2 (05:26→13:26)
[2018-11-18 07:14] LABS: ABSOLUTE EOSINOPHILS # (AUTO) 0.1 10^3/uL (0.0-0.6); ABSOLUTE LYMPHOCYTES (AUTO) 1.9 10^3/uL (0.5-4.7); ABSOLUTE MONOCYTES (AUTO) 0.3 10^3/uL (0.1-1.4); ABSOLUTE NEUT (AUTO) 0.9 10^3/uL (1.7-8.2); BASOPHILS % (AUTO) 0.8 % (0-2); EOSINOPHILS % (AUTO) 3.5 % (0-6); HEMATOCRIT 32.3 % (36.0-47.0); LYMPHOCYTES % (AUTO) 57.7 % (13-45); MEAN CORPUSCULAR HGB CONC 33.9 g/dL (32.0-36.0); MEAN CORPUSCULAR VOLUME 94 fl (80-97); MONOCYTES % (AUTO) 10.3 % (3-13); PLATELET COUNT 248 10^3/uL (150-450); RED BLOOD COUNT 3.43 10^6/uL (3.72-5.28); RED CELL DISTRIBUTION WIDTH 13.2 % (11.5-14.0); SEGMENTED NEUTROPHILS % (AUTO) 27.7 % (42-78); TOTAL CELLS COUNTED % (AUTO) 100 %; WHITE BLOOD COUNT 3.3 10^3/uL (4.0-10.5)
[2018-11-18 07:17] LABS: HEMOGLOBIN 10.9 g/dL (12.0-15.5)
[2018-11-18 07:30] LABS: ANION GAP 9 (5-19); BLOOD UREA NITROGEN 12 mg/dL (7-20); CALCIUM 8.7 mg/dL (8.4-10.2); CARBON DIOXIDE 24 mmol/L (22-30); CHLORIDE 107 mmol/L (98-107); GLUCOSE 107 mg/dL (75-110); POTASSIUM 3.8 mmol/L (3.6-5.0); SODIUM 140.2 mmol/L (137-145)
[2018-11-18] MEDS: INSULIN LISPRO 100 UNIT/ML 3 ML VIAL SUBCUT SCH ×2 (08:09→12:21)
[2018-11-18] MEDS: DOCUSATE SODIUM 100 MG CAPSULE PO SCH (09:27)
[2018-11-18 12:09] VITALS: BP 126/79
[2018-11-18] MEDS ORDERED: INSULIN LISPRO 100 UNIT/ML 3 ML VIAL SUBCUT ONE (12:15)
[2018-11-18 13:54] LABS: ANION GAP 14 (5-19); BLOOD UREA NITROGEN 14 mg/dL (7-20); CALCIUM 8.9 mg/dL (8.4-10.2); CARBON DIOXIDE 20 mmol/L (22-30); CHLORIDE 102 mmol/L (98-107); GLUCOSE 283 mg/dL (75-110); POTASSIUM 4.1 mmol/L (3.6-5.0); SODIUM 136.3 mmol/L (137-145)
--- NOTE | 2018-11-18 15:48 | PDOC DISCHARGE SUMMARY ---
General - Admit/Disc Date/PCP Admission Date/Primary Care Provider: 11/17/18 01:43 Discharge Date: 11/18/18 - Discharge Diagnosis (1) Diabetic keto-acidosis Is this a current diagnosis for this admission?: Yes (2) Cocaine abuse Is this a current diagnosis for this admission?: Yes - Additional Information Resuscitation Status: Full Code Discharge Diet: Diabetic Discharge Activity: Activity As Tolerated Home Medications: Insulin Aspart [Novolog Flexpen] 0 unit SUBCUT .SLD SCALE 11/17/18 Insulin Glargine,Hum.rec.anlog [Lantus Insulin 100 Unit/1 ml 10 ml] 15 unit SUBCUT QHS 11/17/18 History of Present Illness History of Present Illness: Admitting hospitalist's H&P: AYAH CELAYA is a 23 year old female with a past medical history of insulin-dependent diabetes, multiple prior DKAs, nephrolithiasis and cocaine abuse who presents with 24 hours of abdominal pain nausea polyuria polydipsia an d uncontrolled blood sugar. Recognizing the symptoms she is prompted to seek evaluation emergency room where she is found to be in diabetic keto acidosis. Hospital Course Hospital Course: She started on insulin drip and IV fluids. She did appear dehydrated on presentation. She initially complained of vague LLQ pain. CT was unremarkable aside form a small right sided nephrolithiasis. Her DKA resolved overnight and she was transitioned back to her home regimen. She also tolerated diet well. She does admit to occasional cocaine snorting but not IV drug use. UDS was only positive for cocaine. She was counseled in length about cocaine use cessation. 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 Physical Exam Vital Signs: Temp Pulse Resp BP Pulse Ox 98.0 F 98 16 126/79 H 99 11/18/18 11:35 11/18/18 11:35 11/18/18 11:35 11/18/18 11:35 11/18/18 11:35 Intake & Output 11/17/18 11/18/18 11/19/18 06:59 06:59 06:59 Intake Total 2240 2797 472 Output Total 800 Balance 1440 2797 472 Weight 139 lb 15.896 oz 146 lb 13.246 oz General appearance: PRESENT: no acute distress, well-developed, well-nourished Head exam: PRESENT: atraumatic, normocephalic Eye exam: PRESENT: conjunctiva pink, EOMI, PERRLA. ABSENT: scleral icterus Ear exam: PRESENT: normal external ear exam Mouth exam: PRESENT: moist, tongue midline Neck exam: ABSENT: carotid bruit, JVD, lymphadenopathy, thyromegaly Respiratory exam: PRESENT: clear to auscultation nahed. ABSENT: rales, rhonchi, wheezes Cardiovascular exam: PRESENT: RRR. ABSENT: diastolic murmur, rubs, systolic murmur GI/Abdominal exam: PRESENT: normal bowel sounds, soft. ABSENT: distended, guarding, mass, organolmegaly, rebound, tenderness Rectal exam: PRESENT: deferred Neurological exam: PRESENT: alert, awake, oriented to person, oriented to place, oriented to time, oriented to situation, CN II-XII grossly intact. ABSENT: motor sensory deficit Results Laboratory Results: 11/18/18 06:54 11/18/18 13:12 11/17/18 11/17/18 11/18/18 18:56 22:50 02:20 WBC RBC Hgb Hct MCV MCH MCHC RDW Plt Count Seg Neutrophils % Lymphocytes % Monocytes % Eosinophils % Basophils % Absolute Neutrophils Absolute Lymphocytes Absolute Monocytes Absolute Eosinophils Absolute Basophils Sodium 142.6 135.6 L 138.6 Potassium 3.7 3.8 4.0 Chloride 107 102 106 Carbon Dioxide 27 18 L 23 Anion Gap 9 16 10 BUN 6 L 12 14 Creatinine 0.80 0.63 0.50 L Est GFR ( Amer) > 60 > 60 > 60 Est GFR (Non-Af Amer) > 60 > 60 > 60 Glucose 90 258 H 146 H Calcium 8.7 9.1 8.8 11/18/18 11/18/18 11/18/18 06:54 06:54 13:12 WBC 3.3 L RBC 3.43 L Hgb 10.9 L D Hct 32.3 L MCV 94 MCH 32.0 MCHC 33.9 RDW 13.2 Plt Count 248 Seg Neutrophils % 27.7 L Lymphocytes % 57.7 H Monocytes % 10.3 Eosinophils % 3.5 Basophils % 0.8 Absolute Neutrophils 0.9 L Absolute Lymphocytes 1.9 Absolute Monocytes 0.3 Absolute Eosinophils 0.1 Absolute Basophils 0.0 Sodium 140.2 136.3 L Potassium 3.8 4.1 Chloride 107 102 Carbon Dioxide 24 20 L Anion Gap 9 14 BUN 12 14 Creatinine 0.51 L 0.61 Est GFR ( Amer) > 60 > 60 Est GFR (Non-Af Amer) > 60 > 60 Glucose 107 283 H Calcium 8.7 8.9 Impressions: Abdomen/Pelvis CT 11/17/18 00:00 IMPRESSION: NO SIGNIFICANT OR ACUTE PROCESS IN THE ABDOMEN OR PELVIS. Renal Ultrasound 11/17/18 01:44 IMPRESSION: No hydronephrosis. Mild thickening of the urinary bladder, which may be due to cystitis. copyright 2010 [employer]- All Rights Reserved Qualifiers - * PATIENT BEING DISCHARGED WITH ANY OF THE FOLLOWING DIAGNOSIS: No Acute Heart Failure Is this a Heart Failure Patient?: No
== END 2018-11-18 14:05 | disposition home or self-care (01) | DRG 639 ==
LOC: ER 23:40 → EH 11-17 01:43 → 3W 11-17 03:36
PROVIDERS: ADMIT Internal Medicine; ATTEND Internal Medicine
DX: E10.10 Type 1 diabetes mellitus with ketoacidosis without coma (principal); F14.10 Cocaine abuse, uncomplicated; G43.909 Migraine, unspecified, not intractable, without status migrainosus; F31.9 Bipolar disorder, unspecified; Z79.4 Long term (current) use of insulin; Z79.899 Other long term (current) drug therapy; Z91.14 Patient's other noncompliance with medication regimen
CPT/HCPCS: 36415; 74176; 76775; 80048; 80053; 80307; 81001; 81025; 82803; 82962; 83036; 85025; 93005; 93010; 96360; 99285; J1815; J3480; J7030; J7050; J7120

== ENCOUNTER 2018-11-23 14:54 | Inpatient (IN) | payer OTHER ==
[2018-11-23] MEDS ORDERED: NORMAL SALINE 1000 ML 1,000 ML IV PRN (15:19)
[2018-11-23] MEDS ORDERED: DEXTROSE 50%-WATER 25 GM/50 ML DISP.SYRIN IV PRN ×4 (15:19→17:59)
[2018-11-23] MEDS ORDERED: DEXTROSE 40% GEL 15 GM TUBE PO PRN ×4 (15:19→17:59)
[2018-11-23] MEDS ORDERED: GLUCAGON,HUMAN RECOMB 1 MG INJ IM PRN ×2 (15:19→17:59)
[2018-11-23] MEDS ORDERED: INSULIN REG, HUMAN 100 UNIT/ML 3 ML VIAL (PYX) IV ONE ×2 (15:23→16:38)
[2018-11-23 15:45] LABS: VENOUS BLOOD HCO3 5.6 mmol/L (20-32)
[2018-11-23 15:47] LABS: HEMATOCRIT 44.7 % (36.0-47.0); HEMOGLOBIN 13.9 g/dL (12.0-15.5); MEAN CORPUSCULAR HEMOGLOBIN 32.4 pg (27.0-33.4); MEAN CORPUSCULAR HGB CONC 31.1 g/dL (32.0-36.0); PLATELET COUNT 455 10^3/uL (150-450); RED BLOOD COUNT 4.29 10^6/uL (3.72-5.28); RED CELL DISTRIBUTION WIDTH 15.2 % (11.5-14.0); VENOUS BLOOD PCO2 18.2 mmHg (35-63); VENOUS BLOOD PH 7.11 (7.30-7.42)
[2018-11-23 15:55] LABS: INTERNATIONAL RATION (INR) 1.04; PROTHROMBIN TIME 14.1 SEC (11.4-15.4)
[2018-11-23 16:08] LABS: ALANINE AMINOTRANSFERASE 61 U/L (9-52); ALBUMIN 4.2 g/dL (3.5-5.0); ALKALINE PHOSPHATASE 94 U/L (38-126); ASPARTATE AMINO TRANSFERASE 66 U/L (14-36); BILIRUBIN,DIRECT 0.4 mg/dL (0.0-0.4); BILIRUBIN,TOTAL 0.5 mg/dL (0.2-1.3); BLOOD UREA NITROGEN 7 mg/dL (7-20); CALCIUM 9.7 mg/dL (8.4-10.2); TOTAL PROTEIN 6.8 g/dL (6.3-8.2)
--- NOTE | 2018-11-23 16:11 | ER Document Report ---
ED Blood Sugar Problem - General Chief Complaint: High Blood Sugar Stated Complaint: BLOOD SUGAR ISSUE Time Seen by Provider: 11/23/18 15:09 Notes: 23-year-old female patient emergency department chief complaint of DKA. Patient states she was seen here 6 days ago. Continues to have pain in the left flank. Has not been taking her insulin today because she felt sick. Was admitted on the 10th for the same . TRAVEL OUTSIDE OF THE [place] IN LAST 30 DAYS: No - HPI Onset: Just prior to arrival Onset/Duration: Gradual Quality of pain: Achy Severity: Severe Pain Level: 5 Associated symptoms: Vomiting - Related Data Allergies/Adverse Reactions: tramadol Allergy (Verified 11/23/18 14:55) Past Medical History - General Information source: Patient - Social History Smoking Status: Smoker,Current Status Unk Frequency of alcohol use: None Drug Abuse: None Lives with: Family Family History: Hypertension - Past Medical History Cardiac Medical History: Denies: Hx Atrial Fibrillation, Hx Congestive Heart Failure, Hx Heart Attack, Hx Hypercholesterolemia, Hx Hypertension Pulmonary Medical History: Denies: Hx Asthma, Hx Bronchitis, Hx COPD, Hx Pneumonia, Hx Tuberculosis Neurological Medical History: Reports: Hx Migraine. Denies: Hx Seizures Endocrine Medical History: Reports: Hx Diabetes Mellitus Type 1, Hx Diabetes Mellitus Type 2 Renal/ Medical History: Denies: Hx End Stage Renal Disease, Hx Kidney Stones, Hx Peritoneal Dialysis GI Medical History: Denies: Hx Gastroesophageal Reflux Disease, Hx Hiatal Hernia, Hx Ulcer Musculoskeletal Medical History: Denies Hx Arthritis Psychiatric Medical History: Reports: Hx Bipolar Disorder, Hx Depression Denies: Hx Attention Deficit Hyperactivity Disorder, Hx Schizophrenia - Immunizations Hx Diphtheria, Pertussis, Tetanus Vaccination: Yes Review of Systems - Review of Systems Notes: Constitutional: denies: Chills, Diaphoresis, Fever, Malaise, +Weakness EENT: denies: Eye discharge, Blurred vision, Tearing, Double vision, Nose congestion, Nose discharge, Throat swelling, Mouth pain Cardiovascular: denies: Palpitations, Heart racing, Orthopnea, Dyspnea, Chest pain Respiratory: denies: Cough, Hurts to breathe, Wheezing, Shortness of breath Gastrointestinal: denies: Abdominal pain, Diarrhea, +Nausea, +Vomiting, Black stools, bright red blood in stool Genitourinary: denies: Burning, Dysuria, Discharge, Frequency, +Flank pain,+ Hematuria Musculoskeletal: denies: Joint pain, Joint swelling, Muscle pain, Muscle s tiffness, back pain Hematologic/Lymphatic: denies: Anemia, Easy bleeding, Easy bruising, Blood jose guadalupe ts Neurological/Psychological: denies: Confusion, Dementia, Depression, Loss of consciousness Skin: No lesions, no masses, no skin breakdown, no abscesses Physical Exam - Vital signs Vitals: Temp Pulse Resp BP Pulse Ox 97.7 F 131 H 20 145/102 H 100 11/23/18 15:00 11/23/18 15:00 11/23/18 15:00 11/23/18 15:00 11/23/18 15:00 Interpretation: Tachycardic, Tachypneic - Notes Notes: Ill appearing, strong smell of ketones on breath. - General General appearance: Appears well, Alert - HEENT Head: Normocephalic, Atraumatic Eyes: Normal Pupils: PERRL - Respiratory Respiratory status: No respiratory distress Chest status: Nontender Breath sounds: Normal Chest palpation: Normal - Cardiovascular Rhythm: Tachycardia Heart sounds: Normal auscultation Murmur: No - Abdominal Inspection: Normal Distension: No distension Bowel sounds: Normal Tenderness: Nontender Organomegaly: No organomegaly - Back Back: Normal, Nontender - Extremities General upper extremity: Normal inspection, Nontender, Normal color, Normal ROM, Normal temperature General lower extremity: Normal inspection, Nontender, Normal color, Normal ROM, Normal temperature, Normal weight bearing. No: Joy's sign - Neurological Neuro grossly intact: Yes Cognition: Normal Orientation: AAOx4 Alejandra Coma Scale Eye Opening: Spontaneous Webster Coma Scale Verbal: Oriented [place] Coma Scale Motor: Obeys Commands Alejandra Coma Scale Total: 15 Speech: Normal Motor strength normal: LUE, RUE, LLE, RLE Sensory: Normal - Psychological Associated symptoms: Normal affect, Normal mood - Skin Skin Temperature: Warm Skin Moisture: Dry Skin Color: Normal Course - Re-evaluation Re-evalutation: 11/23/18 17:38 Laboratory 11/23/18 11/23/18 11/23/18 15:20 15:20 15:20 WBC 8.0 RBC 4.29 Hgb 13.9 Hct 44.7 MCV 104 H D MCH 32.4 MCHC 31.1 L RDW 15.2 H Plt Count 455 H Total Counted 100 Seg Neutrophils % Not Reportable Seg Neuts % (Manual) 47 Band Neutrophils % 1 L Lymphocytes % Not Reportable Lymphocytes % (Manual) 44 Monocytes % Not Reportable Monocytes % (Manual) 6 Eosinophils % Not Reportable Eosinophils % (Manual) 1 Basophils % Not Reportable Basophils % (Manual) 1 Absolute Neutrophils Not Reportable Abs Neuts (Manual) 3.8 Absolute Lymphocytes Not Reportable Abs Lymphs (Manual) 3.5 Absolute Monocytes Not Reportable Abs Monocytes (Manual) 0.5 Absolute Eosinophils Not Reportable Absolute Eos (Manual) 0.1 Absolute Basophils Not Reportable Abs Basophils (Manual) 0.1 Platelet Comment INCREASED Polychromasia SLIGHT Poikilocytosis SLIGHT Anisocytosis SLIGHT Macrocytosis 2+ Ovalocytes SLIGHT PT 14.1 INR 1.04 APTT 21.0 L VBG pH VBG pCO2 VBG HCO3 VBG Base Excess Sodium 136.0 L Potassium 5.0 Chloride 98 Carbon Dioxide 6 L* Anion Gap 32 H BUN 7 Creatinine 0.93 Est GFR ( Amer) > 60 Est GFR (Non-Af Amer) > 60 Glucose 613 H* Lactic Acid Calcium 9.7 Total Bilirubin 0.5 Direct Bilirubin 0.4 Neonat Total Bilirubin Not Reportable Neonat Direct Bilirubin Not Reportable Neonat Indirect Bili Not Reportable AST 66 H ALT 61 H Alkaline Phosphatase 94 Total Protein 6.8 Albumin 4.2 Serum HCG, Qual 11/23/18 11/23/18 11/23/18 15:20 15:20 15:20 WBC RBC Hgb Hct MCV MCH MCHC RDW Plt Count Total Counted Seg Neutrophils % Seg Neuts % (Manual) Band Neutrophils % Lymphocytes % Lymphocytes % (Manual) Monocytes % Monocytes % (Manual) Eosinophils % Eosinophils % (Manual) Basophils % Basophils % (Manual) Absolute Neutrophils Abs Neuts (Manual) Absolute Lymphocytes Abs Lymphs (Manual) Absolute Monocytes Abs Monocytes (Manual) Absolute Eosinophils Absolute Eos (Manual) Absolute Basophils Abs Basophils (Manual) Platelet Comment Polychromasia Poikilocytosis Anisocytosis Macrocytosis Ovalocytes PT INR APTT VBG pH 7.11 L* VBG pCO2 18.2 L* VBG HCO3 5.6 L VBG Base Excess -22.0 Sodium Potassium Chloride Carbon Dioxide Anion Gap BUN Creatinine Est GFR ( Amer) Est GFR (Non-Af Amer) Glucose Lactic Acid 2.8 H Calcium Total Bilirubin Direct Bilirubin Neonat Total Bilirubin Neonat Direct Bilirubin Neonat Indirect Bili AST ALT Alkaline Phosphatase Total Protein Albumin Serum HCG, Qual NEGATIVE Patient in DKA. Well-known to the hospital staff. At this time will admit to the hospital in stable condition. Patient is on insulin drip, getting IV fluids. Avoiding narcotic pain medication at this time as well. - Vital Signs Vital signs: Temp Pulse Resp BP Pulse Ox 97.7 F 131 H 20 145/102 H 100 11/23/18 15:00 11/23/18 15:00 11/23/18 15:00 11/23/18 15:00 11/23/18 15:00 - Laboratory Result Diagrams: 11/23/18 15:20 11/23/18 15:20 Laboratory results interpreted by me: 11/23/18 11/23/18 11/23/18 15:20 15:20 15:20 MCV 104 H D MCHC 31.1 L RDW 15.2 H Plt Count 455 H Band Neutrophils % 1 L APTT 21.0 L VBG pH VBG pCO2 VBG HCO3 Sodium 136.0 L Carbon Dioxide 6 L* Anion Gap 32 H Glucose 613 H* Lactic Acid AST 66 H ALT 61 H 11/23/18 11/23/18 15:20 15:20 MCV MCHC RDW Plt Count Band Neutrophils % APTT VBG pH 7.11 L* VBG pCO2 18.2 L* VBG HCO3 5.6 L Sodium Carbon Dioxide Anion Gap Glucose Lactic Acid 2.8 H AST ALT Critical Care Note - Critical Care Note Total time excluding time spent on procedures (mins): 45 Comments: DKA, acidosis, consultation with specialist, coordination of admission. Discharge - Discharge Clinical Impression: Diabetic ketoacidosis Qualifiers: Diabetes mellitus type: type 1 Diabetes mellitus complication detail: without coma Qualified Code(s): E10.10 - Type 1 diabetes mellitus with ketoacidosis without coma Condition: Good Disposition: ADMITTED INPATIENT Admitting Provider: Gail (Hospitalist) Unit Admitted: [facility]
[2018-11-23 16:13] LABS: CHLORIDE 98 mmol/L (98-107)
[2018-11-23 16:17] LABS: ANION GAP 32 (5-19); MEAN CORPUSCULAR VOLUME 104 fl (80-97)
[2018-11-23 16:18] LABS: CARBON DIOXIDE 6 mmol/L (22-30); GLUCOSE 613 mg/dL (75-110)
[2018-11-23 16:23] LABS: ABSOLUTE LYMPHOCYTES# (MANUAL) 3.5 10^3/uL (0.5-4.7); ABSOLUTE MONOCYTES # (MANUAL) 0.5 10^3/uL (0.1-1.4); ABSOLUTE NEUTROPHILS# (MANUAL) 3.8 10^3/uL (1.7-8.2); BAND NEUTROPHILS % (MANUAL) 1 % (3-5); BASOPHILS % (MANUAL) 1 % (0-2); EOSINOPHILS % (MANUAL) 1 % (0-6); LYMPHOCYTES % (MANUAL) 44 % (13-45); MONOCYTES % (MANUAL) 6 % (3-13); SEGMENTED NEUTROPHILS % (MAN) 47 % (42-78); TOTAL CELLS COUNTED 100
[2018-11-23 16:25] LABS: ANISOCYTOSIS SLIGHT; OVALOCYTES SLIGHT; POIKILOCYTOSIS SLIGHT; POLYCHROMASIA SLIGHT
[2018-11-23 16:26] LABS: PLATELET COMMENT INCREASED
[2018-11-23] MEDS ORDERED: KETOROLAC TROMETHAMINE INJ/PF 30 MG/1 ML SDV IV ONE (17:33)
[2018-11-23] MEDS ORDERED: NORMAL SALINE 100 ML with INSULIN REGULAR, HUMAN 100 UNIT IV PRN ×2 (17:59)
--- NOTE | 2018-11-23 18:16 | PDOC H&P ---
History of Present Illness Admission Date/PCP: 11/23/18 17:58 History of Present Illness: AYAH CELAYA is a 23 year old female with diabetes who is noncompliant. She was here less than a week ago with the same problem. She has similar presentations of showing up twice within a week back in July of this year in August of this year. She is apparently on her mother's insurance but is unemployed. She does not have her own insulin prescriptions currently, and borrows insulin occasionally from a diabetic friend. She says she was feeling fine last night and then this morning she started feeling really bad, complaining of some nausea and generalized malaise. She came to the emergency department and had a glucose greater than 600 and a constellation of symptoms consistent with DKA. This is all consistent with prior presentations. She still on her mother's insurance, and her mother is very frustrated with her because patient does not take any initiative to take care of her diabetes. Past Medical History Cardiac Medical History: Denies: Atrial Fibrillation, Congestive Heart Failure, Myocardial Infarction, Hyperlipidema, Hypertension Pulmonary Medical History: Denies: Asthma, Bronchitis, Chronic Obstructive Pulmonary Disease (COPD), Pneumonia, Tuberculosis Neurological Medical History: Reports: Migraine Denies: Seizures Endocrine Medical History: Reports: Diabetes Mellitus Type 1, Diabetes Mellitus Type 2 Renal/ Medical History: Denies: End Stage Renal Disease GI Medical History: Denies: Gastroesophageal Reflux Disease, Hiatal Hernia Musculoskeltal Medical History: Denies: Arthritis Psychiatric Medical History: Reports: Bipolar Disorder, Depression Denies: Attention Deficit Hyperactivity Disorder Hematology: Denies: Anemia, Sickle Cell Disease Social History Lives with: Family Smoking Status: Smoker,Current Status Unk Frequency of Alcohol Use: Social Hx Recreational Drug Use: No Drugs: Cocaine Hx Prescription Drug Abuse: No Family History Family History: Hypertension Parental Family History Reviewed: Yes - Hypertension Children Family History Reviewed: NA Sibling(s) Family History Reviewed.: NA Medication/Allergy Home Medications: Insulin Aspart [Novolog Flexpen] 0 unit SUBCUT .SLD SCALE 11/17/18 Insulin Glargine,Hum.rec.anlog [Lantus Insulin 100 Unit/1 ml 10 ml] 15 unit SUBCUT QHS 11/17/18 Allergies/Adverse Reactions: tramadol Allergy (Verified 11/23/18 14:55) Review of Systems All systems: reviewed and no additional remarkable complaints except as stated - All systems reviewed and were negative except as noted in the HPI Physical Exam Vital Signs: Temp Pulse Resp BP Pulse Ox 97.7 F 131 H 20 145/102 H 100 11/23/18 15:00 11/23/18 15:00 11/23/18 15:00 11/23/18 15:00 11/23/18 15:00 Intake & Output 11/22/18 11/23/18 11/24/18 06:59 06:59 06:59 Weight 59.9 kg General appearance: PRESENT: cooperative, disheveled, other - Moderate distress Head exam: PRESENT: atraumatic, normocephalic Eye exam: PRESENT: EOMI, PERRLA. ABSENT: conjunctival injection, nystagmus, scleral icterus Ear exam: PRESENT: normal external ear exam Mouth exam: PRESENT: dry mucosa, neck supple Throat exam: ABSENT: post pharyngeal erythema Neck exam: PRESENT: full ROM. ABSENT: carotid bruit, JVD, lymphadenopathy, meningismus, tenderness, thyromegaly Respiratory exam: PRESENT: clear to auscultation nahed, symmetrical, unlabored. ABSENT: accessory muscle use, crackles, prolonged expiratory phas, rhonchi, tachypnea, wheezes Cardiovascular exam: PRESENT: tachycardia Pulses: PRESENT: normal carotid pulses Vascular exam: PRESENT: normal capillary refill GI/Abdominal exam: PRESENT: normal bowel sounds, soft. ABSENT: distended, guarding, rebound, tenderness Extremities exam: ABSENT: clubbing, pedal edema Musculoskeletal exam: PRESENT: normal inspection. ABSENT: deformity Neurological exam: PRESENT: awake, oriented to person, oriented to place, oriented to situation, CN II-XII grossly intact. ABSENT: motor sensory deficit Psychiatric exam: PRESENT: flat affect Skin exam: PRESENT: dry, warm, other - She appeared generally flushed especially on her face and chest Results Laboratory Results: 11/23/18 15:20 11/23/18 15:20 11/23/18 11/23/18 11/23/18 15:20 15:20 15:20 WBC 8.0 RBC 4.29 Hgb 13.9 Hct 44.7 MCV 104 H D MCH 32.4 MCHC 31.1 L RDW 15.2 H Plt Count 455 H Seg Neutrophils % Not Reportable Lymphocytes % Not Reportable Monocytes % Not Reportable Eosinophils % Not Reportable Basophils % Not Reportable Absolute Neutrophils Not Reportable Absolute Lymphocytes Not Reportable Absolute Monocytes Not Reportable Absolute Eosinophils Not Reportable Absolute Basophils Not Reportable VBG pH VBG pCO2 VBG HCO3 VBG Base Excess Sodium 136.0 L Potassium 5.0 Chloride 98 Carbon Dioxide 6 L* Anion Gap 32 H BUN 7 Creatinine 0.93 Est GFR ( Amer) > 60 Est GFR (Non-Af Amer) > 60 Glucose 613 H* Lactic Acid 2.8 H Calcium 9.7 Total Bilirubin 0.5 AST 66 H ALT 61 H Alkaline Phosphatase 94 Total Protein 6.8 Albumin 4.2 Serum HCG, Qual 11/23/18 11/23/18 15:20 15:20 WBC RBC Hgb Hct MCV MCH MCHC RDW Plt Count Seg Neutrophils % Lymphocytes % Monocytes % Eosinophils % Basophils % Absolute Neutrophils Absolute Lymphocytes Absolute Monocytes Absolute Eosinophils Absolute Basophils VBG pH 7.11 L* VBG pCO2 18.2 L* VBG HCO3 5.6 L VBG Base Excess -22.0 Sodium Potassium Chloride Carbon Dioxide Anion Gap BUN Creatinine Est GFR ( Amer) Est GFR (Non-Af Amer) Glucose Lactic Acid Calcium Total Bilirubin AST ALT Alkaline Phosphatase Total Protein Albumin Serum HCG, Qual NEGATIVE Assessment and Plan - Diagnosis (1) Diabetic keto-acidosis Qualifiers: Diabetes mellitus type: type 1 Diabetes mellitus complication detail: without coma Qualified Code(s): E10.10 - Type 1 diabetes mellitus with ketoacidosis without coma Is this a current diagnosis for this admission?: Yes Plan: She was started on insulin drip in the ER and her blood sugar came down very abruptly to 135. Insulin drip is temporarily on hold. She only got 1 L of IV fluids in the ER. Her repeating the metabolic panel now. We will start her empirically on D5 half-normal saline with 20 mEq of potassium. Metabolic panel every 4 hours. She will be n.p.o. for the time being. We will try to coordinate an insulin regimen for her that she will be able to afford and adhere to, and arrange for her to see her primary care provider when she is ready to be discharged. - Time Time Spent with patient: 70 minutes Time Spent with patient: 35 or more minutes - Inpatient Certification Based on my medical assessment, after consideration of the patient's comorbidities, presenting symptoms, or acuity I expect that the services needed warrant INPATIENT care.: Yes I certify that my determination is in accordance with my understanding of Medicare's requirements for reasonable and necessary INPATIENT services [42 CFR 412.3e].: Yes Medical Necessity: Need Close Monitoring Due to Risk of Patient Decompensation, Need For IV Fluids, Need For Continuous Telemetry Monitoring, Risk of Complication if Not Cared For in Hospital
--- NOTE | 2018-11-23 18:41 | RADIOLOGY REPORT (SQ) ---
EXAM DESCRIPTION: [employer] COMPLETED DATE/TIME: 11/23/2018 6:25 pm REASON FOR STUDY: left flank pain COMPARISON: 11/17/2018 TECHNIQUE: Dynamic and static grayscale images acquired of the kidneys and bladder and recorded on P ACS. Additional selected color Doppler and spectral images recorded. LIMITATIONS: None. FINDINGS: RIGHT KIDNEY: Normal size, 9.7 cm. Normal echogenicity. No solid or suspicious masses . No hydronephrosis. No calcifications. LEFT KIDNEY: Normal size, 9.5 cm. Normal echogenicity. No solid or suspicious masses. No hydro nephrosis. No calcifications. BLADDER: No bladder mass. Ureteral jets were not seen. OTHER FINDINGS: No other significant finding. IMPRESSION: NORMAL RENAL AND BLADDER ULTRASOUND. TECHNICAL DOCUMENTATION: JOB ID: [id number] [employer]- All Rights Reserved Reading location - IP/workstation name: [email or web address]
[2018-11-23] MEDS: POTASSI CL 20 MEQ/D5-1/2NS 1L 1,000 ML IV PRN ×2 (18:45→23:58)
[2018-11-23 20:09] LABS: ANION GAP 15 (5-19); BLOOD UREA NITROGEN 6 mg/dL (7-20); CALCIUM 8.7 mg/dL (8.4-10.2); CARBON DIOXIDE 14 mmol/L (22-30); CHLORIDE 109 mmol/L (98-107); GLUCOSE 134 mg/dL (75-110); POTASSIUM 4.1 mmol/L (3.6-5.0)
[2018-11-23] MEDS: HEPARIN SOD (PORCINE) 5,000 UNIT/ML 1 ML SYRINGE SUBCUT SCH (21:22)
[2018-11-24 00:07] LABS: ANION GAP 10 (5-19); BLOOD UREA NITROGEN 5 mg/dL (7-20); CALCIUM 8.5 mg/dL (8.4-10.2); CARBON DIOXIDE 18 mmol/L (22-30); CHLORIDE 109 mmol/L (98-107); GLUCOSE 106 mg/dL (75-110); POTASSIUM 3.8 mmol/L (3.6-5.0); SODIUM 137.4 mmol/L (137-145)
[2018-11-24 04:06] LABS: ANION GAP 11 (5-19); BLOOD UREA NITROGEN 5 mg/dL (7-20); CALCIUM 8.5 mg/dL (8.4-10.2); CARBON DIOXIDE 20 mmol/L (22-30); CHLORIDE 109 mmol/L (98-107); GLUCOSE 121 mg/dL (75-110); POTASSIUM 3.8 mmol/L (3.6-5.0); SODIUM 139.5 mmol/L (137-145)
[2018-11-24] MEDS: HEPARIN SOD (PORCINE) 5,000 UNIT/ML 1 ML SYRINGE SUBCUT SCH (05:25)
[2018-11-24] MEDS ORDERED: GLUCAGON,HUMAN RECOMB 1 MG INJ IM PRN (05:30)
[2018-11-24] MEDS: INSULIN LISPRO 100 UNIT/ML 3 ML VIAL SUBCUT SCH ×2 (07:46→11:11)
[2018-11-24 07:55] LABS: ANION GAP 12 (5-19); BLOOD UREA NITROGEN 4 mg/dL (7-20); CARBON DIOXIDE 18 mmol/L (22-30); CHLORIDE 109 mmol/L (98-107); GLUCOSE 78 mg/dL (75-110); POTASSIUM 3.4 mmol/L (3.6-5.0); SODIUM 138.8 mmol/L (137-145)
[2018-11-24] MEDS ORDERED: ACETAMINOPHEN 325 MG TABLET PO PRN (09:26)
--- NOTE | 2018-11-24 10:23 | PDOC DISCHARGE SUMMARY ---
General - Admit/Disc Date/PCP Admission Date/Primary Care Provider: 11/23/18 17:58 Discharge Date: 11/24/18 - Discharge Diagnosis (1) Diabetic keto-acidosis Is this a current diagnosis for this admission?: Yes Summary: She responded quickly to IV fluids and insulin drip. When she was out DKA she was transitioned over to subcutaneous insulin. Her blood sugars well controlled. In an attempt to increase her compliance, we put her on Novolin 70/30 twice daily rather than a basal bolus regimen in the hopes that she would be more likely to comply with twice daily dosing instead of 4 separate injections a day. She was also scheduled to follow-up with her new primary care office in about a week. - Additional Information Resuscitation Status: Full Code Discharge Diet: Diabetic Discharge Activity: Activity As Tolerated Prescriptions: Hum Insulin NPH/Reg Insulin Hm [Insulin Inj 70-30 (100 Unit/1 ml) 3 ml Vial] 15 unit SUBCUT BIDACBS #3 unit Home Medications: Hum Insulin NPH/Reg Insulin Hm [Insulin Inj 70-30 (100 Unit/1 ml) 3 ml Vial] 15 unit SUBCUT BIDACBS #3 unit 11/24/18 History of Present Illness History of Present Illness: AYAH CELAYA is a 23 year old female with diabetes who is noncompliant. She was here less than a week ago with the same problem. She has similar p resentations of showing up twice within a week back in July of this year in August of this year. She is apparently on her mother's insurance but is unemployed. She does not have her own insulin prescriptions currently, and borrows insulin occasionally from a diabetic friend. She says she was feeling fine last night and then this morning she started feeling really bad, complaining of some nausea and generalized malaise. She came to the emergency department and had a glucose greater than 600 and a constellation of symptoms consistent with DKA. This is all consistent with prior presentations. She still on her mother's insurance, and her mother is very frustrated with her because patient does not take any initiative to take care of her diabetes. Hospital Course Hospital Course: She responded quickly to IV fluids and insulin. She was also given electrolyte replacement. She was transitioned over to Novolin 70/30 for the reasons described above. She choose a primary care provider and we were able to get her an appointment for 1 week. Her labs and examination were reassuring she was discharged in good condition. Physical Exam Vital Signs: Temp Pulse Resp BP Pulse Ox 98.8 F 112 H 16 129/78 H 100 11/24/18 07:33 11/24/18 07:33 11/24/18 07:33 11/24/18 07:33 11/24/18 07:33 Intake & Output 11/23/18 11/24/18 11/25/18 06:59 06:59 06:59 Intake Total 3024 Balance 3024 Weight 61.8 kg General appearance: PRESENT: no acute distress, cooperative, disheveled Respiratory exam: PRESENT: clear to auscultation nahed, symmetrical, unlabored. ABSENT: accessory muscle use, crackles, prolonged expiratory phas, rhonchi, tachypnea, wheezes Cardiovascular exam: PRESENT: RRR, +S1, +S2 Pulses: PRESENT: normal carotid pulses Vascular exam: PRESENT: normal capillary refill GI/Abdominal exam: PRESENT: normal bowel sounds, soft. ABSENT: distended, guarding, rebound, tenderness Extremities exam: ABSENT: clubbing, pedal edema Musculoskeletal exam: PRESENT: normal inspection. ABSENT: deformity Neurological exam: PRESENT: alert, awake, oriented to person, oriented to place, oriented to time, oriented to situation Psychiatric exam: PRESENT: appropriate affect, normal mood Skin exam: PRESENT: dry, warm Results Laboratory Results: 11/23/18 15:20 11/24/18 06:57 11/23/18 11/23/18 11/23/18 15:20 15:20 15:20 WBC 8.0 RBC 4.29 Hgb 13.9 Hct 44.7 MCV 104 H D MCH 32.4 MCHC 31.1 L RDW 15.2 H Plt Count 455 H Seg Neutrophils % Not Reportable Lymphocytes % Not Reportable Monocytes % Not Reportable Eosinophils % Not Reportable Basophils % Not Reportable Absolute Neutrophils Not Reportable Absolute Lymphocytes Not Reportable Absolute Monocytes Not Reportable Absolute Eosinophils Not Reportable Absolute Basophils Not Reportable VBG pH VBG pCO2 VBG HCO3 VBG Base Excess Sodium 136.0 L Potassium 5.0 Chloride 98 Carbon Dioxide 6 L* Anion Gap 32 H BUN 7 Creatinine 0.93 Est GFR ( Amer) > 60 Est GFR (Non-Af Amer) > 60 Glucose 613 H* Lactic Acid 2.8 H Calcium 9.7 Magnesium Total Bilirubin 0.5 AST 66 H ALT 61 H Alkaline Phosphatase 94 Total Protein 6.8 Albumin 4.2 Serum HCG, Qual 11/23/18 11/23/18 11/23/18 15:20 15:20 19:37 WBC RBC Hgb Hct MCV MCH MCHC RDW Plt Count Seg Neutrophils % Lymphocytes % Monocytes % Eosinophils % Basophils % Absolute Neutrophils Absolute Lymphocytes Absolute Monocytes Absolute Eosinophils Absolute Basophils VBG pH 7.11 L* VBG pCO2 18.2 L* VBG HCO3 5.6 L VBG Base Excess -22.0 Sodium Potassium Chloride Carbon Dioxide Anion Gap BUN Creatinine Est GFR ( Amer) Est GFR (Non-Af Amer) Glucose Lactic Acid Calcium Magnesium 1.7 Total Bilirubin AST ALT Alkaline Phosphatase Total Protein Albumin Serum HCG, Qual NEGATIVE 11/23/18 11/23/18 11/24/18 19:37 23:21 03:31 WBC RBC Hgb Hct MCV MCH MCHC RDW Plt Count Seg Neutrophils % Lymphocytes % Monocytes % Eosinophils % Basophils % Absolute Neutrophils Absolute Lymphocytes Absolute Monocytes Absolute Eosinophils Absolute Basophils VBG pH VBG pCO2 VBG HCO3 VBG Base Excess Sodium 138.0 137.4 139.5 Potassium 4.1 3.8 3.8 Chloride 109 H 109 H 109 H Carbon Dioxide 14 L 18 L 20 L Anion Gap 15 10 11 BUN 6 L 5 L 5 L Creatinine 0.68 0.64 0.63 Est GFR ( Amer) > 60 > 60 > 60 Est GFR (Non-Af Amer) > 60 > 60 > 60 Glucose 134 H 106 121 H Lactic Acid Calcium 8.7 8.5 8.5 Magnesium Total Bilirubin AST ALT Alkaline Phosphatase Total Protein Albumin Serum HCG, Qual 11/24/18 06:57 WBC RBC Hgb Hct MCV MCH MCHC RDW Plt Count Seg Neutrophils % Lymphocytes % Monocytes % Eosinophils % Basophils % Absolute Neutrophils Absolute Lymphocytes Absolute Monocytes Absolute Eosinophils Absolute Basophils VBG pH VBG pCO2 VBG HCO3 VBG Base Excess Sodium 138.8 Potassium 3.4 L Chloride 109 H Carbon Dioxide 18 L Anion Gap 12 BUN 4 L Creatinine 0.58 Est GFR ( Amer) > 60 Est GFR (Non-Af Amer) > 60 Glucose 78 Lactic Acid Calcium 9.0 Magnesium Total Bilirubin AST ALT Alkaline Phosphatase Total Protein Albumin Serum HCG, Qual Impressions: Renal Ultrasound 11/23/18 17:25 IMPRESSION: NORMAL RENAL AND BLADDER ULTRASOUND. Qualifiers - * PATIENT BEING DISCHARGED WITH ANY OF THE FOLLOWING DIAGNOSIS: No Acute Heart Failure Is this a Heart Failure Patient?: No Plan Time Spent: Greater than 30 Minutes
[2018-11-24] MEDS ORDERED: POTASSIUM CHLORIDE 10 MEQ CAPSULE.ER PO ONE (11:00)
[2018-11-24 11:03] VITALS: BP 145/102
[2018-11-24 11:50] LABS: ANION GAP 13 (5-19); BLOOD UREA NITROGEN 4 mg/dL (7-20); CALCIUM 8.9 mg/dL (8.4-10.2); CARBON DIOXIDE 16 mmol/L (22-30); CHLORIDE 110 mmol/L (98-107); GLUCOSE 165 mg/dL (75-110); POTASSIUM 3.3 mmol/L (3.6-5.0); SODIUM 139.3 mmol/L (137-145)
[2018-11-24] MEDS ORDERED: INSULIN GLARGINE,HUM.REC.ANLOG 1,000 UNIT/10 ML VIAL SUBCUT SCH (22:00)
== END 2018-11-24 12:10 | disposition home or self-care (01) | DRG 639 ==
LOC: ER 14:54 → EH 17:58 → 3W 20:53
PROVIDERS: ADMIT Family Medicine; ATTEND Family Medicine
DX: E10.10 Type 1 diabetes mellitus with ketoacidosis without coma (principal); F31.9 Bipolar disorder, unspecified; Z79.4 Long term (current) use of insulin; Z91.14 Patient's other noncompliance with medication regimen
CPT/HCPCS: 36415; 76775; 80048; 80053; 82803; 82962; 83605; 83735; 84703; 85025; 85610; 85730; 96361; 96374; 99291; J1644; J1815; J1885; J3480; J3490; J7030

== ENCOUNTER 2019-01-09 09:47 | Emergency (ER) | payer OTHER ==
[2019-01-09] MEDS ORDERED: NORMAL SALINE 1000 ML 1,000 ML IV PRN (10:05)
--- NOTE | 2019-01-09 10:18 | ER Document Report ---
ED Medical Screen (RME) - General Chief Complaint: High Blood Sugar Stated Complaint: BLOOD SUGAR PROBLEMS Time Seen by Provider: 01/09/19 10:04 Mode of Arrival: Ambulatory Information source: Patient TRAVEL OUTSIDE OF THE [place] IN LAST 30 DAYS: No - HPI Notes: 01/09/19 10:06 23-year-old female with a history of type 1 diabetes presents the ED for blood sugars that read "high this morning", patient states she had some insulin left over, took 15 units, rechecked her blood sugar was 260s, rechecked in the waiting room and blood sugar was in the 150s. Patient does not have insurance, her last unit of insulin was given in the ED, does not have a primary care provider to follow-up with. Patient reports she is been having nausea, feels weak. Patient does have a Nexplanon for control. No vomiting, no high fevers or chills. came with family. ROS: Other than noted above, the 12 point review of systems was reviewed with the patient and were negative, all pertinent findings are included in the HPI. PHYSICAL EXAMINATION: Vital signs reviewed. GENERAL: Well-appearing, well-nourished and in no acute distress. HEAD: Atraumatic, normocephalic. EYES: Pupils equal round extraocular movements intact, conjunctiva are normal. ENT: Nares patent NECK: Normal range of motion CV: Heart regular rate and rhythm LUNGS: No respiratory distress Musculoskeletal: Normal range of motion NEUROLOGICAL: Normal speech PSYCH: Normal mood, normal affect. MDM: Patient seen and examined for rapid initial assessment. Vital signs reviewed. A comprehensive ED assessment and evaluation of the patient, analysis of test results and completion of the medical decision making process will be conducted by additional ED providers. *Note is created using voice recognition software and may contain spelling, syntax or grammatical errors. - Related Data Allergies/Adverse Reactions: tramadol Allergy (Verified 01/09/19 09:48) Past Medical History - General Information source: Patient - Past Medical History Cardiac Medical History: Denies: Hx Atrial Fibrillation, Hx Congestive Heart Failure, Hx Heart Attack, Hx Hypercholesterolemia, Hx Hypertension Pulmonary Medical History: Denies: Hx Asthma, Hx Bronchitis, Hx COPD, Hx Pneumonia, Hx Tuberculosis Neurological Medical History: Reports: Hx Migraine. Denies: Hx Seizures Endocrine Medical History: Reports: Hx Diabetes Mellitus Type 1, Hx Diabetes Mellitus Type 2 Renal/ Medical History: Denies: Hx End Stage Renal Disease, Hx Kidney Stones, Hx Peritoneal Dialysis GI Medical History: Denies: Hx Gastroesophageal Reflux Disease, Hx Hiatal Hernia, Hx Ulcer Musculoskeltal Medical History: Denies Hx Arthritis Psychiatric Medical History: Reports: Hx Bipolar Disorder, Hx Depression Denies: Hx Attention Deficit Hyperactivity Disorder, Hx Schizophrenia - Immunizations Hx Diphtheria, Pertussis, Tetanus Vaccination: Yes Physical Exam - Vital signs Vitals: Temp Pulse Resp BP Pulse Ox 98.4 F 127 H 18 136/90 H 98 01/09/19 09:56 01/09/19 09:56 01/09/19 09:56 01/09/19 09:56 01/09/19 09:56 Course - Vital Signs Vital signs: Temp Pulse Resp BP Pulse Ox 98.4 F 127 H 18 136/90 H 98 01/09/19 09:56 01/09/19 09:56 01/09/19 09:56 01/09/19 09:56 01/09/19 09:56
[2019-01-09 10:45] LABS: ABSOLUTE BASOPHILS # (AUTO) 0.1 10^3/uL (0.0-0.2); ABSOLUTE EOSINOPHILS # (AUTO) 0.1 10^3/uL (0.0-0.6); ABSOLUTE LYMPHOCYTES (AUTO) 1.4 10^3/uL (0.5-4.7); ABSOLUTE MONOCYTES (AUTO) 0.5 10^3/uL (0.1-1.4); ABSOLUTE NEUT (AUTO) 7.4 10^3/uL (1.7-8.2); BASOPHILS % (AUTO) 0.7 % (0-2); HEMATOCRIT 44.6 % (36.0-47.0); HEMOGLOBIN 15.2 g/dL (12.0-15.5); LYMPHOCYTES % (AUTO) 14.4 % (13-45); MEAN CORPUSCULAR HEMOGLOBIN 32.2 pg (27.0-33.4); MEAN CORPUSCULAR HGB CONC 34.1 g/dL (32.0-36.0); MEAN CORPUSCULAR VOLUME 95 fl (80-97); MONOCYTES % (AUTO) 5.6 % (3-13); PLATELET COUNT 428 10^3/uL (150-450); RED BLOOD COUNT 4.72 10^6/uL (3.72-5.28); RED CELL DISTRIBUTION WIDTH 13.6 % (11.5-14.0); SEGMENTED NEUTROPHILS % (AUTO) 78.3 % (42-78); TOTAL CELLS COUNTED % (AUTO) 100 %; WHITE BLOOD COUNT 9.4 10^3/uL (4.0-10.5)
[2019-01-09 10:55] LABS: APPEARANCE,URINE SLIGHTLY-CLOUDY; BILIRUBIN,URINE NEGATIVE (NEGATIVE); COLOR,URINE YELLOW; GLUCOSE, URINE >=500 mg/dL (NEGATIVE); KETONES,URINE 80 mg/dL (NEGATIVE); LEUKOCYTE ESTERASE,URINE LARGE (NEGATIVE); NITRITE,URINE NEGATIVE (NEGATIVE); PROTEIN,URINE 30 mg/dL (NEGATIVE); URINE SPECIFIC GRAVITY 1.016; UROBILINOGEN,URINE NEGATIVE mg/dL (<2.0)
[2019-01-09 11:07] LABS: ALANINE AMINOTRANSFERASE 45 U/L (9-52); ALBUMIN 5.1 g/dL (3.5-5.0); ALKALINE PHOSPHATASE 107 U/L (38-126); ASPARTATE AMINO TRANSFERASE 49 U/L (14-36); BILIRUBIN,DIRECT 0.4 mg/dL (0.0-0.4); BILIRUBIN,TOTAL 0.7 mg/dL (0.2-1.3); BLOOD UREA NITROGEN 12 mg/dL (7-20); CALCIUM 10.2 mg/dL (8.4-10.2); GLUCOSE 133 mg/dL (75-110); POTASSIUM 4.8 mmol/L (3.6-5.0); TOTAL PROTEIN 8.2 g/dL (6.3-8.2)
[2019-01-09 11:12] LABS: CARBON DIOXIDE 12 mmol/L (22-30); CHLORIDE 97 mmol/L (98-107); SODIUM 135.4 mmol/L (137-145)
[2019-01-09 11:14] LABS: ANION GAP 26 (5-19)
[2019-01-09 11:46] LABS: VENOUS BLOOD BASE EXCESS -8.6 mmol/L; VENOUS BLOOD HCO3 14.3 mmol/L (20-32); VENOUS BLOOD PH 7.39 (7.30-7.42)
[2019-01-09] MEDS ORDERED: NORMAL SALINE 1000 ML 1,000 ML IV ONE ×3 (12:00→12:51)
[2019-01-09] MEDS ORDERED: SODIUM BICARBONATE 8.4% INJ 50 MEQ/50 ML DISP.SYRIN IV ONE (12:34)
--- NOTE | 2019-01-09 14:56 | EKG REPORT ---
SEVERITY:- OTHERWISE NORMAL ECG - SINUS TACHYCARDIA : Confirmed by: Guillaume Valentine 09-Jan-2019 14:55:38
--- NOTE | 2019-01-09 15:17 | ER Document Report ---
ED Blood Sugar Problem <HAYLEY WATTS - Last Filed: 01/09/19 17:09> - General Mode of Arrival: Ambulatory Information source: Patient TRAVEL OUTSIDE OF THE [place] IN LAST 30 DAYS: No <TENZIN TENORIO - Last Filed: 01/12/19 10:56> - General Chief Complaint: High Blood Sugar Stated Complaint: BLOOD SUGAR PROBLEMS Time Seen by Provider: 01/09/19 10:04 Notes: Patient is a 23-year-old female presented to the emergency department with complaints of nausea, weakness and elevated blood glucose level. Patient reports this morning her blood glucose read high on her monitor. She states that she takes 70/30 insulin but she is almost out of this. She reports this morning she took 15 units of NovoLog for the blood sugar reading that read high. Patient reports she has been in DKA in the past. She denies any vomiting. (TENZIN TENORIO) - Related Data Allergies/Adverse Reactions: tramadol Allergy (Verified 01/09/19 09:48) Past Medical History - General Information source: Patient - Social History Smoking Status: Current Every Day Smoker Chew tobacco use (# tins/day): No Frequency of alcohol use: None Drug Abuse: None Family History: Hypertension Patient has suicidal ideation: No Patient has homicidal ideation: No - Past Medical History Cardiac Medical History: Denies: Hx Atrial Fibrillation, Hx Congestive Heart Failure, Hx Heart Attack, Hx Hypercholesterolemia, Hx Hypertension Pulmonary Medical History: Denies: Hx Asthma, Hx Bronchitis, Hx COPD, Hx Pneumonia, Hx Tuberculosis Neurological Medical History: Reports: Hx Migraine. Denies: Hx Seizures Endocrine Medical History: Reports: Hx Diabetes Mellitus Type 1, Hx Diabetes Mellitus Type 2 Renal/ Medical History: Denies: Hx End Stage Renal Disease, Hx Kidney Stones, Hx Peritoneal Dialysis GI Medical History: Denies: Hx Gastroesophageal Reflux Disease, Hx Hiatal Hernia, Hx Ulcer Musculoskeletal Medical History: Denies Hx Arthritis Psychiatric Medical History: Reports: Hx Bipolar Disorder, Hx Depression Denies: Hx Attention Deficit Hyperactivity Disorder, Hx Schizophrenia - Immunizations Hx Diphtheria, Pertussis, Tetanus Vaccination: Yes <TENZIN TENORIO - Last Filed: 01/12/19 10:56> Review of Systems - Review of Systems Constitutional: Weakness EENT: No symptoms reported Cardiovascular: No symptoms reported Respiratory: No symptoms reported Gastrointestinal: Nausea Genitourinary: No symptoms reported Female Genitourinary: No symptoms reported Musculoskeletal: No symptoms reported Skin: No symptoms reported Hematologic/Lymphatic: No symptoms reported Neurological/Psychological: No symptoms reported <TENZIN TENORIO - Last Filed: 01/12/19 10:56> Physical Exam <TENZIN TENORIO - Last Filed: 01/12/19 10:56> - Vital signs Vitals: Temp Pulse Resp BP Pulse Ox 98.4 F 127 H 18 136/90 H 98 01/09/19 09:56 01/09/19 09:56 01/09/19 09:56 01/09/19 09:56 01/09/19 09:56 - Notes Notes: PHYSICAL EXAMINATION: GENERAL: Well-appearing, well-nourished and in no acute distress. HEAD: Atraumatic, normocephalic. EYES: Pupils equal round and reactive to light, extraocular movements intact, conjunctiva are normal. ENT: Nares patent, oropharynx clear without exudates. Moist mucous membranes. NECK: Normal range of motion, supple without lymphadenopathy LUNGS: Breath sounds clear to auscultation bilaterally and equal. No wheezes rales or rhonchi. HEART: Regular rate and rhythm without murmurs ABDOMEN: Soft, nontender, nondistended abdomen. No guarding, no rebound. No masses appreciated. Female : deferred Musculoskeletal: Normal range of motion, no pitting or edema. No cyanosis. NEUROLOGICAL: Cranial nerves grossly intact. Normal speech, normal gait. Normal sensory, motor exams PSYCH: Normal mood, normal affect. SKIN: Warm, Dry, normal turgor, no rashes or lesions noted. (TENZIN TENORIO) Course - Laboratory Result Diagrams: 01/09/19 10:28 01/09/19 15:22 <MACHAYLEY M - Last Filed: 01/09/19 17:09> - Laboratory Result Diagrams: 01/09/19 10:28 01/09/19 15:22 <TENZIN TENORIO - Last Filed: 01/12/19 10:56> - Re-evaluation Re-evalutation: Patient appears well, nontoxic and is tachycardic with a heart rate of 127 at initial check-in. Patient does report she is anxious, and manual was rechecked by myself the time of assessment and heart rate is 110. Orders were initiated by provider in triage. Patient has a VBG with a normal pH of 7.39. Her CBC is unremarkable. Her CMP shows a CO2 of 12, anion gap of 26, potassium of 4.8 and glucose of 133. She is showing a metabolic acidosis however it is compensated. I discussed this with my attending physician, we will give her IV fluid hydration over the next several hours, 1 amp of bicarb and then re-evaluate her chemistry. At the time of reevaluation, patient's anion gap is closed, her CO2 has increased to an acceptable range. She did eat food from the cafeteria so she does have now a glucose of 444 but again no evidence of diabetic ketoacidosis. Patient remains asymptomatic, has not had any episodes of vomiting here in the emergency department and overall appears well. Her vital signs have improved. Patient will be discharged home with prescription for her insulin and her needles. Patient verbalizes understanding and agreement with this plan. (TENZIN TENORIO) - Vital Signs Vital signs: Temp Pulse Resp BP Pulse Ox 98.2 F 102 H 18 120/78 98 01/09/19 17:00 01/09/19 17:00 01/09/19 17:00 01/09/19 17:00 01/09/19 17:00 - Laboratory Laboratory results interpreted by me: 01/09/19 01/09/19 01/09/19 10:25 10:28 10:28 Seg Neutrophils % 78.3 H VBG pCO2 VBG HCO3 Sodium 135.4 L Chloride 97 L Carbon Dioxide 12 L Anion Gap 26 H Glucose 133 H POC Glucose 124 H Calcium AST 49 H Albumin 5.1 H Urine Protein Urine Glucose (UA) Urine Ketones Urine Blood Ur Leukocyte Esterase 01/09/19 01/09/19 01/09/19 10:28 11:35 15:22 Seg Neutrophils % VBG pCO2 24.0 L VBG HCO3 14.3 L Sodium 132.4 L Chloride Carbon Dioxide 20 L Anion Gap Glucose 444 H* POC Glucose Calcium 8.3 L AST Albumin Urine Protein 30 H Urine Glucose (UA) >=500 H Urine Ketones 80 H Urine Blood MODERATE H Ur Leukocyte Esterase LARGE H Discharge <HAYLEY WATTS - Last Filed: 01/09/19 17:09> <TENZIN TENORIO - Last Filed: 01/12/19 10:56> - Discharge Clinical Impression: Hyperglycemia, Nausea Condition: Stable Disposition: HOME, SELF-CARE Instructions: Family Physicians / Practices Additional Instructions: You are seen in the emergency department today for elevated blood glucose concerns and nausea. We were able to correct the deficiencies with IV fluids and medications here in the emergency department. There was no evidence of what we call diabetic ketoacidosis. It is imperative that you establish care with a primary care provider. Please continue to take the insulin as was previously prescribed to you by the hospitalist which is 70/30 insulin 15 units twice daily. Please return to the emergency department with any new or worsening sym ptoms. A list of primary care providers in the area is located in this packet. Prescriptions: Hum Insulin NPH/Reg Insulin Hm [Insulin Inj 70-30 (100 Unit/1 ml) 3 ml Vial] 15 unit SUBCUT BID #300 unit Syring-Needl,Disp,Insul,0.3 ml [Insulin Syringe 0.3 mL] 1 syr MC BID #100 syringe
[2019-01-09 15:51] LABS: ANION GAP 12 (5-19); BLOOD UREA NITROGEN 10 mg/dL (7-20); CALCIUM 8.3 mg/dL (8.4-10.2); CARBON DIOXIDE 20 mmol/L (22-30); CHLORIDE 100 mmol/L (98-107); POTASSIUM 4.4 mmol/L (3.6-5.0); SODIUM 132.4 mmol/L (137-145)
[2019-01-09 16:00] LABS: GLUCOSE 444 mg/dL (75-110)
[2019-01-09] MEDS ORDERED: INSULIN REG, HUMAN 100 UNIT/ML 3 ML VIAL (PYX) SUBCUT ONE (16:05)
[2019-01-09 17:21] VITALS: BP 120/78
== END 2019-01-09 17:21 | disposition home or self-care (01) ==
LOC: ER 09:47
DX: E11.65 Type 2 diabetes mellitus with hyperglycemia (principal); Z79.4 Long term (current) use of insulin; R53.1 Weakness; R11.0 Nausea; E87.2 Acidosis; F17.200 Nicotine dependence, unspecified, uncomplicated; Z88.5 Allergy status to narcotic agent
CPT/HCPCS: 93005; 99285; 96360; 96361; 36415; 82962; 85025; 81025; 80053; 81001; 82803; 93010; J1815; J3490; J7030

== ENCOUNTER 2019-01-25 23:18 | Emergency (ER) | payer OTHER ==
[2019-01-25 23:54] LABS: APPEARANCE,URINE CLEAR; BILIRUBIN,URINE NEGATIVE (NEGATIVE); COLOR,URINE COLORLESS; GLUCOSE, URINE >=500 mg/dL (NEGATIVE); KETONES,URINE NEGATIVE (NEGATIVE); LEUKOCYTE ESTERASE,URINE NEGATIVE (NEGATIVE); NITRITE,URINE NEGATIVE (NEGATIVE); PROTEIN,URINE NEGATIVE (NEGATIVE); URINE SPECIFIC GRAVITY 1.021; UROBILINOGEN,URINE NEGATIVE mg/dL (<2.0)
--- NOTE | 2019-01-26 02:05 | ER Document Report ---
HPI - HPI Time Seen by Provider: 01/26/19 01:53 Pain Level: 3 Context: Patient is a 23-year-old insulin-dependent diabetic who presents to the emergency department with a chief complaint of an insect bite to her left lower extremity. She has noticed some erythema that started about 3 days ago and has now spread. Denies any fever, body aches, chills or any other symptoms. Patient also does have complaints of back pain that she has had for the past 3 weeks and would like to be checked for urinary tract infection. - ROS Notes: REVIEW OF SYSTEMS: CONSTITUTIONAL : Denies recent illness. Denies recent unintentional weight loss. Denies fever, chills, or sweats. EENT: Denies eye, ear, throat, or mouth pain, discharge, or symptoms. Denies nasal or sinus congestion. CARDIOVASCULAR: Denies chest pain. RESPIRATORY: Denies shortness of breath, cough, congestion, difficulty breathing, or wheezing. GASTROINTESTINAL: Denies nausea, vomiting, and diarrhea. Denies abdominal pain. Denies constipation. GENITOURINARY: See HPI MUSCULOSKELETAL: Denies neck and back pain. Denies joint pain or swelling. SKIN: See HPI HEMATOLOGIC : Denies easy bruising or bleeding. LYMPHATIC: Denies swollen, painful, enlarged glands. NEUROLOGICAL: Denies no numbness or tingling denies weakness. Denies headache. Denies altered mental status. Denies alteration in speech. PSYCHIATRIC: Denies stress, anxiety, alteration in sleep patterns, or depression. All other systems reviewed and negative. - REPRODUCTIVE Reproductive: DENIES: : Past Medical History - Social History Smoking Status: Never Smoker Family History: Hypertension - Past Medical History Cardiac Medical History: Denies: Hx Atrial Fibrillation, Hx Congestive Heart Failure, Hx Heart Attack, Hx Hypercholesterolemia, Hx Hypertension Pulmonary Medical History: Denies: Hx Asthma, Hx Bronchitis, Hx COPD, Hx Pneumonia, Hx Tuberculosis Neurological Medical History: Reports: Hx Migraine. Denies: Hx Seizures Endocrine Medical History: Reports: Hx Diabetes Mellitus Type 1, Hx Diabetes Mellitus Type 2 Renal/ Medical History: Denies: Hx End Stage Renal Disease, Hx Kidney Stones, Hx Peritoneal Dialysis GI Medical History: Denies: Hx Gastroesophageal Reflux Disease, Hx Hiatal Hernia, Hx Ulcer Musculoskeletal Medical History: Denies Hx Arthritis Psychiatric Medical History: Reports: Hx Bipolar Disorder, Hx Depression Denies: Hx Attention Deficit Hyperactivity Disorder, Hx Schizophrenia - Immunizations Hx Diphtheria, Pertussis, Tetanus Vaccination: Yes Vertical Provider Document - CONSTITUTIONAL Agree With Documented VS: Yes Exam Limitations: No Limitations General Appearance: No Apparent Distress - INFECTION CONTROL TRAVEL OUTSIDE OF THE [place] IN LAST 30 DAYS: No - HEENT HEENT: Atraumatic, Normal ENT Exam - NECK Neck: Normal Inspection - RESPIRATORY Respiratory: Breath Sounds Normal, No Respiratory Distress - CARDIOVASCULAR Cardiovascular: Regular Rate, Regular Rhythm - MUSCULOSKELETAL/EXTREMETIES Musculoskeletal/Extremeties: FROM, Tender - Areas of erythema to right medial lower leg, ankle - NEURO Level of Consciousness: Awake, Alert, Appropriate Motor/Sensory: No Motor Deficit, No Sensory Deficit - DERM Integumentary: Warm, Dry, Rash - 2 small erythematous areas to right medial lower leg close to ankle Course - Re-evaluation Re-evalutation: 01/26/19 02:05 Patient's physical exam is consistent with cellulitis. A bedside ultrasound was done and no pocket of fluid was noted. Patient will be sent home on Keflex. Her urinalysis is unremarkable and the blood that she has in her urine is consistent with her at the end of her menstrual cycle. She will follow-up with a primary care provider in regards to this visit. Follow-up precautions were given. Verbal discharge instructions were given to the patient. They verbalized understanding. They are stable for discharge. - Vital Signs Vital signs: Temp Pulse Resp BP Pulse Ox 98.1 F 99 16 137/85 H 97 01/25/19 23:23 01/25/19 23:23 01/25/19 23:23 01/25/19 23:23 01/25/19 23:23 - Laboratory Laboratory results interpreted by me: 01/25/19 23:22 Urine Glucose (UA) >=500 H Urine Blood LARGE H Discharge - Discharge Clinical Impression: Dysuria Cellulitis Qualifiers: Site of cellulitis: extremity Site of cellulitis of extremity: lower extremity Laterality: right Qualified Code(s): L03.115 - Cellulitis of right lower limb Condition: Stable Disposition: HOME, SELF-CARE Additional Instructions: The rash is likely due to infection of your skin. You need to take the ant ibiotics as prescribed. Do not stop even if the rash goes away until you have completed all the antibiotics. The area of redness was traced out here in the emergency department with a marking pen. You need to return to emergency department if the redness spreads outside of this area by more than 2 cm in any direction. You should also return if you develop fevers with temperature greater than 101, persistent vomiting, worsening pain, or have any other symptoms that are concerning to you. Your urine was normal. Please follow-up with 1 of the providers below in regards to this visit. Prescriptions: Cephalexin Monohydrate [Keflex 500 mg Capsule] 500 mg PO Q6H 7 Days capsule Sulfamethoxazole/Trimethoprim [Bactrim Ds Tablet] 1 each PO BID 7 Days #14 tablet Referrals: LUIS ENRIQUE GREWAL MD [ACTIVE STAFF] - Follow up as needed BRIDGER DALY MD [ACTIVE STAFF] - Follow up as needed FANTA WEI MD [ACTIVE STAFF] - Follow up as needed
[2019-01-26] MEDS ORDERED: CEPHALEXIN 500 MG CAPSULE PO ONE (02:21)
[2019-01-26] MEDS ORDERED: SULFAMETHOXAZOLE/TRIMETHOPRIM 800-160 MG TABLET PO ONE (02:22)
[2019-01-26 02:47] VITALS: BP 132/81
== END 2019-01-26 02:47 | disposition home or self-care (01) ==
LOC: ER 23:18
DX: L03.115 Cellulitis of right lower limb (principal); R30.0 Dysuria; S80.862A Insect bite (nonvenomous), left lower leg, initial encounter; W57.XXXA Bitten or stung by nonvenomous insect and other nonvenomous arthropods, initial encounter; M54.9 Dorsalgia, unspecified; E11.9 Type 2 diabetes mellitus without complications; Z79.4 Long term (current) use of insulin
CPT/HCPCS: 81001; 99283

== ENCOUNTER 2019-06-08 14:32 | Emergency (ER) | payer OTHER ==
[2019-06-08] MEDS ORDERED: ACETAMINOPHEN 325 MG TABLET PO ONE (15:31)
[2019-06-08] MEDS ORDERED: OXYCODONE HCL IR 5 MG TABLET PO ONE (15:57)
[2019-06-08] MEDS ORDERED: LIDOCAINE 1% INJ-PF (10 MG/ML) 30 ML SDV INJ ONE (15:57)
[2019-06-08] MEDS ORDERED: CLINDAMYCIN HCL 150 MG CAPSULE PO ONE (17:06)
--- NOTE | 2019-06-08 17:12 | ER Document Report ---
ED Skin Rash/Insect Bite/Abscs - General Chief Complaint: Cyst Stated Complaint: VAGINAL CYST Time Seen by Provider: 06/08/19 15:31 Notes: Patient is a 23-year-old female history of type 1 diabetes presents to the emergency department with an abscess in her right groin. States she noticed approximately 3 days ago. States the redness and swelling have gotten worse which is why she presents to the emergency room. Patient voices she does have a history of a pilonidal abscess that had to be surgically removed. Patient is unsure if she has any history of MRSA. Patient's denying any fevers, dysuria, vaginal discharge. TRAVEL OUTSIDE OF THE [place] IN LAST 30 DAYS: No - Related Data Allergies/Adverse Reactions: tramadol Allergy (Verified 01/09/19 09:48) Past Medical History - General Information source: Patient - Social History Smoking Status: Current Every Day Smoker Chew tobacco use (# tins/day): No Frequency of alcohol use: None Drug Abuse: None Family History: Hypertension Patient has suicidal ideation: No Patient has homicidal ideation: No - Past Medical History Cardiac Medical History: Denies: Hx Atrial Fibrillation, Hx Congestive Heart Failure, Hx Heart Attack, Hx Hypercholesterolemia, Hx Hypertension Pulmonary Medical History: Denies: Hx Asthma, Hx Bronchitis, Hx COPD, Hx Pneumonia, Hx Tuberculosis Neurological Medical History: Reports: Hx Migraine. Denies: Hx Seizures Endocrine Medical History: Reports: Hx Diabetes Mellitus Type 1, Hx Diabetes Mellitus Type 2 Renal/ Medical History: Denies: Hx End Stage Renal Disease, Hx Kidney Stones, Hx Peritoneal Dialysis GI Medical History: Denies: Hx Gastroesophageal Reflux Disease, Hx Hiatal Hernia, Hx Ulcer Musculoskeletal Medical History: Denies Hx Arthritis Psychiatric Medical History: Reports: Hx Bipolar Disorder, Hx Depression Denies: Hx Attention Deficit Hyperactivity Disorder, Hx Schizophrenia - Immunizations Hx Diphtheria, Pertussis, Tetanus Vaccination: Yes Review of Systems - Review of Systems Constitutional: denies: Fever EENT: No symptoms reported Cardiovascular: No symptoms reported Respiratory: No symptoms reported Gastrointestinal: No symptoms reported Genitourinary: No symptoms reported Female Genitourinary: No symptoms reported Musculoskeletal: No symptoms reported Skin: See HPI Hematologic/Lymphatic: No symptoms reported Neurological/Psychological: No symptoms reported Physical Exam - Vital signs Vitals: Temp Pulse Resp BP Pulse Ox 98.2 F 111 H 12 138/82 H 99 06/08/19 14:35 06/08/19 14:35 06/08/19 14:35 06/08/19 14:35 06/08/19 14:35 - Notes Notes: GENERAL: Alert, interacts well. No acute distress. HEAD: Normocephalic, atraumatic. EYES: Pupils equal, round, and reactive to light. Extraocular movements intact. ENT: Oral mucosa moist, tongue midline. NECK: Full range of motion. Supple. Trachea midline. LUNGS: Clear to auscultation bilaterally, no wheezes, rales, or rhonchi. No respiratory distress. HEART: Regular rate and rhythm. No murmur ABDOMEN: Soft, non-tender. Non-distended. Bowel sounds present in all 4 quadrants. EXTREMITIES: Moves all 4 extremities spontaneously. No edema, normal radial and dorsalis pedis pulses bilaterally. No cyanosis. BACK: no cervical, thoracic, lumbar midline tenderness. No saddle anesthesia, normal distal neurovascular exam. NEUROLOGICAL: Alert and oriented x3. Normal speech. cranial nerves II through XII grossly intact. PSYCH: Normal affect, normal mood. SKIN: Warm, dry, normal turgor. 5 cm x 4 cm area of erythema and fluctuance noted to patient's right buttocks crease near her vagina. Does not appear to be on her labia minora or mons pubis. Course - Re-evaluation Re-evalutation: 06/08/19 17:09 I&D performed, patient tolerated well, see procedure note. Results patient's physical exam was cellulitic tissue we will treat with antibiotics. Discussed close follow-up with primary care provider with close return precautions as patient is a diabetic. Patient stable for discharge. - Vital Signs Vital signs: Temp Pulse Resp BP Pulse Ox 98.2 F 111 H 12 138/82 H 99 06/08/19 14:35 06/08/19 14:35 06/08/19 14:35 06/08/19 14:35 06/08/19 14:35 Procedures - Incision and Drainage Right groin Type: Simple Anesthetic type: 1% Lidocaine mL's of anesthetic: 5 Blade size: 11 I&D procedure: Betadine prep applied, Sterile dressing applied Incision Method: Incision made by scalpel Amount/type of drainage: Copious, purulent Discharge - Discharge Clinical Impression: Abscess Cellulitis Qualifiers: Site of cellulitis: other site Qualified Code(s): L03.818 - Cellulitis of other sites Condition: Stable Disposition: HOME, SELF-CARE Instructions: Abscess ([facility]), Post Incision and Drainage, Cellulitis ([facility]) Additional Instructions: The rash is likely due to infection of your skin. You need to take the antibiotics as prescribed. Do not stop even if the rash goes away until you have completed all the antibiotics. You need to return to emergency department if the redness spreads outside of this area by more than 2 cm in any direction after taking antibiotics for a full 48 hours. You should also return if you develop fevers with temperature greater than 101, persistent vomiting, worsening pain, or have any other symptoms that are concerning to you. You were seen for an abscess that required drainage. Please clean this area with soap and water twice daily and apply a topical antibiotic. Dress the area after each cleaning. Please return if you develop fever, vomiting, the pain at the site worsens, you notice spreading redness from the area, or you have any other symptoms that are concerning to you. Prescriptions: Clindamycin HCl [Cleocin 150 mg Capsule] 300 mg PO Q8 7 Days capsule Forms: Return to Work
[2019-06-08 17:24] VITALS: BP 127/80
== END 2019-06-08 17:23 | disposition home or self-care (01) ==
LOC: ER 14:32
DX: L02.214 Cutaneous abscess of groin (principal); L03.90 Cellulitis, unspecified; E11.9 Type 2 diabetes mellitus without complications; F17.200 Nicotine dependence, unspecified, uncomplicated; Z88.6 Allergy status to analgesic agent
CPT/HCPCS: 99283

== ENCOUNTER 2019-07-12 16:53 | Emergency (ER) | payer OTHER ==
[2019-07-12] MEDS ORDERED: ONDANSETRON HCL INJ/PF 4 MG/2 ML SDV IV ONE (17:09)
--- NOTE | 2019-07-12 17:11 | ER Document Report ---
ED Medical Screen (RME) - General Chief Complaint: Flank Pain Stated Complaint: FEVER,BACK PAIN,FLANK PAIN TRAVEL OUTSIDE OF THE [place] IN LAST 30 DAYS: No - HPI Notes: 07/12/19 17:10 Patient is a 23-year-old female with a history of insulin-dependent diabetes who presents complaining of "not feeling well" and having nausea, mild abdominal pain that is generalized, nasal congestion with discharge, and glucose in the 4- 500 range. Symptoms began over the past couple days. No fever that she is aware of. I have treated and performed a rapid initial assessment of this patient. A comprehensive ED assessment and evaluation of the patient, analysis of test results and completion of medical decision making process will be conducted by additional ED providers. PHYSICAL EXAMINATION: GENERAL: Well-appearing, well-nourished and in no acute distress. A&Ox4. Answers questions appropriately. Abd: Limited exam in triage, mild generalized tenderness noted. - Related Data Allergies/Adverse Reactions: tramadol Allergy (Verified 01/09/19 09:48) Past Medical History - Past Medical History Cardiac Medical History: Denies: Hx Atrial Fibrillation, Hx Congestive Heart Failure, Hx Heart Attack, Hx Hypercholesterolemia, Hx Hypertension Pulmonary Medical History: Denies: Hx Asthma, Hx Bronchitis, Hx COPD, Hx Pneumonia, Hx Tuberculosis Neurological Medical History: Reports: Hx Migraine. Denies: Hx Seizures Endocrine Medical History: Reports: Hx Diabetes Mellitus Type 1, Hx Diabetes Mellitus Type 2 Renal/ Medical History: Denies: Hx End Stage Renal Disease, Hx Kidney Stones, Hx Peritoneal Dialysis GI Medical History: Denies: Hx Gastroesophageal Reflux Disease, Hx Hiatal Hernia, Hx Ulcer Musculoskeltal Medical History: Denies Hx Arthritis Psychiatric Medical History: Reports: Hx Bipolar Disorder, Hx Depression Denies: Hx Attention Deficit Hyperactivity Disorder, Hx Schizophrenia - Immunizations Hx Diphtheria, Pertussis, Tetanus Vaccination: Yes Physical Exam - Vital signs Vitals: Temp Pulse Resp BP Pulse Ox 98.3 F 105 H 17 142/90 H 99 07/12/19 16:59 07/12/19 16:59 07/12/19 16:59 07/12/19 16:59 07/12/19 16:59 Course - Vital Signs Vital signs: Temp Pulse Resp BP Pulse Ox 98.3 F 105 H 17 142/90 H 99 07/12/19 16:59 07/12/19 16:59 07/12/19 16:59 07/12/19 16:59 07/12/19 16:59
--- NOTE | 2019-07-12 18:07 | ER Document Report ---
ED GI/ - General Chief Complaint: Flank Pain Stated Complaint: FEVER,BACK PAIN,FLANK PAIN Time Seen by Provider: 07/12/19 17:11 Primary Care Provider: ESPERANZA FRIEDMAN MD [Primary Care Provider] - Follow up as needed Information source: Patient Notes: Patient presents with a 2-day history of right-sided back pain that radiates around to the abdomen. Patient does report nausea and dysuria. Patient states that she is concerned about a possible kidney infection. Patient denies any fe josef. TRAVEL OUTSIDE OF THE [place] IN LAST 30 DAYS: No - HPI Patient complains to provider of: Abdominal pain, Flank pain. No: Vomiting Onset: Other - 2 days Timing/Duration: Persistent Quality of pain: Achy Pain Level: 3 Location: RLQ, Right flank Menstrual period history: denies: Associated symptoms: Dysuria. 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 Denies: Hx Seizures Endocrine Medical History: Reports: Hx Diabetes Mellitus Type 1 Musculoskeletal Medical History: Denies Hx Arthritis Psychiatric Medical History: Reports: Hx Bipolar Disorder, Hx Depression Past Surgical History: Reports: Other - Pilonidal cyst - Immunizations Hx Diphtheria, Pertussis, Tetanus Vaccination: Yes Review of Systems - Review of Systems Constitutional: No symptoms reported. denies: Fever EENT: No symptoms reported Cardiovascular: No symptoms reported Respiratory: No symptoms reported Gastrointestinal: Abdominal pain, Nausea. denies: Vomiting Genitourinary: Dysuria, Flank pain Female Genitourinary: No symptoms reported Musculoskeletal: Back pain Skin: No symptoms reported Hematologic/Lymphatic: No symptoms reported Neurological/Psychological: No symptoms reported Physical Exam - Vital signs Vitals: Temp Pulse Resp BP Pulse Ox 98.3 F 105 H 17 142/90 H 99 07/12/19 16:59 07/12/19 16:59 07/12/19 16:59 07/12/19 16:59 07/12/19 16:59 - General General appearance: Appears well, Alert In distress: None - HEENT Head: Normocephalic, Atraumatic Eyes: Normal Conjunctiva: Normal Nasal: Normal Mouth/Lips: Normal Mucous membranes: Normal Neck: Normal, Supple. No: Lymphadenopathy - Respiratory Respiratory status: No respiratory distress Chest status: Nontender Breath sounds: Normal. No: Rales, Rhonchi, Stridor, Wheezing Chest palpation: Normal - Cardiovascular Rhythm: Tachycardia Heart sounds: S1 appreciated, S2 appreciated Murmur: No - Abdominal Inspection: Normal Distension: No distension Bowel sounds: Normal Tenderness: Tender - Epigastric, lower pelvic Organomegaly: No organomegaly - Back Back: CVA tenderness - Bilateral. No: Vertebra tenderness - Extremities General upper extremity: Normal inspection, Normal strength General lower extremity: Normal inspection, Normal strength - Neurological Neuro grossly intact: Yes Cognition: Normal Orientation: AAOx4 Alejandra Coma Scale Eye Opening: Spontaneous [place] Coma Scale Verbal: Oriented [place] Coma Scale Motor: Obeys Commands Alejandra Coma Scale Total: 15 - Psychological Associated symptoms: Normal affect, Normal mood - Skin Skin Temperature: Warm Skin Moisture: Dry Skin Color: Normal Course - Re-evaluation Re-evalutation: 07/12/19 22:28 Patient with UTI and mild leukocytosis, urine will be cultured at this time and patient started on antibiotics. No concern for DKA at this time. Good return precautions discussed with patient. - Vital Signs Vital signs: Temp Pulse Resp BP Pulse Ox 98.5 F 98 17 147/96 H 100 07/12/19 22:41 07/12/19 22:41 07/12/19 22:41 07/12/19 22:41 07/12/19 22:41 - Laboratory Result Diagrams: 07/12/19 17:45 07/12/19 20:13 Laboratory results interpreted by me: 07/12/19 07/12/19 07/12/19 17:45 17:45 20:13 WBC 11.0 H RBC 5.36 H Hgb 16.1 H Hct 47.6 H Creatinine 0.51 L Glucose 155 H Urine Glucose (UA) >=500 H Urine Blood SMALL H Leukocyte Esterase Rfl LARGE H Labs- Entire Visit 07/12/19 07/12/19 07/12/19 17:45 17:45 17:45 WBC 11.0 H RBC 5.36 H Hgb 16.1 H Hct 47.6 H MCV 89 MCH 30.1 MCHC 33.9 RDW 13.0 Plt Count 364 Lymph % (Auto) 18.5 [place] % (Auto) 9.8 Eos % (Auto) 4.2 Baso % (Auto) 1.2 Absolute Neuts (auto) 7.3 Absolute Lymphs (auto) 2.0 Absolute Monos (auto) 1.1 Absolute Eos (auto) 0.5 Absolute Basos (auto) 0.1 Seg Neutrophils % 66.3 VBG pH VBG pCO2 VBG HCO3 VBG Base Excess Sodium Cancelled Potassium Cancelled Chloride Cancelled Carbon Dioxide Cancelled Anion Gap Cancelled BUN Cancelled Creatinine Cancelled Est GFR ( Amer) Cancelled Est GFR (Non-Af Amer) Cancelled Est GFR (MDRD) Non-Af Cancelled Glucose Cancelled Calcium Cancelled Total Bilirubin Cancelled Direct Bilirubin Cancelled Neonat Total Bilirubin Cancelled Neonat Direct Bilirubin Cancelled Neonat Indirect Bili Cancelled AST Cancelled ALT Cancelled Alkaline Phosphatase Cancelled Total Protein Cancelled Albumin Cancelled Lipase Cancelled EGFR Cancelled Urine Color YELLOW Urine Appearance CLOUDY Urine pH 6.0 Ur Specific [place] 1.025 Urine Protein NEGATIVE Urine Glucose (UA) >=500 H Urine Ketones NEGATIVE Urine Blood SMALL H Urine Nitrite (Reflex) NEGATIVE Urine Bilirubin NEGATIVE Urine Urobilinogen NEGATIVE Leukocyte Esterase Rfl LARGE H Urine RBC (Auto) 25 Urine Bacteria (Auto) TRACE Urine WBC (Reflex) 42 Squamous Epi Cells Auto 6 Amorphous Sediment Auto TRACE Urine Mucus (Auto) RARE Urine Ascorbic Acid NEGATIVE Urine HCG, Qual NEGATIVE 07/12/19 07/12/19 20:13 21:10 WBC RBC Hgb Hct MCV MCH MCHC RDW Plt Count Lymph % (Auto) [place] % (Auto) Eos % (Auto) Baso % (Auto) Absolute Neuts (auto) Absolute Lymphs (auto) Absolute Monos (auto) Absolute Eos (auto) Absolute Basos (auto) Seg Neutrophils % VBG pH Cancelled VBG pCO2 Cancelled VBG HCO3 Cancelled VBG Base Excess Cancelled Sodium 137.8 Potassium 4.2 Chloride 105 Carbon Dioxide 26 Anion Gap 7 BUN 11 Creatinine 0.51 L Est GFR ( Amer) > 60 Est GFR (Non-Af Amer) Est GFR (MDRD) Non-Af > 60 Glucose 155 H Calcium 8.4 Total Bilirubin 0.4 Direct Bilirubin 0.2 Neonat Total Bilirubin Not Reportable Neonat Direct Bilirubin Not Reportable Neonat Indirect Bili Not Reportable AST 15 ALT 9 Alkaline Phosphatase 67 Total Protein 6.4 Albumin 3.7 Lipase 77.3 EGFR Urine Color Urine Appearance Urine pH Ur Specific [place] Urine Protein Urine Glucose (UA) Urine Ketones Urine Blood Urine Nitrite (Reflex) Urine Bilirubin Urine Urobilinogen Leukocyte Esterase Rfl Urine RBC (Auto) Urine Bacteria (Auto) Urine WBC (Reflex) Squamous Epi Cells Auto Amorphous Sediment Auto Urine Mucus (Auto) Urine Ascorbic Acid Urine HCG, Qual Discharge - Discharge Clinical Impression: Pyelonephritis Nausea & vomiting Qualifiers: Vomiting type: unspecified Vomiting Intractability: unspecified Qualified Code(s): R11.2 - Nausea with vomiting, unspecified Condition: Stable Disposition: HOME, SELF-CARE Instructions: Antinausea Medication ([facility]), Pyelonephritis ([facility]), Urinary Tract Infection ([facility]) Additional Instructions: Return immediately for any new or worsening symptoms Followup with your primary care provider, call tomorrow to make a followup appointment Urine culture is pending at this time, we will call if you need any different treatment Prescriptions: Cefdinir 300 mg PO BID #20 capsule Phenazopyridine HCl [Pyridium 200 mg Tablet] 200 mg PO TID #15 tablet Ondansetron HCl [Zofran 4 mg Tablet] 1 - 2 tab PO Q6 PRN #15 tablet PRN Reason: Forms: Return to Work Referrals: ESPERANZA FRIEDMAN MD [Primary Care Provider] - Follow up as needed
[2019-07-12 18:17] LABS: ABSOLUTE BASOPHILS # (AUTO) 0.1 10^3/uL (0.0-0.2); ABSOLUTE EOSINOPHILS # (AUTO) 0.5 10^3/uL (0.0-0.6); ABSOLUTE MONOCYTES (AUTO) 1.1 10^3/uL (0.1-1.4); ABSOLUTE NEUT (AUTO) 7.3 10^3/uL (1.7-8.2); BASOPHILS % (AUTO) 1.2 % (0-2); EOSINOPHILS % (AUTO) 4.2 % (0-6); HEMATOCRIT 47.6 % (36.0-47.0); HEMOGLOBIN 16.1 g/dL (12.0-15.5); LYMPHOCYTES % (AUTO) 18.5 % (13-45); MEAN CORPUSCULAR HEMOGLOBIN 30.1 pg (27.0-33.4); MEAN CORPUSCULAR HGB CONC 33.9 g/dL (32.0-36.0); MEAN CORPUSCULAR VOLUME 89 fl (80-97); MONOCYTES % (AUTO) 9.8 % (3-13); PLATELET COUNT 364 10^3/uL (150-450); RED BLOOD COUNT 5.36 10^6/uL (3.72-5.28); SEGMENTED NEUTROPHILS % (AUTO) 66.3 % (42-78); TOTAL CELLS COUNTED % (AUTO) 100 %
[2019-07-12] MEDS: NORMAL SALINE 1000 ML 1,000 ML IV PRN ×2 (18:17→19:51)
[2019-07-12 18:46] LABS: AMORPHOUS SEDIMENT,URINE TRACE /HPF; APPEARANCE,URINE CLOUDY; BILIRUBIN,URINE NEGATIVE (NEGATIVE); GLUCOSE, URINE >=500 mg/dL (NEGATIVE); KETONES,URINE NEGATIVE (NEGATIVE); PROTEIN,URINE NEGATIVE (NEGATIVE); URINE SPECIFIC GRAVITY 1.025; UROBILINOGEN,URINE NEGATIVE mg/dL (<2.0)
[2019-07-12 18:49] LABS: COLOR,URINE YELLOW
[2019-07-12] MEDS ORDERED: CEFTRIAXONE 1 GM/D5W RTU 1 GM/50 ML RTUPB IV ONE (20:13)
[2019-07-12 21:14] LABS: ALBUMIN 3.7 g/dL (3.5-5.0); ALKALINE PHOSPHATASE 67 U/L (38-126); ANION GAP 7 (5-19); ASPARTATE AMINO TRANSFERASE 15 U/L (14-36); BILIRUBIN,DIRECT 0.2 mg/dL (0.0-0.4); BILIRUBIN,TOTAL 0.4 mg/dL (0.2-1.3); BLOOD UREA NITROGEN 11 mg/dL (7-20); CALCIUM 8.4 mg/dL (8.4-10.2); CARBON DIOXIDE 26 mmol/L (22-30); CHLORIDE 105 mmol/L (98-107); GLUCOSE 155 mg/dL (75-110); POTASSIUM 4.2 mmol/L (3.6-5.0); TOTAL PROTEIN 6.4 g/dL (6.3-8.2)
[2019-07-12 22:44] VITALS: BP 147/96
== END 2019-07-12 22:41 | disposition home or self-care (01) ==
LOC: ER 16:53
DX: N12 Tubulo-interstitial nephritis, not specified as acute or chronic (principal); R11.2 Nausea with vomiting, unspecified; D72.829 Elevated white blood cell count, unspecified; M54.9 Dorsalgia, unspecified; R10.9 Unspecified abdominal pain; R10.31 Right lower quadrant pain; R10.816 Epigastric abdominal tenderness; R11.0 Nausea; R30.0 Dysuria; R00.0 Tachycardia, unspecified; E11.9 Type 2 diabetes mellitus without complications; F17.200 Nicotine dependence, unspecified, uncomplicated; Z88.6 Allergy status to analgesic agent
CPT/HCPCS: 99283; 96361; 96375; 96365; 36415; 87086; 83690; 85025; 81025; 87088; 80053; 81001; J2405; J7030; J0696

== ENCOUNTER 2019-11-19 13:16 | Emergency (ER) | payer OTHER ==
[2019-11-19 13:27] VITALS: BP 145/99
--- NOTE | 2019-11-19 13:44 | ER Document Report ---
ED Medical Screen (RME) - General Chief Complaint: Abscess Stated Complaint: ABSCESS/BUTTOCKS Time Seen by Provider: 11/19/19 13:41 Primary Care Provider: ESPERANZA FRIEDMAN MD [Primary Care Provider] - Follow up as needed Mode of Arrival: Ambulatory Information source: Patient Notes: 24-year-old female type 1 diabetes presented emergency department with concern for abscess to her right buttock. Patient reports this is been there for approximately 1 week. She states that it was draining but now it has closed up and is getting larger. She denies any fevers. She does report a history of multiple abscesses in the past. Unable to thoroughly evaluate patient in triage. I have greeted and performed a rapid initial assessment of this patient. A comprehensive ED assessment and evaluation of the patient, analysis of test results and completion of the medical decision making process will be conducted by additional ED providers. I have specifically instructed the patient or family members with the patient to immediately return to any nursing staff should anything change in the patient's condition or with their chief complaint. TRAVEL OUTSIDE OF THE [place] IN LAST 30 DAYS: No - Related Data Allergies/Adverse Reactions: tramadol Allergy (Verified 11/19/19 13:38) Home Medications: novolin 20units BID Past Medical History - Social History Chew tobacco use (# tins/day): No Frequency of alcohol use: None Drug Abuse: None - Past Medical History Cardiac Medical History: Denies: Hx Atrial Fibrillation, Hx Congestive Heart Failure, Hx Heart Attack, Hx Hypercholesterolemia, Hx Hypertension Pulmonary Medical History: Denies: Hx Asthma, Hx Bronchitis, Hx COPD, Hx Pneumonia, Hx Tuberculosis Neurological Medical History: Reports: Hx Migraine. Denies: Hx Seizures Endocrine Medical History: Reports: Hx Diabetes Mellitus Type 1, Hx Diabetes Mellitus Type 2 Renal/ Medical History: Denies: Hx End Stage Renal Disease, Hx Kidney Stones, Hx Peritoneal Dialysis GI Medical History: Denies: Hx Gastroesophageal Reflux Disease, Hx Hiatal Hernia, Hx Ulcer Musculoskeltal Medical History: Denies Hx Arthritis Psychiatric Medical History: Reports: Hx Bipolar Disorder, Hx Depression Denies: Hx Attention Deficit Hyperactivity Disorder, Hx Schizophrenia Past Surgical History: Reports: Other - Pilonidal cyst - Immunizations Hx Diphtheria, Pertussis, Tetanus Vaccination: Yes Physical Exam - Vital signs Vitals: Temp Pulse Resp BP Pulse Ox 98.1 F 88 20 145/99 H 98 11/19/19 13:26 11/19/19 13:26 11/19/19 13:26 11/19/19 13:26 11/19/19 13:26 Course - Vital Signs Vital signs: Temp Pulse Resp BP Pulse Ox 98.1 F 88 20 145/99 H 98 11/19/19 13:39 11/19/19 13:26 11/19/19 13:26 11/19/19 13:26 11/19/19 13:26 Doctor's Discharge - Discharge Referrals: ESPERANZA FRIEDMAN MD [Primary Care Provider] - Follow up as needed
--- NOTE | 2019-11-19 14:01 | ER Document Report ---
ED Skin Rash/Insect Bite/Abscs - General Chief Complaint: Abscess Stated Complaint: ABSCESS/BUTTOCKS Time Seen by Provider: 11/19/19 13:41 Primary Care Provider: ESPERANZA FRIEDMAN MD [Primary Care Provider] - Follow up as needed Mode of Arrival: Ambulatory Information source: Patient Notes: 24-year-old female past medical history significant for diabetes and previous abscesses presents to the emergency room complaining of an abscess to her right buttock for the past week. Patient states it did drain for a couple of days but has not drained in the past 2 days. Has had previous abscesses that have had to been I&D, history of a prior pilonidal cyst that she had to have a surgical incision and drainage for. She denies any fevers. Has been taking naproxen for pain. Has not been on any recent antibiotics in the past month. Denies any chance of . TRAVEL OUTSIDE OF THE [place] IN LAST 30 DAYS: No - Related Data Allergies/Adverse Reactions: tramadol Allergy (Verified 11/19/19 13:38) Home Medications: novolin 20units BID Past Medical History - General Information source: Patient - Social History Smoking Status: Never Smoker Chew tobacco use (# tins/day): No Frequency of alcohol use: None Drug Abuse: None Family History: Reviewed & Not Pertinent, Hypertension Patient has homicidal ideation: No - Past Medical History Cardiac Medical History: Denies: Hx Atrial Fibrillation, Hx Congestive Heart Failure, Hx Heart Attack, Hx Hypercholesterolemia, Hx Hypertension Pulmonary Medical History: Denies: Hx Asthma, Hx Bronchitis, Hx COPD, Hx Pneumonia, Hx Tuberculosis Neurological Medical History: Reports: Hx Migraine. Denies: Hx Seizures Endocrine Medical History: Reports: Hx Diabetes Mellitus Type 1, Hx Diabetes Mellitus Type 2 Renal/ Medical History: Denies: Hx End Stage Renal Disease, Hx Kidney Stones, Hx Peritoneal Dialysis GI Medical History: Denies: Hx Gastroesophageal Reflux Disease, Hx Hiatal Hernia, Hx Ulcer Musculoskeletal Medical History: Denies Hx Arthritis Psychiatric Medical History: Reports: Hx Bipolar Disorder, Hx Depression Denies: Hx Attention Deficit Hyperactivity Disorder, Hx Schizophrenia Past Surgical History: Reports: Other - Pilonidal cyst - Immunizations Hx Diphtheria, Pertussis, Tetanus Vaccination: Yes Review of Systems - Review of Systems Constitutional: No symptoms reported Cardiovascular: No symptoms reported Respiratory: No symptoms reported Gastrointestinal: No symptoms reported Skin: Other - Abscess -: Yes All other systems reviewed and negative Physical Exam - Vital signs Vitals: Temp Pulse Resp BP Pulse Ox 98.1 F 88 20 145/99 H 98 11/19/19 13:26 11/19/19 13:26 11/19/19 13:26 11/19/19 13:26 11/19/19 13:26 - General General appearance: Appears well, Alert In distress: Mild - Respiratory Respiratory status: No respiratory distress Chest status: Nontender Breath sounds: Normal Chest palpation: Normal - Cardiovascular Rhythm: Regular Heart sounds: Normal auscultation Murmur: No - Abdominal Inspection: Normal Distension: No distension Bowel sounds: Normal Tenderness: Nontender Organomegaly: No organomegaly - Back Back: Normal, Nontender - Neurological Neuro grossly intact: Yes Cognition: Normal Orientation: AAOx4 Alejandra Coma Scale Eye Opening: Spontaneous [place] Coma Scale Verbal: Oriented [place] Coma Scale Motor: Obeys Commands Alejandra Coma Scale Total: 15 Speech: Normal Motor strength normal: LUE, RUE, LLE, RLE Sensory: Normal - Skin Skin Temperature: Warm Skin Moisture: Dry Skin Color: Erythema Skin irregularity: Abscess - There is a 3 cm nonfluctuant abscess noted to the right buttock. Tender but not warm to touch. No active discharge or drainage noted. Location of irregularity: Other - Right Buttock Character of irregularity: Erythematous Course - Re-evaluation Re-evalutation: 11/19/19 14:05 Patient with a nonfluctuant abscess to the right buttock area. Patient was counseled to continue with warm compresses 20 minutes 3 times a day. Antibiotics as prescribed. Recommend an outpatient follow-up with a general surgeon since she has had recurrent abscesses in the past. Can continue with naproxen for pain. She was given strict return to the emergency room guidelines. Return for any new or worsening symptoms. All questions were answered. Patient verbalized understanding and agrees with plan of care. - Vital Signs Vital signs: Temp Pulse Resp BP Pulse Ox 98.1 F 88 20 145/99 H 98 11/19/19 13:39 11/19/19 13:26 11/19/19 13:26 11/19/19 13:11/19/19 13:26 Discharge - Discharge Clinical Impression: Abscess of right buttock Condition: Stable Disposition: HOME, SELF-CARE Instructions: Abscess ([facility]) Additional Instructions: Warm compresses 20 minutes 3 times a day. Antibiotics as prescribed. Outpatient follow-up with general surgery as discussed. Return for any new or worsening symptoms. Prescriptions: Clindamycin HCl 300 mg PO QID 10 Days #40 capsule Referrals: ESPERANZA FRIEDMAN MD [Primary Care Provider] - Follow up as needed SLIM SALAZAR MD [ACTIVE STAFF] - Follow up in 3-5 days (Call for outpatient follow-up appointment.)
== END 2019-11-19 14:53 | disposition home or self-care (01) ==
LOC: ER 13:16
DX: L02.31 Cutaneous abscess of buttock (principal); E11.9 Type 2 diabetes mellitus without complications; Z88.6 Allergy status to analgesic agent
CPT/HCPCS: 99282

== ENCOUNTER 2020-07-17 17:26 | Emergency (ER) | payer OTHER ==
--- NOTE | 2020-07-17 20:17 | ER Document Report ---
ED Medical Screen (RME) - General Chief Complaint: Flu Symptoms Stated Complaint: HIGH BLOOD SUGAR, CHEST PAIN Time Seen by Provider: 07/17/20 20:10 Primary Care Provider: ESPERANZA FRIEDMAN MD [Primary Care Provider] - Follow up as needed Mode of Arrival: Ambulatory Information source: Patient Notes: HPI; 24-year-old female presents to the emergency room complaining of chest pain, headache, fatigue for the past 6 days. No fevers. Describes the chest pain is midsternal and sharp. Has taken ibuprofen without relief. Also states her blood sugars been running in the high 400s today taking her insulin as prescribed. Positive COVID-19 exposure within the last 2 weeks. Has not been tested for Covid. PE: Alert and oriented x3. Lungs: Clear to auscultation without rales, rhonchi, wheezes. Heart: Tachycardic without murmurs, rubs, gallops. I have greeted and performed a rapid initial assessment of this patient. A comprehensive ED assessment and evaluation of the patient, analysis of test results and completion of the medical decision making process will be conducted by additional ED providers. I have specifically instructed the patient or family members with the patient to immediately return to any nursing staff should anything change in the patient's condition or with their chief complaint. TRAVEL OUTSIDE OF THE [place] IN LAST 30 DAYS: No - Related Data Allergies/Adverse Reactions: tramadol Allergy (Verified 07/17/20 20:11) Home Medications: novalin Past Medical History - Past Medical History Cardiac Medical History: Denies: Hx Atrial Fibrillation, Hx Congestive Heart Failure, Hx Heart Attack, Hx Hypercholesterolemia, Hx Hypertension Pulmonary Medical History: Denies: Hx Asthma, Hx Bronchitis, Hx COPD, Hx Pneumonia, Hx Tuberculosis Neurological Medical History: Reports: Hx Migraine. Denies: Hx Seizures Endocrine Medical History: Reports: Hx Diabetes Mellitus Type 1, Hx Diabetes Mellitus Type 2 Renal/ Medical History: Denies: Hx End Stage Renal Disease, Hx Kidney Stones, Hx Peritoneal Dialysis GI Medical History: Denies: Hx Gastroesophageal Reflux Disease, Hx Hiatal Hernia, Hx Ulcer Musculoskeltal Medical History: Denies Hx Arthritis Psychiatric Medical History: Reports: Hx Bipolar Disorder, Hx Depression Denies: Hx Attention Deficit Hyperactivity Disorder, Hx Schizophrenia Past Surgical History: Reports: Other - Pilonidal cyst - Immunizations Hx Diphtheria, Pertussis, Tetanus Vaccination: Yes Physical Exam - Vital signs Vitals: Temp Pulse Resp BP Pulse Ox 98.0 F 98 17 139/74 H 99 07/17/20 17:57 07/17/20 17:57 07/17/20 17:57 07/17/20 17:57 07/17/20 17:57 Course - Vital Signs Vital signs: Temp Pulse Resp BP Pulse Ox 98.0 F 98 17 139/74 H 99 07/17/20 17:57 07/17/20 17:57 07/17/20 17:57 07/17/20 17:57 07/17/20 17:57 Doctor's Discharge - Discharge Referrals: ESPERANZA FRIEDMAN MD [Primary Care Provider] - Follow up as needed
--- NOTE | 2020-07-17 21:03 | RADIOLOGY REPORT (SQ) ---
EXAM DESCRIPTION: XR CHEST 1 VIEW COMPLETED DATE/TME: 07/17/2020 20:25 CLINICAL HISTORY: 24 years, Female, chest pain COMPARISON: 08/20/2018 TECHNIQUE: PA view of the chest . FINDINGS: Cardiomediastinal silhouette is not enlarged. No suspicious acute lung pleural bone abnormalities. IMPRESSION: Unremarkable chest x-ray
[2020-07-17] MEDS ORDERED: RINGERS SOLUTION,LACTATED 1,000 ML IV ONE (21:30)
[2020-07-17] MEDS ORDERED: ACETAMINOPHEN 325 MG TABLET PO ONE (23:03)
[2020-07-17 23:37] LABS: ABSOLUTE EOSINOPHILS # (AUTO) 0.3 10^3/uL (0.0-0.6); ABSOLUTE LYMPHOCYTES (AUTO) 2.5 10^3/uL (0.5-4.7); ABSOLUTE MONOCYTES (AUTO) 0.6 10^3/uL (0.1-1.4); ABSOLUTE NEUT (AUTO) 4.1 10^3/uL (1.7-8.2); BASOPHILS % (AUTO) 0.5 % (0-2); EOSINOPHILS % (AUTO) 4.5 % (0-6); HEMATOCRIT 42.9 % (36.0-47.0); HEMOGLOBIN 14.6 g/dL (12.0-15.5); MEAN CORPUSCULAR HEMOGLOBIN 30.4 pg (27.0-33.4); MEAN CORPUSCULAR VOLUME 89 fl (80-97); MONOCYTES % (AUTO) 8.1 % (3-13); PLATELET COUNT 388 10^3/uL (150-450); RED CELL DISTRIBUTION WIDTH 13.7 % (11.5-14.0); SEGMENTED NEUTROPHILS % (AUTO) 53.9 % (42-78); TOTAL CELLS COUNTED % (AUTO) 100 %; WHITE BLOOD COUNT 7.7 10^3/uL (4.0-10.5)
--- NOTE | 2020-07-17 23:42 | EKG REPORT ---
SEVERITY:- BORDERLINE ECG - SINUS TACHYCARDIA PROBABLE LEFT ATRIAL ABNORMALITY : Confirmed by: Guillaume Valentine 17-Jul-2020 23:41:15
[2020-07-17 23:59] LABS: ALBUMIN 4.3 g/dL (3.5-5.0); ALKALINE PHOSPHATASE 67 U/L (38-126); ANION GAP 8 (5-19); ASPARTATE AMINO TRANSFERASE 20 U/L (14-36); BILIRUBIN,DIRECT 0.2 mg/dL (0.0-0.4); BILIRUBIN,TOTAL 0.3 mg/dL (0.2-1.3); BLOOD UREA NITROGEN 11 mg/dL (7-20); CALCIUM 9.6 mg/dL (8.4-10.2); CARBON DIOXIDE 28 mmol/L (22-30); CHLORIDE 103 mmol/L (98-107); CREATINE KINASE 51 U/L (30-135); GLUCOSE 108 mg/dL (75-110); POTASSIUM 4.7 mmol/L (3.6-5.0); TOTAL PROTEIN 7.3 g/dL (6.3-8.2)
[2020-07-18 00:18] LABS: CREATINE KINASE MB 0.59 ng/mL (<4.55); TROPONIN I < 0.012 ng/mL
[2020-07-18 00:42] VITALS: BP 140/83
--- NOTE | 2020-07-18 00:54 | ER Document Report ---
ED Flu Like - General Chief Complaint: Flu Symptoms Stated Complaint: HIGH BLOOD SUGAR, CHEST PAIN Time Seen by Provider: 07/17/20 20:10 Primary Care Provider: ESPERANZA FRIEDMAN MD [Primary Care Provider] - Follow up as needed Mode of Arrival: Ambulatory Information source: Patient Notes: 24-year-old female presented to ED for complaint of chest pain headache fatigue for the last 6 days. She states she has not had any fevers or chills. She describes the pain is intermittent sternal and sharp. She had been taken ibuprofen with no relief. She states her blood sugar was running in the 400s today and has been taking her insulin as prescribed. She stated she had been exposed to COVID-19 within the last 2 weeks but had not been tested. Constitutional: Negative for fever. HENT: Runny nose cough and congestion Eyes: Negative for visual changes. Cardiovascular: Midsternal sharp chest pain with shortness of breath Respiratory: Complaint of chest pain shortness of breath with Covid exposure Gastrointestinal: Negative for abdominal pain, vomiting or diarrhea. Genitourinary: Negative for dysuria. Musculoskeletal: Negative for back pain. Skin: Negative for rash. Neurological: Negative for headaches, weakness or numbness. 10 point ROS negative except as marked above and in HPI. VITAL SIGNS: Within normal limits. GENERAL: No acute distress, non-toxic appearance. HEAD: Normal with no signs of head trauma. EYES: PERRLA, EOMI, conjunctiva normal, no discharge. EARS: Hearing grossly intact. NOSE: Mild nasal drainage THROAT: Oropharynx is normal. NECK: Normal range of motion, no tenderness, supple, no lymphadenopathy, No adenopathy, no JVD. CHEST: Clear breath sounds bilaterally. No wheezes, rales, or rhonchi. CARDIAC: Regular rate and rhythm. S1 and S2, without murmurs, gallops, or rubs. VASCULAR: No Edema. Peripheral pulses normal and equal in all extremities. ABDOMEN: Normal and soft with no tenderness, no masses or pulsatile masses. GASTROINTESTINAL: Bowel sounds normal GENITOURINARY: Normal, No tenderness LYMPATHTIC: No lymphadenopathy noted. MUSCULOSKELETAL: Good range of motion of all major joints. Extremities without clubbing, cyanosis or edema. NEUROLOGICAL: Alert and oriented x 3. No focal sensory or strength deficits. Speech normal. Follows commands appropriately. PSYCHIATRIC: Normal Affect, judgement and mood. SKIN: Normal appearance with no rashes or lesions. TRAVEL OUTSIDE OF THE [place] IN LAST 30 DAYS: No - Related Data Allergies/Adverse Reactions: tramadol Allergy (Verified 07/17/20 20:11) Home Medications: novalin Past Medical History - General Information source: Patient - Social History Smoking Status: Never Smoker Frequency of alcohol use: None Drug Abuse: None Family History: Reviewed & Not Pertinent, Hypertension - Past Medical History Cardiac Medical History: Reports: None Pulmonary Medical History: Reports: None EENT Medical History: Reports: None Neurological Medical History: Reports: Hx Migraine Endocrine Medical History: Reports: Hx Diabetes Mellitus Type 2 Renal/ Medical History: Reports: None Malignancy Medical History: Reports: None GI Medical History: Reports: None Musculoskeletal Medical History: Reports None Skin Medical History: Reports None Psychiatric Medical History: Reports: Hx Bipolar Disorder, Hx Depression Traumatic Medical History: Reports: None Infectious Medical History: Reports: None Past Surgical History: Reports: Other - Pilonidal cyst - Immunizations Hx Diphtheria, Pertussis, Tetanus Vaccination: Yes Physical Exam - Vital signs Vitals: Temp Pulse Resp BP Pulse Ox 98.0 F 98 17 139/74 H 99 07/17/20 17:57 07/17/20 17:57 07/17/20 17:57 07/17/20 17:57 07/17/20 17:57 Course - Re-evaluation Re-evalutation: 07/18/20 08:06 Labs and x-ray were negative for any acute changes. Blood sugar was within normal limits even though she stated she was running blood sugar 400 all day. Covid test was completed. Lungs were clear to auscultation respirations regular nonlabored. Patient was discharged home with instructions for person under investigation. She stated the pain was all gone at the time I examined her and she was instructed to follow-up with her primary care by telephone. - Vital Signs Vital signs: Temp Pulse Resp BP Pulse Ox 98.2 F 99 16 140/83 H 100 07/18/20 00:41 07/18/20 00:41 07/18/20 00:41 07/18/20 00:41 07/18/20 00:41 - Laboratory Results Result Diagrams: 07/17/20 23:25 07/17/20 23:25 Critical Laboratory Results Reviewed: No Critical Results - Radiology Results Critical Radiology Results Reviewed: No Critical Results Discharge - Discharge Clinical Impression: Flu-like symptoms, Person under investigation for COVID-19 Condition: Stable Disposition: HOME, SELF-CARE Instructions: COVID-19 Guidance for Persons Under Investigation Additional Instructions: CHEST PAIN OF UNCLEAR CAUSE: The exact cause of your chest pain isn't clear. Fortunately, there is no evidence of a dangerous medical condition. Further testing may be required to find the source of the pain. Most often, we find that this pain is coming from the chest wall -- the muscles or rib joints in the chest. But chest pain can come from the lung and lung lining, the esophagus, the heart valves or heart lining, and even the stomach or gallbladder. Rest. Eat lightly until the pain is gone. We may prescribe medicine for pain and inflammation. You should call the physician immediately if the pain radiates to the shoulder, jaw or arms; if you start to run a fever or develop a cough; or if you develop shortness of breath, or other new or alarming symptoms. NORMAL EXAM AND WORKUP: At this time, your examination and workup show no significant abnormality. No significant abnormal physical findings were noted. All laboratory, EKG, and imaging (x-ray, CT scans, ultrasound) studies that were ordered show no significant abnormality. Although your examination and all studies that were ordered showed no significant abnormal finding, there are no examinations and no studies that are 100% accurate. There is always the possibility that some abnormality could exist and not be detected with physical examination or within the limits and capabilities of laboratory and other studies. You should return or follow up as you were instructed on your visit today for further evaluation if your symptoms do not resolve. UPPER RESPIRATORY ILLNESS: You have a viral infection of the respiratory passages -- a "cold." This common infection causes nasal congestion, drainage, and often sore throat and cough. It is highly contagious. The disease usually lasts about 10 to 14 days. There is no "cure" for the viral infection -- it must run its course. If there is a complication, such as bacterial infection in the nose, sinuses, middle ear, or bronchial tubes, antibiotics may be required. The antibiotics won't affect the virus. Drink plenty of fluids. A humidifier may help. An expectorant medication or decongestant may make you more comfortable. Use acetaminophen or ibuprofen for fever or aches. See the doctor if fever persists over two days, if there is any significant worsening of your symptoms, or if you simply fail to improve as expected. You have been recommended treatment with Claritin 10 mg Sudafed 30 mg and Mucinex 600 mg. These are all [id number] medications for cough cold congestion. You do need to call the go to the pharmacist to get the Sudafed from behind the counter please get a little red pills they are more effective. You could also use Flonase which is [id number] 1 spray each nostril twice a day. You could also use salt soda solution gargles. These will help to remove the drainage from the back your throat. Chloraseptic spray was [id number] that will also help with your sore throat. Salt and soda solution gargle 1 quart of water 1 tablespoon of salt 1 teaspoon of baking soda Mixed 3 ingredients together and boil for 1 minute Placed in a covered quart jar Use 1/2 ounce of cold solution to gargle 3 times a day Patient was provided with discharge information including: As a person under investigation for Covid 19, the [place] department of Health and Human Services, division of public health advises you to adhere to th e following guidance until your test results are reported to you. If your test result is positive, you will receive additional information from your provider and your local health department at that time. Remain at home until you are cleared by the health provider or public health authorities. Keep a log of visitors to your home, notify any visitors to your home of your isolation status. If you plan to move to a new address or leave the [facility], notify the local health department in your County. Call your doctor or seek care if you have an urgent medical need. Before seeking medical care, call ahead to get instructions from the provider before arriving at the medical office clinic or hospital. Notify them that you are being tested for the virus that causes Covid 19 so that arrangements can be made, as necessary, to prevent transmission to others in the healthcare setting. Next, notify the local health department in your county. If a medical emergency arises and you need to call 911, inform the first responders that you are being tested for the virus that causes Covid 19. Next, notify the local health department in your county. Forms: Elevated Blood Pressure Referrals: ESPERANZA FRIEDMAN MD [Primary Care Provider] - Follow up as needed
== END 2020-07-18 01:00 | disposition home or self-care (01) ==
LOC: ER 17:26
DX: R07.9 Chest pain, unspecified (principal); R51.9 Headache, unspecified; R68.89 Other general symptoms and signs; R53.83 Other fatigue; Z20.822 Contact with and (suspected) exposure to COVID-19
CPT/HCPCS: 93005; 99285; 36415; 82553; 82962; 82550; 84703; 85025; 80053; 84484; 71045; 93010; U0003; C9803; 87635